=== PATIENT | male | born 1945 | race Caucasian/White ===

== ENCOUNTER 2017-01-28 13:18 | Inpatient (IN) ==
[2017-01-28] MEDS ORDERED: NS 1,000 ML IV SCH (15:30)
[2017-01-28] MEDS ORDERED: ZOFRAN IV PRN (15:30)
[2017-01-28] MEDS ORDERED: TYLENOL PO PRN (15:30)
[2017-01-28] MEDS ORDERED: NORCO-7.5 PO PRN (15:30)
--- NOTE | 2017-01-28 16:11 | EKG Report ---
Test Performed on : 01/28/2017 3:33:42 PM Test Reason : chest pain Blood Pressure : / mmHG Vent. Rate : 067 BPM Atrial Rate : 067 BPM P-R Int : 146 ms QRS Dur : 108 ms QT Int : 428 ms P-R-T Axes : -18 -01 173 degrees QTc Int : 452 ms Sinus rhythm. with premature atrial complexes. with aberrant conduction. T wave abnormality, consider lateral ischemia Abnormal ECG No previous ECGs available Confirmed by Temo Sousa MD ([id number]) on 02/01/2017 8:17:56 AM
[2017-01-28 16:48] LABS: INR 1.2; PROTIME 12.8 Seconds (9.2-11.7); PTT 28.4 Seconds (22.0-36.0)
[2017-01-28 16:49] LABS: EOS# 0.18 X1000 (0.0-0.7); EOS% 3.5 % (0.0-10.0); HEMATOCRIT 25.8 % (42.0-52.0); HEMOGLOBIN 7.1 g/dL (14.0-18.0); LYMPH# 1.19 X1000 (1.2-3.4); MANUAL DIFF NEEDED? YES; MCH 18.3 PG (27-31); MCHC 27.5 g/dL (33-37); MCV 66.7 FL (81-99); MONO# 0.35 X1000 (0.11-0.59); MONO% 6.8 % (1.7-9.3); MPV 10.5 FL (7.4-10.4); NEUT% 65.7 % (42.2-75.2); PLT 178 X1000 (130-400); RBC 3.87 XMIL (4.7-6.1)
[2017-01-28] MEDS ORDERED: SODIUM CHLORIDE 0.9% INJ SCH (17:00)
[2017-01-28 17:06] LABS: EOS 4 % (1-10); LYMPHS 17 % (21-51); MONO 5 % (1-9)
[2017-01-28 17:07] LABS: HYPOCHROM 2+
--- NOTE | 2017-01-28 17:13 | Diag Imaging Result Doc PS360 ---
CHEST-2 VIEWS - 01/28/2017 INDICATION: r/o pna TECHNIQUE: COMPARISON: 02/26/2015 FINDINGS: Stable CABG changes. Stable right-sided pacemaker. Stable cardiomegaly. There are increased markings in the bases, nonspecific. The appearance suggests mild pulmonary edema.. IMPRESSION: Possible mild interstitial pulmonary edema. Stable cardiomegaly. Electronically signed by Rio Mathew 01/28/2017 5:10 PM
--- NOTE | 2017-01-28 17:13 | HISTORY AND PHYSICAL ---
This is a 71-year-old who stated his doctor is Dr. Wilson. For 3 weeks now he has been having epigastric pain that comes on about 10-15 minutes after eating, really eating anything, even drinking water. It has become more intense and a little more common and so had an abdominal ultrasound done per Dr. Wilson made today. He has nonmobile gallstone, gallbladder wall thickening, pericholecystic fluid suspicious for acute cholecystitis, hepatosplenomegaly and so he was sent over here for admission. Will need a cholecystectomy to treat cholecystitis. PAST MEDICAL HISTORY: 1. Diabetes mellitus type 2. 2. Hypertension. 3. Hypercholesterolemia. 4. Coronary artery disease. He is status post 2 different bypasses by his report. He has had 7 bypasses and a couple stents placed. 5. Apparently congestive heart failure. He has been hospitalized I think twice for this. I am assuming this is systolic or ischemic cardiomyopathy. He appears well compensated now. 6. Peripheral vascular disease. He states that he has had 2 bypasses in his right leg and 4 stents in the left leg. I am not sure how accurate that. 7. He has had his appendix taken out. ALLERGIES: No known drug allergies other than cimetidine, codeine makes him nauseated. FAMILY HISTORY: Noncontributory. His daddy, giordano who grew up around [facility]. 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 SOCIAL HISTORY: Unremarkable. REVIEW OF SYSTEMS: In general no weight gain or loss. No fever, chills.HEENT: Unremarkable. Respiratory: No increased work of breathing or dyspnea. Cardiovascular: No chest pain or tachy palpitation. GI/: As noted above. Epigastric pain. Endocrinologic/Hematologic: No significant history. EXAM: Today temp 98.1 degrees, pulse 66, respirations 20, blood pressure 145/53.Pupils: Equal, round. CVP less than 6 cm. Lungs: Clear in all lung burgos. Cardiovascular: Regular rhythm and rate without murmur or S3. Abdomen: Soft, nontender, nondistended. Positive bowel sounds. No hepatosplenomegaly. He is tender to deep palpation in the epigastrium and over right under the right subcostal area consistent with a Pruitt's sign. Skin: Warm and dry. Weight 247 pounds, height 6 feet 3 inches. LAB: White count 5180, hematocrit 25, platelet count 178,000. Pro time 12.8, PTT 28. MEDICATIONS: At home aspirin 325 mg a day. He takes Coreg, takes Plavix, takes Nexium, Lasix and Pravachol. Do not have the doses yet. ASSESSMENT AND PLAN: 1. Acute cholecystitis. I will put him on some Zosyn 3.375 mg IV q.6 and we will give him some IV fluids. Note he is on Plavix so we will need to hold the Plavix. 2. History of coronary artery disease. Aware. No sign of active ischemia. We will check CPK and troponin. 3. History of what sounds like left ventricular systolic dysfunction or ischemic cardiomyopathy. He is well compensated at this time and I do not see any sign of active ischemia. We will of course check a chest x-ray and EKG. 4. Diabetes mellitus type 2. We will check pattern sugars and follow sugars closely as well as electrolytes and renal function. Consult Dr. Chema Purvis. We will put him on Protonix 40 mg IV q.12 hours. cc: Jacob Umanzor MD
[2017-01-28] MEDS ORDERED: KEFZOL 1 GM/D5W 1 GM/50 ML IVPB IV ONE (18:00)
[2017-01-28] MEDS: ZOSYN 3.375 GM/NS 3.375 GM/50 ML IVPB IV SCH (18:17)
[2017-01-28] MEDS: PROTONIX IV SCH (18:19)
[2017-01-28] MEDS: HUMULIN R SUBQ SCH ×2 (18:20→21:52)
--- NOTE | 2017-01-28 18:40 | CONSULTATION ---
DATE OF CONSULTATION: 01/28/2017 CHIEF COMPLAINT: Right upper quadrant pain and tenderness. HISTORY: This is a 71-year-old, obese gentleman who reports a 3-week history of right upper quadrant pain after eating. He had an ultrasound done today showing a stone stuck in the neck of his gallbladder and a dilated gallbladder with some thickening in the wall. PAST MEDICAL HISTORY: Pertinent for ischemic heart disease. Had coronary bypass in the past. He has been worked up by Dr. Villegas recently and found to have a satisfactory heart function. He has had peripheral vascular disease with some revascularization to both legs. He has had diabetes type 2, hypertension, hypercholesterolemia. He has had an appendectomy. FAMILY HISTORY: Noncontributory. 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 Denies alcohol abuse. MEDICATIONS: Listed. ALLERGIES: He has no known drug allergies except Tagamet. REVIEW OF SYSTEMS: Pertinent for the right upper quadrant pain and tenderness. He denies any bleeding. EXAM: He is afebrile. Heart rate 66, respiratory rate 20, blood pressure 145/53. No cervical adenopathy.Lungs: Bilateral breath sounds. Heart: Regular rhythm. Median sternotomy scar is noted. Abdomen: Rotund. He is tender in the right upper quadrant. Bowel sounds are present. He has trace peripheral edema. He is awake and alert. DIAGNOSTICS/LABS: White count 5200, hemoglobin 7.1, hematocrit 25.8, pro time is normal. ASSESSMENT: Acute calculous cholecystitis. I will plan a laparoscopic cholecystectomy. I have discussed it with him. We will plan to proceed in the morning. Anemia is of uncertain etiology. cc: Pete Purvis MD
[2017-01-29] MEDS: ZOSYN 3.375 GM/NS 3.375 GM/50 ML IVPB IV SCH ×4 (00:40→18:26)
[2017-01-29 00:48] LABS: URINE CULTURE NEEDED? NO; URINE MICRO REVIEW NEEDED? NO; URINE SOURCE CLEAN CATCH
[2017-01-29 01:09] LABS: BILIRUBIN URINE NEGATIVE (NEGATIVE); BLOOD URINE NEGATIVE (NEGATIVE); COLOR YELLOW; GLUCOSE URINE NEGATIVE (NEGATIVE); LEUKOCYTES URINE NEGATIVE (NEGATIVE); NITRITE URINE NEGATIVE (NEGATIVE); PH URINE 6.5; PROTEIN URINE TRACE mg/dL (NEGATIVE); SP GRAVITY URINE 1.013; TURBIDITY URINE CLEAR (CLEAR); UR EPITHELIAL CELLS <10 /HPF (<10); URINE BACTERIA NEGATIVE /HPF; URINE RBC <10 /HPF (<10); URINE WBC <10 /HPF (<10); UROBILINOGEN URINE 2 mg/dL (NORMAL)
[2017-01-29 05:21] LABS: HEMOGLOBIN A1C 6.9 % (4.8-6.0)
[2017-01-29 05:22] LABS: AGAP 10; ALBUMIN 3.5 g/dL (3.5-5.0); ALKALINE PHOSPHATASE 83 U/L (32-122); BUN 22 mg/dL (8-22); CALCIUM 8.1 mg/dL (8.8-10.2); CHLORIDE 103 mmol/L (98-107); COSMO 282; GOT 14 U/L (10-34); GPT 7 U/L (10-44); POTASSIUM 4.2 mmol/L (3.5-5.1); SODIUM 140 mmol/L (136-145); TCO2 27 mmol/L (25-35); TOTAL BILIRUBIN 1.02 mg/dL (0.20-1.00); TOTAL PROTEIN 6.4 g/dL (6.3-8.3)
[2017-01-29 05:25] LABS: EOS# 0.26 X1000 (0.0-0.7); HEMATOCRIT 24.7 % (42.0-52.0); HEMOGLOBIN 6.9 g/dL (14.0-18.0); LYMPH# 1.13 X1000 (1.2-3.4); LYMPH% 21.7 % (20.5-51.1); MANUAL DIFF NEEDED? YES; MCH 18.6 PG (27-31); MCHC 27.9 g/dL (33-37); MCV 66.6 FL (81-99); MONO# 0.41 X1000 (0.11-0.59); MONO% 7.9 % (1.7-9.3); MPV 10.4 FL (7.4-10.4); NEUT% 64.4 % (42.2-75.2); PLT 147 X1000 (130-400); RBC 3.71 XMIL (4.7-6.1)
[2017-01-29 05:36] LABS: FREE T4 0.84 ng/dL (0.93-1.70)
[2017-01-29] MEDS: PROTONIX IV SCH ×2 (06:01→18:25)
[2017-01-29 06:13] LABS: BANDS 2 % (0-1); EOS 6 % (1-10); LYMPHS 22 % (21-51); MONO 2 % (1-9); NRBC 1 % (0-0)
[2017-01-29 06:14] LABS: HYPOCHROM 2+
[2017-01-29] MEDS: HUMULIN R SUBQ SCH ×4 (06:19→20:06)
[2017-01-29] MEDS ORDERED: PRILOSEC PO SCH (07:00)
[2017-01-29] MEDS ORDERED: SODIUM CHLORIDE 0.9% ONE (07:19)
[2017-01-29] MEDS ORDERED: LR 1,000 ML ONE (07:19)
[2017-01-29] MEDS ORDERED: MARCAINE 0.25% PF/EPI 1:200,000 ONE (07:19)
[2017-01-29] MEDS ORDERED: KEFZOL 1 GM/D5W 1 GM/50 ML IVPB ONE (08:00)
[2017-01-29] MEDS ORDERED: NORCO-10 PO PRN (09:07)
--- NOTE | 2017-01-29 09:07 | Diag Imaging Result Doc PS360 ---
OPERATIVE CHOLANGIOGRAM - 01/29/2017 INDICATION: GALLBLADDER TECHNIQUE: The exam was performed of the patient's surgeon. Two images were submitted. COMPARISON: None FINDINGS: Contrast was infused into the cystic duct. The common bile duct appears normal. There is good passage of contrast into the duodenum. IMPRESSION: No evidence of complication. Electronically signed by Rio Mathew 01/29/2017 9:05 AM
[2017-01-29] MEDS ORDERED: LABETALOL ONE (09:41)
[2017-01-29] MEDS ORDERED: DIPRIVAN 1% ONE (09:43)
[2017-01-29] MEDS ORDERED: MORPHINE IV PRN (11:01)
--- NOTE | 2017-01-29 11:17 | OPERATIVE NOTE ---
PROCEDURE DATE: 01/29/2017 DATE OF PROCEDURE: 01/29/2017. PROCEDURE PERFORMED: Laparoscopic cholecystectomy with operative cholangiogram. SURGEON: Pete Purvis MD. PEARL GLUE DRIER: Radha Schmidt. PREOPERATIVE DIAGNOSIS: Acute calculous cholecystitis.; anemia. POSTOPERATIVE DIAGNOSIS: Acute calculous cholecystitis.; anemia. FINDINGS: The cholangiogram revealed a normal size common duct, free flow in the duodenum. No intraluminal filling defects were seen. DESCRIPTION OF PROCEDURE: Satisfactory general endotracheal anesthesia achieved, the abdomen was prepped and draped in a sterile fashion. We anesthetized the skin at the base of the umbilicus, made a vertical incision and dissected down the fascia. Scored the fascia, introduced 11 trocar into the abdominal cavity. We insufflated through this trocar. Under direct visualization is to 5 trocar in the midclavicular line, 5 trocar near the anterior axillary line, 11 mm trocar in the midepigastrium. We placed the patient in reverse Trendelenburg and turned him to the left. We identified the fundus of the gallbladder. We had to dissect the omental adhesions off the fundus and infundibulum of the gallbladder. We reflected the gallbladder cephalad and began dissection of the triangle of Calot. We identified the cystic duct, clipped in entrance of the gallbladder, incised the cystic duct and introduced a Dobson catheter. We shot the cholangiogram. The findings above were noted. We removed the cholangiogram catheter, clipped the cystic duct on the opposite side of cystic ductotomy x2 and transected. The cystic artery is identified, clipped proximally x2, distally x1, and divided. We then used the cautery spatula to dissect the gallbladder away from the liver. After complete separation of gallbladder from the liver, we changed videolaparoscope to the mid epigastric trocar, introduced a claw forceps through the umbilical trocar. We then delivered the gallbladder out of the abdominal cavity through the umbilical trocar site. We looked back. Hemostasis was satisfactory. We then desufflated the abdominal cavity and removed our trocars. We closed the fascia at the umbilicus with the 2-0 Polysorb [id number] stitch x3. We placed a 2-0 Polysorb fascial stitch in the epigastrium as well. We closed the skin at each incision with 4-0 Polysorb subcuticular stitches. Sterile OpSite's were applied. He tolerated it well. He was sent to the recovery room in satisfactory condition. cc: MD Gerry Ashton MD
[2017-01-29] MEDS ORDERED: LASIX IV ONE (11:49)
--- NOTE | 2017-01-29 16:40 | PROGRESS NOTE ---
DATE: 01/28/2017 SUBJECTIVE: The patient feels much better. He is status post laparoscopic cholecystectomy. OBJECTIVE: Vital signs: Remains afebrile, temperature 97.8 degrees, pulse 88, respirations 19, blood pressure 117/56. CVP less than 6 cm. Lungs: Clear in all lung burgos. Cardiovascular: Regular rhythm and rate without murmur or S3. Good urine output. LAB: White count 5200, hematocrit 24, platelet count 147,000. Sodium 140, potassium 4.2, chloride 103, bicarb 27, BUN 22, creatinine 1.1. Hemoglobin A1c was 6.9. Cholesterol profile noted. ASSESSMENT AND PLAN: Acute calculus cholecystitis. Laparoscopic cholecystectomy done. Looks like he is doing well. I think they will advance his diet. If does okay today then can go home in the morning. He is on Zosyn 3.375 mg IV q.6. I will continue for now. He is on clear liquid diet. He is getting hydrocodone for pain. cc: Jacob Umanzor MD
[2017-01-29] MEDS ORDERED: PERIDEX MT SCH (21:00)
[2017-01-30] MEDS: ZOSYN 3.375 GM/NS 3.375 GM/50 ML IVPB IV SCH ×2 (01:06→06:45)
[2017-01-30 04:05] VITALS: BP 126/65
[2017-01-30] MEDS: HUMULIN R SUBQ SCH (06:44)
[2017-01-30] MEDS: PROTONIX IV SCH (06:45)
[2017-02-01] MEDS ORDERED: ZOFRAN ONE (08:56)
[2017-02-01] MEDS ORDERED: NEOSTIGMINE ONE (08:56)
[2017-02-01] MEDS ORDERED: XYLOCAINE-MPF 2% ONE (08:57)
[2017-02-01] MEDS ORDERED: EPHEDRINE ONE (08:57)
[2017-02-01] MEDS ORDERED: ZEMURON ONE (08:57)
[2017-02-01] MEDS ORDERED: QUELICIN (DOSE) ONE (08:57)
[2017-02-01] MEDS ORDERED: ROBINUL ONE (08:57)
== END 2017-01-30 07:52 | disposition home or self-care (01) ==
LOC: SUATTDRO 13:18 → DIRADM 13:18 → 4N 15:04
PROVIDERS: ATTEND Emergency Medicine

== ENCOUNTER 2017-02-02 12:11 | Inpatient (IN) ==
[2017-02-02] MEDS ORDERED: LASIX IV ONE (13:24)
--- NOTE | 2017-02-02 14:28 | Diag Imaging Result Doc PS360 ---
EXAM: CHEST-PORTABLE HISTORY: chf TECHNIQUE: AP upright portable at 1350 COMMENT: There is cardiomegaly. There are sternotomy wires. There is a right pacemaker with leads in the right atrium and ventricle. Considering differences in inspiration there is been no significant change since 01/28/2017. IMPRESSION: Cardiomegaly. Stable chest. Electronically signed by Darwin Dang 02/02/2017 2:26 PM
[2017-02-02 14:29] LABS: BASO% 0.9 % (0.0-0.8); EOS# 0.49 X1000 (0.0-0.7); EOS% 8.4 % (0.0-10.0); HEMATOCRIT 27.6 % (42.0-52.0); HEMOGLOBIN 7.9 g/dL (14.0-18.0); LYMPH# 1.26 X1000 (1.2-3.4); LYMPH% 21.6 % (20.5-51.1); MANUAL DIFF NEEDED? YES; MCH 18.8 PG (27-31); MCHC 28.6 g/dL (33-37); MCV 65.7 FL (81-99); MONO# 0.37 X1000 (0.11-0.59); MONO% 6.4 % (1.7-9.3); MPV 10.4 FL (7.4-10.4); NEUT% 62.7 % (42.2-75.2); PLT 192 X1000 (130-400)
[2017-02-02 14:48] LABS: AGAP 11; ALBUMIN 3.5 g/dL (3.5-5.0); ALKALINE PHOSPHATASE 98 U/L (32-122); BUN 26 mg/dL (8-22); CALCIUM 8.5 mg/dL (8.8-10.2); CHLORIDE 98 mmol/L (98-107); COSMO 277; GOT 53 U/L (10-34); GPT 66 U/L (10-44); POTASSIUM 4.4 mmol/L (3.5-5.1); SODIUM 135 mmol/L (136-145); TCO2 26 mmol/L (25-35); TOTAL BILIRUBIN 1.18 mg/dL (0.20-1.00); TOTAL PROTEIN 6.4 g/dL (6.3-8.3)
--- NOTE | 2017-02-02 16:45 | CONSULTATION ---
DATE OF CONSULTATION: 02/02/2017 Mr. Pereira is a 71-year-old gentleman with known history of congestive heart failure, coronary artery disease, status post coronary artery bypass grafting, underwent gallbladder surgery last Tuesday. He comes with complaints of increasing shortness of breath with minimal exertion, increasing pedal edema. In addition, he also states that he had abdominal distention with oozing of serous fluid from his umbilical area where the incision was made. He has noticed some orthopnea as well. He denies chest pain suggestive of angina. There are no palpitations. There is no syncope. REVIEW OF SYSTEMS: A 14-point review of system was done. GI System: There is no history of nausea, vomiting, diarrhea. There is no history of hematemesis or melena. Central nervous system: No focal weakness to suggest a CVA or TIA. Systems: There is no dysuria or hematuria. Abdomen: GI as above. PAST MEDICAL HISTORY: 1. Coronary artery disease, status post coronary artery bypass grafting in July 2000, SVG to PDA, SVG to OM, Y graft to LAD and OM, previous LAI to LAD was intact. 2. Severe LV dysfunction. 3. Systolic heart failure. 4. AICD placement. 5. Anticoagulation therapy. 6. Atrial flutter fibrillation. 7. Hypertension. 8. History of diabetes. 9. Peripheral vascular disease, occluded bilateral SFA. 10. Chronic renal insufficiency. 11. Right femoral to popliteal bypass grafting with saphenous vein graft by Dr. Herrera 09/27/2013. 12. Recent gallbladder surgery. 13. 01/03/2017 Lexiscan, severe fixed defect. Last echocardiogram revealed ejection fraction of 25%. 14. Patient is intolerant to Entresto. HOME MEDICATIONS: Include Xarelto 20 mg a day. Aspirin 81 mg a day. Diovan 160. Cardizem CD 120. Isosorbide mononitrate 60. Pravastatin 40. Lasix 40 p.o. Coreg 6.25 b.i.d. Omeprazole 20. Lantus 36 units subcu once a day. Victoza 1.8 subcu daily. ProAir inhalers. Tramadol. ALLERGIES: He is allergic to Tagamet. SOCIAL HISTORY: He chews tobacco. Does not drink. There is no history of alcohol abuse. PHYSICAL EXAMINATION: Vital Signs: Blood pressure was 160/67. Cardiovascular System: Jugular venous pressure was elevated. First and second heart sounds were heard. There was systolic murmur. Respiratory System: Bibasilar inspiratory crepitations. Abdomen: Was obese, soft. Ascites noted. Recent scars of surgery noted. Bilateral pitting pedal edema. Central nervous system: Alert, oriented, was moving extremities. LABORATORY EXAMINATION: Revealed a sodium 135, potassium 4.4. BUN 26, creatinine 1.0. Bilirubin abnormal at 1.18. AST 53, ALT 66. Chest x-ray: Cardiomegaly, stable chest. ASSESSMENT AND PLAN: Mr. Romain Pereria is a 71-year-old gentleman with history of increasing shortness of breath, cardiomyopathy, had increasing pedal edema and abdominal distention. He also complains of having had oozing from the site of surgery, serosanguineous. He had gallbladder surgery on by Dr. Purvis. Also has past medical history of AICD placement, CABG and diabetes. RECOMMENDATIONS: 1. Given this we will treat him with IV Lasix intravenously given his probable ascites as well as increasing pedal edema and shortness of breath. 2. Continue with his current DONTA inhibitors. 3. He is anticoagulated with Xarelto for stroke prophylaxis. Would recommend continuing that. 4. For GERD he is on omeprazole. I have not made any changes. 5. Hypercholesterolemia. He is on pravastatin. I have not made any changes to his medication. 6. He is on Victoza insulin and Lantus. I have not made any changes. Thank you for the consult. We will follow hospital course. In addition, we will get an ultrasound of his abdomen to assess for ascites and have Dr. Purvis to see him as well. He has an appointment later this week to follow up postoperatively. cc: Good Villegas MD
[2017-02-02 17:28] LABS: IRON SATURATION 3 %; TIBC 378 ug/dL; TOTAL IRON 13 ug/dL (53-167); UNBOUND IRON 365 ug/dL (112-346)
--- NOTE | 2017-02-02 18:42 | PROVIDER DOCUMENTATION ---
This chart was entered by Марина Narvaez Scribe, acting as scribe for Pete Amor MD. HPI-Respiratory General - General Chief Complaint: Shortness of Breath Stated Complaint: FLUID BUILD UP Time Seen by Provider: 02/02/17 12:58 Source: patient Allergies/Adverse Reactions: Patient Allergies Allergy/AdvReac Type Severity Reaction Status Date / Time cimetidine [From Tagame] AdvReac HIVES Verified 02/02/17 17:28 cimetidine HCl * AdvReac HIVES Verified 02/02/17 17:28 [From Tagamet] Home Medications: Home Medication List Medication Instructions Recorded Confirmed Last Taken Type Albuterol Sulfate [Proair Hfa] 8.5 gm INH DIRECTED 02/02/17 02/02/17 Unknown History Diltiazem HCl [Cartia Xt] 120 mg PO DAILY 02/02/17 02/02/17 Unknown History Furosemide [Lasix] 60 mg PO DAILY 02/02/17 02/02/17 Unknown History Insulin Glargine,Hum.rec.anlog 100 unit ORDERED DIRECTED 02/02/17 Unknown History [Lantus] Pravastatin Sodium [Pravastatin 40 mg PO DAILY 02/02/17 02/02/17 Unknown History Sodium] Ranolazine [Ranexa] 1,000 mg PO DAILY 02/02/17 02/02/17 Unknown History Rivaroxaban [Xarelto] 20 mg PO DAILY 02/02/17 02/02/17 Unknown History Valsartan [Valsartan] 160 mg PO DAILY 02/02/17 02/02/17 Unknown History - History of Present Illness-Resp Nature of Presenting Problem: 71 Y/o M presents to ED with Shortness of Breath. Pt was sent her by Dr. Villegas due to fluid build up. C/o of difficulty of breathing qll day but worsens at night. Pt has a hx of heart failure. Quality of Pain: reports: tightness Severity in ED: reports: moderate, severe Onset/Duration: reports: 2 days ago Timing: reports: still present, getting worse Associated Symptoms: reports: shortness of breath. denies: cough, dizziness, fever/chills Recently seen or treated by another doctor?: Yes Review of Systems - Adult - REVIEW OF SYSTEMS - ADULT Constitutional: denies: chills, fever Eyes: reports: no symptoms reported Ears, Nose, Mouth & Throat: reports: no symptoms reported Cardiovascular: reports: PND. denies: chest pain Respiratory: reports: dyspnea on exertion, shortness of breath. denies: cough Gastrointestinal: denies: abdominal pain, diarrhea, nausea, vomiting Genitourinary: reports: no symptoms reported Musculoskeletal: reports: no symptoms reported Integumentary: reports: no symptoms reported Neurological: reports: no symptoms reported Psychiatric: reports: no symptoms reported Endocrine: reports: no symptoms reported Hematologic/Lymphatic: reports: no symptoms reported Allergic/Immunologic: reports: no symptoms reported All Other Systems: Reviewed and Negative Past History - Adult - PAST MEDICAL HISTORY-ADULT Review of Records: reports: Old Records Reviewed, Nursing Assessment Review, Medications Reviewed, Social history reviewed & non-contributory. Cardiovascular: reports: cardiac disease, CHF, HTN, hyperlipidemia Respiratory: reports: asthma Endocrine/Immune: reports: Diabetes - PRIOR SURGERIES/PROCEDURES Surgical/Procedure History: reports: CABG, cardiac stent - IMMUNIZATION STATUS Childhood Immunizations: See Nurse Assessment Flu Vaccine: See Nurse Assessment Physical Exam-General - CONSTITUTIONAL General Appearance: alert, no apparent distress - EYES Eyes: PERRL/EOMI, pink conjunctivae, anisocoria - HEAD, EARS, NOSE, MOUTH & THROAT HENMT: normocephalic/atraumatic, normal ENT inspection, TMs normal, pharynx normal. negative: moist mucous membranes (tongue poorly pa) - NECK Neck: full range of motion, supple, normal inspection, lymphadenopathy (mild distention) - RESPIRATORY Respiratory: lungs clear, normal breath sounds - CARDIOVASCULAR Cardiovascular: regular rate, rhythm, other (pascemaker noted on right side of chest) - GASTROINTESTINAL (ABDOMEN) Abdominal Exam: non tender, soft - MUSCULOSKELETAL Back Exam: normal inspection, no CVA tenderness, no vertebral tenderness Extremity: pedal edema (3+) - SKIN Integumentary: normal color, normal turgor, warm/dry - NEUROLOGIC Neurologic: grossly normal - PSYCHIATRIC Psych/Mental Status: normal mood/affect, normal thought content, normal thought process, oriented x 3 Progress - PLAN OF CARE/RESULTS Progress/Plan/Lab Results: Vital Signs - 8 hr 02/02/17 12:27 02/02/17 16:31 02/02/17 18:21 Temperature 98.5 F Pulse Rate 76 73 68 Respiratory Rate 18 17 15 Blood Pressure 160/67 172/88 168/79 O2 Sat by Pulse Oximetry 100 96 99 Laboratory Results - last 24 hr 02/02/17 02/02/17 02/02/17 14:05 14:05 14:05 WBC 5.82 RBC 4.20 L Hgb 7.9 L Hct 27.6 L MCV 65.7 L MCH 18.8 L MCHC 28.6 L RDW Std Deviation 19.9 H Plt Count 192 MPV 10.4 Immature Gran % (Auto) 0.0 Neut % (Auto) 62.7 Lymph % (Auto) 21.6 [place] % (Auto) 6.4 Eos % (Auto) 8.4 Baso % (Auto) 0.9 H Immature Gran # (Auto) 0.00 Neut # (Auto) 3.65 Lymph # (Auto) 1.26 [place] # (Auto) 0.37 Eos # (Auto) 0.49 Baso # (Auto) 0.05 Segmented Neutrophils Cancelled Band Neutrophils Cancelled Lymphocytes Cancelled Monocytes Cancelled Eosinophils Cancelled Basophils Cancelled Metamyelocytes Cancelled Myelocytes Cancelled Promyelocytes Cancelled Nucleated RBCs Cancelled Atypical Lymphocytes Cancelled Blast Cells Cancelled Hypochromia Cancelled Vacuolization Cancelled Toxic Granulation Cancelled Dohle Bodies Cancelled Large Platelets Cancelled Polychromasia Cancelled Poikilocytosis Cancelled Basophilic Stippling Cancelled Anisocytosis Cancelled Microcytosis Cancelled Macrocytosis Cancelled Spherocytes Cancelled Sickle Cells Cancelled Target Cells Cancelled Ovalocytes Cancelled Stomatocytes Cancelled [place] Bodies Cancelled [place] Cells Cancelled Unidentified Cells Cancelled Schistocytes Cancelled Sodium 135 L Potassium 4.4 Chloride 98 Carbon Dioxide 26 Anion Gap 11 BUN 26 H Creatinine 1.0 Estimated GFR/1.73 m2 > 60 BUN/Creatinine Ratio 26 Glucose 145 H Calculated Osmolality 277 Calcium 8.5 L Iron 13 L TIBC 378 % Saturation 3 Unsat Iron Binding 365 H Total Bilirubin 1.18 H AST 53 H ALT 66 H Alkaline Phosphatase 98 Total Protein 6.4 Albumin 3.5 Globulin 2.9 Albumin/Globulin Ratio 1.2 Orders Category Date Time Status CHEST-PORTABLE [RAD] Stat Exams 02/02/17 13:27 Completed CBC WITH ELECTRONIC DIFF [HEME] Stat Lab 02/02/17 14:05 Completed COMPREHENSIVE METABOLIC PANEL [CHEM] Stat Lab 02/02/17 14:05 Completed UIBC W TOTAL IRON [CHEM] Stat Lab 02/02/17 14:05 Completed Furosemide [Lasix] Med 02/02/17 13:24 Discontinued 60 mg IV NOW ONE Result Diagrams: 02/02/17 14:05 02/02/17 14:05 - CONSULTS/PCP/HOSPITALIST Notification #1 *Consult/PCP/Hospitalist*: Dr Caceres Time Discussed: 18:39 Consult Disposition: Will see in ED Departure - Departure Date of Disposition Decision: 02/02/17 Time of Disposition Decision: 18:40 DIAGNOSIS: CHF (congestive heart failure) Anemia, iron deficiency Qualifiers: Iron deficiency anemia type: unspecified iron deficiency Qualified Code(s): D50.9 - Iron deficiency anemia, unspecified Disposition: ADMITTED INPATIENT 09 Certified Medical Emergency: Emergent Condition: Fair Referrals and Follow-Ups: Gerry Wilson MD [Primary Care Provider] - - Critical Care Note This patient required my direct & personal management of CC.: Yes This chart was documented by the indicated scribe, (Марина Narvaez Scribe) and accurately reflects the services I performed and decisions made by me, Pete Amor MD, as attested by the provider's signature.
[2017-02-02] MEDS: HUMALOG SUBQ SCH (22:52)
[2017-02-03] MEDS: LASIX IV SCH ×3 (00:06→21:51)
[2017-02-03] MEDS ORDERED: VALIUM IV ONE (00:26)
--- NOTE | 2017-02-03 02:28 | HISTORY AND PHYSICAL ---
PRIMARY CARE PROVIDER: Dr. Gerry Wilson. PICKLING OPERATOR: Dr. Villegas. CHIEF COMPLAINT: Increasing shortness of breath and swelling. Sent here by Dr. Villegas for evaluation. HISTORY OF PRESENT ILLNESS: This is a 71-year-old male with a history of congestive heart failure. Last ejection fraction was noted to be around 24% in September of this year. He has other comorbidities, such as diabetes mellitus type 2 and hypertension, as well as coronary artery disease, status post 7 total bypasses within 2 different surgeries, cardiac stent placement. He is a known vasculopathic, with noted peripheral or vascular disease, and has had 2 bypasses, which I believe were a left femoral bypass, and then stenting in the right leg. As noted above, over the last year, the patient states that he has been having to sleep on 2 pillows. He has further complaints of dyspnea on exertion, orthopnea, and PND. He can ambulate for roughly 100 feet without having to take a rest break. He takes all of his medications appropriately, and this last Tuesday, I believe, he had a cholecystectomy. He was noted to have anasarca on examination, with a serous drainage from his umbilicus incision. A chest x-ray was obtained, which showed increased pulmonary vascular markings. The patient does have a pacemaker, which appears to be in a good position, as well as cardiomegaly. LABORATORY DATA: Was around the patient's baseline, but he was noted to have profound chronic anemia, which appears to be from iron deficiency. Also, the patient had elevated liver enzymes. AST 53, ALT 66, and a total bilirubin of 1.18, which can not be quantified at this time. The patient will be admitted to the medical floor for further evaluation and treatment. PAST MEDICAL HISTORY: 1. Congestive heart failure, with a ejection fraction of around 24%, tested in September 2016. 2. Hypertension. 3. Hyperlipidemia. 4. Coronary artery disease, status post 2 coronary artery bypass grafts. He had a total of 7 bypasses, with at least 2 cardiac stents placed. 5. Peripheral vascular disease. PREVIOUS SURGICAL HISTORY: 1. Appendectomy. 2. Right femoral bypass of the lower extremity. 3. Left stenting of the lower extremity. 4. Cholecystectomy. 5. Pacemaker implantation. Unsure if this is an AICD. ALLERGIES: The patient is allergic to some cimetidine, and codeine makes him nauseated. FAMILY HISTORY: Father had diabetes and coronary artery disease, ultimately passing away from a myocardial infarction at age 68. Brother had a myocardial infarction, also passing away at 68. SOCIAL HISTORY: I believe he grew up in the [place] area. 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 He uses smokeless tobacco in the form of dip. He also states that he smokes cigarillos, at least 2 in the morning, sometimes with an additional one during the day after dinner. He denies illicit drug use. States that he did have a history of alcohol use, but has not drank in several years. REVIEW OF SYSTEMS: A 14-point review of systems conducted with the patient. Pertinent positives listed above in the HPI. All other systems were reviewed and found to be negative. PHYSICAL EXAMINATION: VITAL SIGNS: Temperature 98.5 degrees, pulse 62, respirations 15, blood pressure 168/84, oxygen saturation 98% on 2 L nasal cannula. GENERAL: Very pleasant 71-year-old male, lying in the ER stretcher. He is alert, oriented to person, place, time, and situation. He is in no acute distress at this time. HEENT: Head is atraumatic, normocephalic. Pupils equal, round, reactive to light. Extraocular eye movements intact. Sclera is icteric, subconjunctivae is pale. Oral mucosa is moist. NECK: Supple. No JVD. Trachea is midline. CARDIAC: S1-S2 appreciated. Regular rhythm. No murmurs, gallops, or rubs. CHEST: Symmetrical rise and fall with respirations. Right-sided pacemaker noted. LUNGS: Diminished bilaterally. Noted increased tactile fremitus on examination. Otherwise, lungs were clear. No crepitations. No rhonchi. No rales. ABDOMEN: Protuberant, with nonpitting edema to the abdomen. Laparoscopic incisions noted from previous cholecystectomy. Tenderness noted to the surgical sites. Serous fluid drainage noted from the umbilicus incision. Negative fluid wave test. Bowel sounds present in all 4 quadrants. Normoactive. No pulsatile mass. No organomegaly could be palpated. EXTREMITIES: No clubbing or cyanosis. 2+ pitting edema, bilateral lower extremities, from mid jeff to ankle. 2+ pedal pulses bilaterally. GENITOURINARY: Patient voids. No bladder distention noted. Otherwise, deferred. NEUROLOGICAL: No motor focal deficits noted. Otherwise, nonfocal examination. The patient was alert and oriented x4. SKIN: Warm and intact, moist, as noted from laparoscopic sites in the abdomen. Mild erythema noted around the surgical sites. No signs or symptoms of infection. No warmth. No purulent drainage noted. He is mildly jaundiced as well, from the umbilicus up, and from the umbilicus down, he was pale. DIAGNOSTIC DATA: Chest x-ray shows cardiomegaly, mildly increased pulmonary vascular markings. LABORATORY DATA: WBC 5.82, hemoglobin 7.9, hematocrit 27.6, platelet count is 192,000. Sodium 135, potassium 4.4, chloride 98, carbon dioxide 26, BUN 26, creatinine 1, glucose 145. Total bilirubin is 1.18. AST is 53. ALT is 66. Iron is 13. TIBC is 378. ASSESSMENT AND PLAN: 1. Congestive heart failure, with exacerbation. Patient is noted to have a 24% ejection fraction. He takes 60 mg of Lasix at home daily. Will give 40 mg of Lasix b.i.d. while in the hospital. He received a 60 mg IV dose in the emergency room. Strict intake and output. Weights will be checked daily. Echocardiogram or a stress test will not be needed, as both have been done recently. 2. Iron deficiency anemia. We will give Venofer 200 mg daily x3 doses, and then the patient can be discharged on further supplementation. 3. Hypertension. Continue home medications, Diovan and Cardizem. 4. Hyperlipidemia. Continue pravastatin. 5. Chronic pacemaker noted. Continue Xarelto. Diabetes mellitus, that is insulin-dependent. Will start fingerstick blood sugars before meals and at bedtime, and treat with moderate sliding scale. We will place on a heart healthy diabetic diet. Further recommendations per Cardiology. Will consult Dr. Villegas. Will trend patient's clinical progress. Dictated by YOHAN Balderas for Ayo Osullivan MD cc: MD Gerry Van MD Harley C. Bailey, CRNP Lloyd James, MD
[2017-02-03] MEDS: HUMALOG SUBQ SCH ×4 (06:26→21:56)
[2017-02-03 06:38] LABS: EOS# 0.44 X1000 (0.0-0.7); EOS% 9.2 % (0.0-10.0); HEMATOCRIT 26.7 % (42.0-52.0); HEMOGLOBIN 7.4 g/dL (14.0-18.0); LYMPH# 1.01 X1000 (1.2-3.4); LYMPH% 21.2 % (20.5-51.1); MANUAL DIFF NEEDED? YES; MCH 18.1 PG (27-31); MCHC 27.7 g/dL (33-37); MCV 65.4 FL (81-99); MONO# 0.46 X1000 (0.11-0.59); MONO% 9.6 % (1.7-9.3); PLT 187 X1000 (130-400); RBC 4.08 XMIL (4.7-6.1)
[2017-02-03 06:52] LABS: AGAP 10; BUN 24 mg/dL (8-22); CALCIUM 8.3 mg/dL (8.8-10.2); CHLORIDE 102 mmol/L (98-107); COSMO 287; POTASSIUM 4.1 mmol/L (3.5-5.1); SODIUM 141 mmol/L (136-145); TCO2 29 mmol/L (25-35)
[2017-02-03 06:54] LABS: EOS 6 % (1-10); HYPOCHROM 1+; LYMPHS 24 % (21-51); MONO 4 % (1-9)
[2017-02-03] MEDS ORDERED: DIOVAN PO SCH (09:00)
[2017-02-03] MEDS ORDERED: VENOFER IV SCH (09:00)
[2017-02-03] MEDS ORDERED: CARDIZEM CD PO SCH (09:00)
[2017-02-03] MEDS: PRAVACHOL PO SCH (09:34)
[2017-02-03] MEDS: XARELTO PO SCH (09:34)
[2017-02-03] MEDS: RANEXA PO SCH (09:34)
[2017-02-03] MEDS: VALIUM PO PRN ×2 (09:56→21:51)
[2017-02-03] MEDS ORDERED: ZAROXOLYN PO ONE (11:49)
--- NOTE | 2017-02-03 12:14 | PROGRESS NOTE ---
DATE: 02/03/2017 SUBJECTIVE: The patient is feeling better. He complained of having cramp after he got his Lasix. Denies having any fever or chills. He did not have any nausea, vomiting or diarrhea. OBJECTIVE: Vital signs: Blood pressure 131/71, pulse of 66, respirations 21, temperature of 98.3 degrees, satting 97% on 2 L nasal cannula. General appearance: Thin, white male in no acute distress. HEENT: Anicteric sclerae. Clear conjunctivae. Neck: Supple. No JVD. No bruit. Cardiovascular: S1, S2. Normal rate and rhythm. No murmur, rubs or gallops. Pulmonary: Clear to auscultation bilaterally. GI: Soft, nontender, nondistended. Normoactive bowel sounds. Musculoskeletal: No clubbing, cyanosis, or edema. ASSESSMENT/PLAN: A 71-year-old admitted to the hospital for increasing shortness of breath: 1. Shortness of breath is probably secondary to associated congestive heart failure exacerbation. We will continue diuretics. Will change his Lasix to Bumex to see if this helps with his cramping. 2. History of atrial fibrillation. The patient is on Xarelto and diltiazem for rate control and anticoagulation. He is also on Coreg. 3. Iron deficiency anemia. We will continue iron supplement. 4. Hyperlipidemia and coronary artery disease. We will continue on Pravachol for now. 5. Chronic angina. Continue Ranexa. 6. Diabetes type 2. Continue sliding scale insulin. CODE STATUS: The patient is a full code.
[2017-02-03] MEDS: COREG PO SCH ×2 (12:20→21:51)
[2017-02-03] MEDS: LANOXIN PO SCH (12:21)
[2017-02-03] MEDS: ALDACTONE PO SCH (12:21)
[2017-02-03] MEDS: ENTRESTO 24 MG-26 MG TABLET PO SCH ×2 (14:44→21:51)
[2017-02-03] MEDS ORDERED: BUMEX IV SCH (21:00)
[2017-02-04] MEDS ORDERED: TYLENOL PO PRN (02:29)
[2017-02-04] MEDS: ZOFRAN IV PRN ×2 (05:14→13:28)
[2017-02-04] MEDS: HUMALOG SUBQ SCH ×4 (06:28→20:58)
[2017-02-04 07:31] LABS: BASO% 0.5 % (0.0-0.8); EOS# 0.44 X1000 (0.0-0.7); EOS% 4.7 % (0.0-10.0); HEMATOCRIT 30.9 % (42.0-52.0); IMM GRAN# 0.03 X1000 (0.0-0.04); IMM GRAN% 0.3 % (0.0-0.5); LYMPH# 0.89 X1000 (1.2-3.4); LYMPH% 9.4 % (20.5-51.1); MANUAL DIFF NEEDED? NO; MCH 18.8 PG (27-31); MCHC 29.1 g/dL (33-37); MCV 64.4 FL (81-99); MONO# 0.52 X1000 (0.11-0.59); MONO% 5.5 % (1.7-9.3); MPV 10.2 FL (7.4-10.4); NEUT% 79.6 % (42.2-75.2); PLT 216 X1000 (130-400)
[2017-02-04 07:46] LABS: ALBUMIN 3.9 g/dL (3.5-5.0); DIRECT BILIRUBIN 0.3 mg/dL (0.00-0.20); TOTAL BILIRUBIN 1.47 mg/dL (0.20-1.00); TOTAL PROTEIN 6.4 g/dL (6.3-8.3)
--- NOTE | 2017-02-04 07:57 | Diag Imaging Result Doc PS360 ---
EXAM: ABDOMEN FLAT/UPRIGHT HISTORY: Abdominal Pain TECHNIQUE: Three views flat and upright COMMENT: There is stool throughout the colon including the rectosigmoid where there is formed stool. There is atherosclerotic calcification in the distal aorta and iliac arteries. There may be vascular calcifications in the renal arteries particularly on the left. There are surgical clips in the right upper quadrant. There is no evidence organomegaly or mass. The small bowel and stomach are not distended. IMPRESSION: Constipation. Atherosclerosis. Electronically signed by Darwin Dang 02/04/2017 7:55 AM
[2017-02-04 08:00] LABS: POTASSIUM 4.4 mmol/L (3.5-5.1)
[2017-02-04] MEDS: ENTRESTO 24 MG-26 MG TABLET PO SCH ×2 (09:15→20:43)
[2017-02-04] MEDS: PRAVACHOL PO SCH (09:15)
[2017-02-04] MEDS: XARELTO PO SCH (09:15)
[2017-02-04] MEDS: LASIX IV SCH (09:16)
[2017-02-04] MEDS: ALDACTONE PO SCH (09:16)
[2017-02-04] MEDS: LANOXIN PO SCH (09:16)
[2017-02-04] MEDS: COREG PO SCH ×2 (09:16→20:42)
[2017-02-04] MEDS: RANEXA PO SCH (09:16)
[2017-02-04] MEDS: VALIUM PO PRN (09:21)
[2017-02-04] MEDS: COLACE PO SCH (10:25)
[2017-02-04] MEDS: NORCO-5 PO PRN ×2 (10:25→14:24)
[2017-02-04] MEDS: MIRALAX PO SCH (10:25)
--- NOTE | 2017-02-04 10:46 | PROGRESS NOTE ---
DATE: 02/04/2017 SUBJECTIVE: The patient is complaining of abdominal pain. He has described the pain as the same pain that he had when he had the gallbladder removed this past Tuesday. No bowel movement since admission, and no bowel movements at home. X-ray showed some evidence of constipation. The patient is still having pain. No fever. No chills. No nausea, vomiting, or diarrhea. OBJECTIVE: Vital signs: Blood pressure 127/48, pulse of 55, respirations 16, temperature of 97.3 degrees, satting 96% on 3 L. General Appearance: Well developed, well nourished, white male in moderate distress due to right upper quadrant pain. HEENT: Anicteric sclerae. Clear conjunctivae. Neck: Supple. No JVD. No bruit. Cardiovascular: S1, S2. Normal rate and rhythm. No murmur, rubs, or gallops. Pulmonary: Clear to auscultation bilaterally. GI: Tender to palpation on the right upper quadrant while the wounds are well healed. : Normal. Musculoskeletal: No clubbing, cyanosis, or edema. LABORATORY: White count 9.42, hemoglobin 9.0, hematocrit of 30.9 platelets of 216. Chemistry: Sodium 135, potassium 4.4, chloride 92, bicarbonate 34. BUN 21, creatinine 1.2, glucose of 147. Liver function tests within normal limits. ASSESSMENT AND PLAN: This is a 71-year-old admitted to the hospital for acute congestive heart failure exacerbation. 1. Congestive heart failure exacerbation, acute systolic. We will change his Lasix to Bumex today since he is still having cramps with Lasix and the Bumex does not give him cramps. Cardiology is following. The patient is doing well from the standpoint of orthopnea. 2. Right upper quadrant pain probably resolved after surgery. X-ray showed some constipation. We will give him Colace and MiraLAX if this does not resolve. Will get a scan with contrast and make sure there is no leakage. We changed his diet to clear liquid diet. 3. History of heart failure. As above, will continue Aldactone, Coreg and digoxin. 4. History of atrial fibrillation. We will continue digoxin, rate control with Coreg and Xarelto. 5. Code status. The patient is a full code. NOTE: Positive gram-negative burt culture from the wound. The wounds are healing. I am not going to plan to treat the patient.
[2017-02-04] MEDS: VENOFER IV SCH (10:52)
[2017-02-04] MEDS: BUMEX IV SCH (20:43)
[2017-02-05] MEDS: HUMALOG SUBQ SCH ×4 (06:06→21:44)
[2017-02-05 06:46] LABS: BASO% 0.3 % (0.0-0.8); EOS# 0.26 X1000 (0.0-0.7); EOS% 1.7 % (0.0-10.0); HEMATOCRIT 31.3 % (42.0-52.0); IMM GRAN# 0.05 X1000 (0.0-0.04); IMM GRAN% 0.3 % (0.0-0.5); LYMPH# 1.14 X1000 (1.2-3.4); LYMPH% 7.5 % (20.5-51.1); MANUAL DIFF NEEDED? YES; MCH 18.4 PG (27-31); MCHC 28.8 g/dL (33-37); MONO% 6.6 % (1.7-9.3); MPV 10.1 FL (7.4-10.4); NEUT% 83.6 % (42.2-75.2); PLT 214 X1000 (130-400); RBC 4.89 XMIL (4.7-6.1)
[2017-02-05 07:25] LABS: CALCIUM 8.8 mg/dL (8.8-10.2); POTASSIUM 4.2 mmol/L (3.5-5.1)
[2017-02-05 07:26] LABS: BANDS 8 % (0-1); LYMPHS 6 % (21-51); MONO 6 % (1-9)
[2017-02-05] MEDS: NORCO-5 PO PRN ×2 (07:27→12:02)
[2017-02-05] MEDS: ZOFRAN IV PRN (09:00)
[2017-02-05] MEDS: VENOFER IV SCH (09:00)
[2017-02-05] MEDS: ENTRESTO 24 MG-26 MG TABLET PO SCH ×2 (09:01→20:23)
[2017-02-05] MEDS: XARELTO PO SCH (09:01)
[2017-02-05] MEDS: COLACE PO SCH (09:01)
[2017-02-05] MEDS: PRAVACHOL PO SCH (09:01)
[2017-02-05] MEDS: COREG PO SCH ×2 (09:01→20:23)
[2017-02-05] MEDS: ALDACTONE PO SCH (09:01)
[2017-02-05] MEDS: RANEXA PO SCH (09:01)
[2017-02-05] MEDS: MIRALAX PO SCH (09:02)
[2017-02-05] MEDS: LANOXIN PO SCH (09:02)
[2017-02-05] MEDS: BUMEX IV SCH ×2 (09:02→20:23)
--- NOTE | 2017-02-05 11:21 | PROGRESS NOTE ---
DATE: 02/05/2017 SUBJECTIVE: The patient is feeling better. Abdominal pain has much improved. The patient had a bowel movement, making him feel a whole lot better. He did not have any fever or chills, did not have any nausea, vomiting, or diarrhea. OBJECTIVE: Vital signs: Blood pressure 134/49, pulse of 58, respirations 20, temperature 97.9, sats of 94% on room air. General appearance: A well-developed, well-nourished white male in no acute distress. HEENT: Anicteric. Clear conjunctivae. Neck: Supple, no JVD, no bruit. Cardiovascular: S1, S2, normal rate and rhythm. No murmur, rubs, or gallop. Pulmonary: Clear to auscultation bilaterally. GI: Just mild tenderness to deep palpation. The patient did have surgery a week ago. Lower extremities: No clubbing, cyanosis, or edema. LABORATORY: White count 15.26, hemoglobin 9.0, hematocrit 31.3, platelets 214. Chemistry: Sodium 132, potassium 4.2, chloride 88, bicarbonate 32, BUN 25, creatinine 1.2, glucose 159. ASSESSMENT AND PLAN: This is a 27-year-old admitted to the hospital for acute congestive heart failure exacerbation. 1. Acute systolic congestive heart failure exacerbation. Will continue Bumex twice a day. Will keep the patient on digoxin for his congestive heart failure 2. Iron deficiency noted. 3. Hyponatremia is also noted. We will watch the patient carefully. He is also on Aldactone, which can also decrease his sodium and he is also on Entresto per Cardiology for his heart failure. If his sodium continues to drop, will stop Aldactone. 4. Hyperlipidemia. Continue Pravachol. 5. Stable angina. Will continue Ranexa. 6. History of atrial fibrillation. Continue Xarelto and discharge on this--will correct for rate control. 7. Abdominal pain. The patient had a bowel movement, much improved. Will advance his diet today. This patient is a full code, as well.
[2017-02-05] MEDS ORDERED: SAMSCA PO ONE (13:09)
--- NOTE | 2017-02-05 13:26 | PROGRESS NOTE ---
DATE: 02/05/2017 SUBJECTIVE: Mr. Pereira reports he feels better. PHYSICAL EXAMINATION: Vital Signs: He is afebrile. Heart rate is in the 50s. His systolic blood pressures have been anywhere from the 110s to 130s predominantly. His I's and O's over the course of the hospitalization have been negative 7.5 L. General: No acute distress. Cardiovascular: He is in a regular rate and rhythm. He has no obvious murmurs. No S3. He has trace lower extremity edema. Chest: Sounds clear bilaterally. No increased work of breathing. Abdomen: Soft, nontender. PERTINENT DATA: White count is 15.2, hematocrit is 31, platelet count 214,000. His sodium is 132, potassium 4.2, BUN 25, and creatinine is 1.2. ASSESSMENT: 1. Systolic heart failure. 2. Atrial fibrillation. PLAN: We will continue him on his current medications and current level of diuresis. I will give him 1 dose of Samsca 15 mg today, considering his hyponatremia. We will check a proBNP in the morning. Potentially, he is near time for discharge, considering his symptom improvement and profound level of diuresis. cc: Jim Murphy MD
--- NOTE | 2017-02-05 18:24 | Diag Imaging Result Doc PS360 ---
EXAM: ABDOMEN/PELVIS W/CONTRAST INDICATION: abdominal pain COMPARISON: None. FINDINGS: There has been a recent cholecystectomy. There are expected mild postsurgical changes in the gallbladder fossa. There is no evidence of bile leak. There is no evidence of biliary dilatation. There is mild renal cortical scarring at the upper pole of the right kidney. There is trace nonspecific fluid layering in the pelvis. There is no evidence of bowel obstruction. There is no free abdominal gas. There are a few colonic diverticula but there is no evidence of diverticulitis. There is extensive aortoiliac atherosclerotic calcification. There is no evidence of aneurysm. The remainder of the solid viscera of the abdomen and pelvis and the remainder of the GI tract are essentially unremarkable. There are degenerative changes throughout the spine. The bony structures are grossly intact. IMPRESSION: 1.Nonspecific trace free fluid layering in the pelvis. 2.Mild postsurgical changes related to a recent cholecystectomy. 3.Other incidental/nonacute findings detailed above. Electronically signed by Juaquin Melendez 02/05/2017 6:22 PM
[2017-02-05] MEDS ORDERED: TUMS PO ONE (22:54)
[2017-02-06] MEDS: NORCO-5 PO PRN ×4 (01:10→15:24)
[2017-02-06] MEDS: ZOFRAN IV PRN ×2 (01:14→18:18)
[2017-02-06] MEDS: HUMALOG SUBQ SCH ×4 (06:35→20:46)
[2017-02-06 06:56] LABS: BASO% 0.2 % (0.0-0.8); EOS% 0.7 % (0.0-10.0); HEMOGLOBIN 9.3 g/dL (14.0-18.0); IMM GRAN# 0.04 X1000 (0.0-0.04); IMM GRAN% 0.3 % (0.0-0.5); LYMPH# 0.82 X1000 (1.2-3.4); LYMPH% 5.9 % (20.5-51.1); MANUAL DIFF NEEDED? YES; MCH 18.7 PG (27-31); MCHC 29.1 g/dL (33-37); MCV 64.3 FL (81-99); MONO# 0.93 X1000 (0.11-0.59); MONO% 6.7 % (1.7-9.3); MPV 10.8 FL (7.4-10.4); NEUT% 86.2 % (42.2-75.2); PLT 242 X1000 (130-400); RBC 4.98 XMIL (4.7-6.1)
[2017-02-06 07:18] LABS: CALCIUM 8.8 mg/dL (8.8-10.2); POTASSIUM 4.2 mmol/L (3.5-5.1)
[2017-02-06 07:33] LABS: BANDS 14 % (0-1); LYMPHS 4 % (21-51); MONO 2 % (1-9); NRBC 1 % (0-0)
[2017-02-06 07:34] LABS: HYPOCHROM 1+
[2017-02-06] MEDS: VENOFER IV SCH (09:25)
[2017-02-06] MEDS: BUMEX IV SCH (09:26)
[2017-02-06] MEDS: RANEXA PO SCH (09:26)
[2017-02-06] MEDS: COREG PO SCH ×2 (09:26→20:44)
[2017-02-06] MEDS: ALDACTONE PO SCH (09:26)
[2017-02-06] MEDS: PRAVACHOL PO SCH (09:26)
[2017-02-06] MEDS: ENTRESTO 24 MG-26 MG TABLET PO SCH ×2 (09:26→20:44)
[2017-02-06] MEDS: XARELTO PO SCH (09:26)
[2017-02-06] MEDS: COLACE PO SCH (09:27)
[2017-02-06] MEDS: MIRALAX PO SCH (09:27)
[2017-02-06] MEDS: LANOXIN PO SCH (09:28)
[2017-02-06] MEDS ORDERED: ALDACTONE PO SCH (11:13)
--- NOTE | 2017-02-06 14:17 | PROGRESS NOTE ---
DATE: 02/06/2017 SUBJECTIVE: Mr. Pereira reports he is feeling better today. He has some mild abdominal discomfort located around the uppermost laparoscopic incision related to his cholecystectomy previously. There is no drainage from the wound. He is tolerating oral intake. PHYSICAL EXAMINATION: Vital signs: Afebrile. Heart rates in the 70s. Blood pressure 122/51. His I's and O's continue to be negative. He is -7.4 L for the total of the hospitalization. Generally: No acute distress. Cardiovascular: He is in a regular rate and rhythm. He has no murmurs, no S3. He has no lower extremity edema. Chest: Exam is clear bilaterally. He has no increased work of breathing. Abdomen: Soft, nontender. He has no rebound, no guarding. No real tenderness around the area of his soreness. PERTINENT DATA: Sodium 131, potassium 4.2, BUN 31, creatinine 1.5. His proBNP is 562. His white count is 13.9, his hematocrit is 32. ASSESSMENT: 1. Systolic heart failure. 2. Abdominal discomfort. PLAN: We will continue to watch the abdominal discomfort for now. He does not seem to have any rebound or guarding. His white count is improving and he has no fever. His sodium is still low but his BUN and creatinine are elevated. I believe he is likely much closer to a euvolemic state. I have stopped his IV diuretics and placed him back on his oral diuretics. He has had an escalation in his medications, including change from valsartan to Entresto. I would continue him on these medications. In addition, carvedilol was added to his regimen. We will continue on this. Possibility for discharge in the morning. cc: Jim Murphy MD
--- NOTE | 2017-02-06 15:37 | PROGRESS NOTE ---
DATE: 02/06/2017 SUBJECTIVE: The patient is complaining of abdominal pain still. No fever, no chills. No nausea, vomiting, or diarrhea. When I saw him, he was sound asleep, but when I woke him up, he complained of having pain. OBJECTIVE: Vital signs: Blood pressure 122/51, pulse of 71, respirations 20, temperature 97.9 degrees, saturation of 96% on 2 L nasal cannula. General appearance: Well-developed, well- nourished, white male, in no acute distress. Lying down flat without any shortness of breath. HEENT: Anicteric sclerae. Clear conjunctivae. Neck: Supple. No JVD. No bruit. Cardiovascular: S1, S2, normal rate and rhythm. No murmur, rubs or gallops. Pulmonary: Clear to auscultation bilaterally. GI: Soft, nontender, nondistended. Normoactive bowel sounds. Musculoskeletal: No clubbing, cyanosis, or edema. LABORATORY: White count 13.93, hemoglobin 9.3, hematocrit 32, platelets of 242,000. Chemistry: Sodium 131, potassium 4.2, chloride 89, bicarb 30, BUN 31, creatinine 1.5, glucose of 185. ASSESSMENT AND PLAN: This is a 71-year-old white male admitted to the hospital for systolic heart failure. 1. Acute systolic heart failure. His creatinine function started climbing up. Decreased Bumex from twice a day to once a day and will decrease his spironolactone from 25 to 12.5 daily. Keep him on Coreg. The patient is on a Entresto. 2. History of atrial fibrillation. We will continue Coreg and Xarelto. 3. Abdominal pain. He had a gallbladder removed laparoscopically a week from yesterday. We will repeat a CAT scan because of abdominal pain. There is no leakage. There is no acute process. He has had bowel movement. We will continue pain control. Encourage ambulation. If his kidney function is stable tomorrow, the patient should be able to go home then. 4. Diabetes. We will continue sliding scale. 5. Code Status: The patient is a full code.
[2017-02-07 08:06] LABS: BASO% 0.1 % (0.0-0.8); EOS# 0.03 X1000 (0.0-0.7); EOS% 0.2 % (0.0-10.0); HEMATOCRIT 32.7 % (42.0-52.0); HEMOGLOBIN 9.6 g/dL (14.0-18.0); IMM GRAN# 0.03 X1000 (0.0-0.04); IMM GRAN% 0.2 % (0.0-0.5); LYMPH# 0.87 X1000 (1.2-3.4); LYMPH% 6.3 % (20.5-51.1); MANUAL DIFF NEEDED? YES; MCH 18.9 PG (27-31); MCHC 29.4 g/dL (33-37); MCV 64.2 FL (81-99); MONO# 0.92 X1000 (0.11-0.59); MONO% 6.7 % (1.7-9.3); NEUT% 86.5 % (42.2-75.2); PLT 221 X1000 (130-400); RBC 5.09 XMIL (4.7-6.1)
[2017-02-07] MEDS: XARELTO PO SCH (08:35)
[2017-02-07] MEDS: COREG PO SCH ×2 (08:35→21:05)
[2017-02-07] MEDS: PRAVACHOL PO SCH (08:35)
[2017-02-07] MEDS: ENTRESTO 24 MG-26 MG TABLET PO SCH ×2 (08:35→21:05)
[2017-02-07] MEDS: RANEXA PO SCH (08:36)
[2017-02-07] MEDS: LANOXIN PO SCH (08:36)
[2017-02-07] MEDS: VENOFER IV SCH (08:37)
[2017-02-07] MEDS: MIRALAX PO SCH (08:38)
[2017-02-07] MEDS: COLACE PO SCH ×2 (08:38→08:48)
[2017-02-07] MEDS: HUMALOG SUBQ SCH ×4 (08:39→21:05)
[2017-02-07 08:41] LABS: BANDS 16 % (0-1); LYMPHS 14 % (21-51); MONO 4 % (1-9)
[2017-02-07 08:42] LABS: HYPOCHROM 2+
[2017-02-07] MEDS ORDERED: ALDACTONE PO SCH (09:00)
[2017-02-07] MEDS ORDERED: BUMEX IV SCH ×2 (09:00)
[2017-02-07] MEDS ORDERED: LASIX PO SCH (09:00)
[2017-02-07 09:04] LABS: CALCIUM 8.5 mg/dL (8.8-10.2); POTASSIUM 4.1 mmol/L (3.5-5.1)
[2017-02-07] MEDS: ZOFRAN IV PRN (11:44)
--- NOTE | 2017-02-07 14:30 | PROGRESS NOTE ---
DATE: 02/07/2017 SUBJECTIVE: Today Mr. Hoyos refers to be feeling extremely weak, abdominal pain. Has had multiple, multiple episodes of bowel movement which is a pure diarrhea very offensive smell. OBJECTIVE: Vital signs: Blood pressure is 133/101 and pulse of 78, respirations 22, temperature is 97.7 degrees. General: Mr. Pereira 71-year-old male. He was in bed. Did not seem to be in a remarkable distress. HEENT: Mucosa slightly dry. Anicteric. Acyanotic. Neck: Supple. Chest: Good air entry bilateral. No crepitations. No rhonchi. Cardiovascular: Regular rate and rhythm. Abdomen: Soft, mildly tender all over. Extremities: No pedal edema. SLAB INSTALLER: Patient is awake, alert and oriented. LABORATORY DATA: WBC 13.81, hemoglobin is 9.6, platelet count of 221,000. Sodium is 133, potassium is 4.1, chloride is 87, bicarb is 30, BUN is 43, creatinine is 1.7. ASSESSMENT: 1. Systolic congestive heart failure exacerbation on presentation, this is stable. Patient is currently euvolemic and asymptomatic. 2. Abdominal discomfort. 3. Diarrhea. Patient had a gallbladder surgery. Unsure if the pathophysiology is due to bile salts or there is a underlying Clostridium difficile that we need to treat. I will therefore go ahead and send the stool for C. difficile and also culture and WBC. 4. Slight dehydration. The patient has sodium is slightly low with chloride and bicarb is relatively high, BUN is also high, creatinine is high all evidence that he is getting intravascularly depleted due to diuretic use. I have therefore gone ahead and withheld the diuretic therapy for today both the Lasix and the spironolactone. We will use the other medications for his heart. Encouraged the patient to drink a little bit more today. Will review the patient later on when we have more results and give further recommendations. cc: Keshawn Caceres MD [facility]
[2017-02-07] MEDS ORDERED: CALMOSEPTINE OINTMENT TOP PRN (19:22)
[2017-02-07] MEDS ORDERED: QUESTRAN PO SCH (21:30)
[2017-02-08] MEDS: HUMALOG SUBQ SCH ×4 (06:39→21:51)
[2017-02-08 06:45] LABS: BASO% 0.2 % (0.0-0.8); HEMATOCRIT 32.6 % (42.0-52.0); HEMOGLOBIN 9.8 g/dL (14.0-18.0); IMM GRAN# 0.14 X1000 (0.0-0.04); IMM GRAN% 1.1 % (0.0-0.5); LYMPH# 0.81 X1000 (1.2-3.4); LYMPH% 6.4 % (20.5-51.1); MANUAL DIFF NEEDED? YES; MCH 19.2 PG (27-31); MCHC 30.1 g/dL (33-37); MCV 63.9 FL (81-99); MONO# 1.26 X1000 (0.11-0.59); MONO% 9.9 % (1.7-9.3); NEUT% 82.4 % (42.2-75.2); PLT 223 X1000 (130-400)
[2017-02-08 07:17] LABS: BANDS 16 % (0-1); HYPOCHROM 2+; LYMPHS 10 % (21-51); MONO 8 % (1-9)
[2017-02-08 07:18] LABS: LARGE PLATELETS 1+
[2017-02-08 07:21] LABS: CALCIUM 8.5 mg/dL (8.8-10.2)
[2017-02-08] MEDS: NS 1,000 ML IV SCH (09:49)
[2017-02-08] MEDS: COREG PO SCH ×2 (09:49→21:50)
[2017-02-08] MEDS: ENTRESTO 24 MG-26 MG TABLET PO SCH (09:50)
[2017-02-08] MEDS: LANOXIN PO SCH (09:50)
[2017-02-08] MEDS: FLAGYL PO SCH ×3 (09:50→21:51)
[2017-02-08] MEDS: PRAVACHOL PO SCH (09:51)
[2017-02-08] MEDS: RANEXA PO SCH (09:51)
[2017-02-08] MEDS: LEVAQUIN PO SCH (09:51)
[2017-02-08] MEDS: XARELTO PO SCH (09:51)
[2017-02-08] MEDS: ZOFRAN IV PRN ×2 (09:52→14:56)
[2017-02-08] MEDS: NORCO-5 PO PRN ×2 (11:09→15:56)
--- NOTE | 2017-02-08 13:22 | Diag Imaging Result Doc PS360 ---
EXAM: US RENAL 2 (RETROPER) COMPLETE - 02/08/2017 HISTORY: mony/arf TECHNIQUE: Bilateral renal ultrasound COMPARISON: 01/28/2017 ultrasound abdomen FINDINGS: The right kidney measures 11.7 x 5.9 x 5.9 cm in size. The left kidney measures 12.6 x 6 x 5.9 cm in size. There is no renal mass or hydronephrosis identified. There is no renal stone identified. Images of the urinary bladder demonstrate no lesion. IMPRESSION: No visible renal abnormality. No hydronephrosis. Electronically signed by Judd Castellon 02/08/2017 1:19 PM
--- NOTE | 2017-02-08 13:28 | PROGRESS NOTE ---
DATE: 02/08/2017 SUBJECTIVE: Today Mr. Pereira referred to be doing relatively okay. He continues to have a significant amount of loose bowel movements. OBJECTIVE: Vital signs: Blood pressure is 122/87, pulse of 72, respiration is 19, temperature 97.5 degrees. General: Mr. Pereira is a 71-year-old male. He was in bed. He did not seem to be in any remarkable distress. HEENT: Mucosa is pink and dry. Anicteric. Acyanotic. Neck: Supple. Chest: Good air entry bilaterally. No crepitations. No rhonchi. Cardiovascular: Regular rate and rhythm. Abdomen: Soft, distended, mildly tender in the epigastrium and the periumbilical region. Extremities: No pedal edema. HUMAN SERVICE COORDINATOR: Patient is awake and alert. Follows commands. LABORATORY DATA: WBC is 12.69, hemoglobin 9.8, platelet count of 223,000. There are 16% of bands on peripheral smear. Chemistry is reviewed. Sodium is 129, potassium is 4.0, chloride is 85, bicarb is 25, creatinine is 3.5, and BUN is 73, glucose is 204, ferritin is 533. ASSESSMENT: 1. Systolic heart failure, in exacerbation at presentation. Now patient is looking a whole lot volume deplete. Will therefore discontinue the Lasix and the spironolactone. 2. Acute kidney injury. This is multifactorial. I think most of it is being driven by prerenal azotemia from over diureses (dehydration) and also from the diarrhea. Of note, patient also had an IV contrast study on 02/05/2017 which was abdomen and pelvis CT scan with contrast. This could also potentially be affecting the kidney function at this time. For now we will avoid any nephrotoxins. Will discontinue the diuretics. I will also withhold Entresto for now since the creatinine has continued to get worse after this was initiated. Will give the patient gentle IV fluids, continue with strict I's and O's, renal ultrasound, and urine studies. 3. Diarrhea with C. difficile negative. A CT scan of the abdomen and pelvis which was done on 02/05 showed trace of free fluid in the pelvis. Not sure if this is some form of ischemic enteritis. We started the patient on levofloxacin and metronidazole. This seems to be improving so will continue with that. The patient has also been started on Questran because of her his recent gallbladder surgery. 4. Abdominal discomfort secondary to underlying diarrhea. PLAN: So in general I think Mr. Pereira is relatively stable. CHF is now compensated. Patient is now volume depleted, having worsening of his kidney functions. We are going to avoid any nephrotoxins. Will have discontinued the diuretics. We are going to hydrate the patient a little bit today. He has been in a negative balance of [id number] and as I said, also had contrast so will follow very closely. cc: Keshawn Caceres MD
[2017-02-08] MEDS: QUESTRAN PO SCH (18:15)
[2017-02-09] MEDS: NS 1,000 ML IV SCH ×4 (01:25→17:29)
[2017-02-09] MEDS ORDERED: NARCAN IV ONE (05:42)
[2017-02-09] MEDS ORDERED: NARCAN ONE (05:46)
[2017-02-09] MEDS ORDERED: NS 500 ML IV ONE (05:48)
[2017-02-09 05:58] LABS: ALLEN TEST YES; BE -5.1 mmoll (-3.0-3.0); BLOOD TYPE ARTERIAL; DRAW SITE R RADIAL; METHB 0.8 % (0.0-1.5); O2(CT) 12.6 mL/dL (15.0-23.0); PCO2(98.6) 40 mmHg (35-45); PO2(98.6) 78 mmHg (60-100); SAMPLE BLOOD; SAO2 95.5 % (95.0-100.0); THB 9.5 g/dL (11.5-17.4); pH(98.6) 7.32 (7.35-7.45)
[2017-02-09 06:00] LABS: MODALITY CANNULA
[2017-02-09 06:36] LABS: URINE CULTURE NEEDED? NO; URINE SOURCE CATH
[2017-02-09 06:41] LABS: INR 2.09
[2017-02-09] MEDS: LEVOPHED 8 MG in D5 1/2 NS 250 ML IV SCH ×3 (06:41→20:21)
[2017-02-09 06:42] LABS: BILIRUBIN URINE NEGATIVE (NEGATIVE); BLOOD URINE NEGATIVE (NEGATIVE); COLOR ORANGE; GLUCOSE URINE TRACE mg/dL (NEGATIVE); LEUKOCYTES URINE NEGATIVE (NEGATIVE); NITRITE URINE NEGATIVE (NEGATIVE); PROTEIN URINE TRACE mg/dL (NEGATIVE); TURBIDITY URINE HAZY (CLEAR); UROBILINOGEN URINE NORMAL (NORMAL)
[2017-02-09 06:42] LABS: ALBUMIN 2.6 g/dL (3.5-5.0); CALCIUM 7.9 mg/dL (8.8-10.2); POTASSIUM 4.8 mmol/L (3.5-5.1); TOTAL BILIRUBIN 1.48 mg/dL (0.20-1.00); TOTAL PROTEIN 5.7 g/dL (6.3-8.3)
[2017-02-09 06:45] LABS: BASO% 0.3 % (0.0-0.8); EOS# 0.01 X1000 (0.0-0.7); EOS% 0.1 % (0.0-10.0); HEMATOCRIT 31.3 % (42.0-52.0); HEMOGLOBIN 9.7 g/dL (14.0-18.0); IMM GRAN# 0.06 X1000 (0.0-0.04); IMM GRAN% 0.4 % (0.0-0.5); LYMPH# 0.76 X1000 (1.2-3.4); LYMPH% 4.9 % (20.5-51.1); MANUAL DIFF NEEDED? YES; MCH 19.6 PG (27-31); MCV 63.2 FL (81-99); MONO# 1.94 X1000 (0.11-0.59); MONO% 12.4 % (1.7-9.3); NEUT% 81.9 % (42.2-75.2); PLT 248 X1000 (130-400); RBC 4.95 XMIL (4.7-6.1)
[2017-02-09 06:45] LABS: PTT 53.4 Seconds (22.0-36.0)
[2017-02-09 06:46] LABS: UR EPITHELIAL CELLS <10 /HPF (<10); URINE BACTERIA NEGATIVE /HPF; URINE MICRO REVIEW NEEDED? YES; URINE RBC <10 /HPF (<10); URINE WBC <10 /HPF (<10)
[2017-02-09] MEDS: QUESTRAN PO SCH ×2 (06:46→18:05)
[2017-02-09 06:53] LABS: UR CREAT RANDOM 122.2 mg/dL (14-26)
--- NOTE | 2017-02-09 07:03 | EKG Report ---
Test Performed on : 02/09/2017 06:18:55 AM Test Reason : AMS Blood Pressure : / mmHG Vent. Rate : 076 BPM Atrial Rate : 076 BPM P-R Int : 134 ms QRS Dur : 148 ms QT Int : 466 ms P-R-T Axes : -23 -46 090 degrees QTc Int : 524 ms Normal sinus rhythm. Left axis deviation Left bundle branch block Abnormal ECG When compared with ECG of 28-JAN-2017 15:33, aberrant conduction. is no longer present Left bundle branch block is now present Confirmed by Lang ARAUJO, Chuck Josue ([id number]) on 02/13/2017 12:36:43 PM
[2017-02-09] MEDS: HUMALOG SUBQ SCH ×4 (07:05→21:57)
[2017-02-09 07:08] LABS: URINE CASTS GRANULAR PRESENT
--- NOTE | 2017-02-09 07:25 | Diag Imaging Result Doc PS360 ---
CHEST-PORTABLE - 02/09/2017 INDICATION: Tachypnea, AMS TECHNIQUE: COMPARISON: 02/02/2017 FINDINGS: Stable right-sided pacemaker. There is stable significant cardiomegaly. Lung volumes are much lower. There is central vascular crowding. No focal infiltrates. IMPRESSION: Much lower lung volumes. Otherwise no change from prior. Electronically signed by Rio Mathew 02/09/2017 7:22 AM
[2017-02-09 07:35] LABS: BANDS 19 % (0-1); LYMPHS 4 % (21-51); MONO 9 % (1-9)
--- NOTE | 2017-02-09 07:59 | Diag Imaging Result Doc PS360 ---
EXAM: HEAD W/O CONTRAST HISTORY: unresponsive TECHNIQUE: CT of the head without contrast with dose reduction (clarity.) COMMENT: There is minimal patchy ill-defined white matter lucency particularly in the periventricular white matter around the atria of the lateral ventricles. There are some calcification in the vertebral and internal carotid arteries. There is no evidence of bleed or mass effect. No abnormal extra-axial fluid collections are present and there is no evidence of hydrocephalus. There is congenital incomplete fusion of the posterior arch of C1. The visualized paranasal sinuses are clear. IMPRESSION: No acute intracranial disease. Chronic microvascular changes. Electronically signed by Darwin Dang 02/09/2017 7:57 AM
[2017-02-09] MEDS: COREG PO SCH ×2 (09:07→21:56)
[2017-02-09] MEDS: RANEXA PO SCH (09:08)
[2017-02-09] MEDS: FLAGYL PO SCH (09:08)
[2017-02-09] MEDS: PRAVACHOL PO SCH (09:08)
[2017-02-09] MEDS: LANOXIN PO SCH (09:08)
[2017-02-09] MEDS: LEVAQUIN PO SCH (09:08)
[2017-02-09] MEDS: XARELTO PO SCH (09:09)
[2017-02-09 10:29] LABS: HEMATOCRIT 31.1 % (42.0-52.0); HEMOGLOBIN 9.6 g/dL (14.0-18.0)
[2017-02-09] MEDS: PROTONIX IV SCH ×2 (10:41→23:30)
[2017-02-09] MEDS: LEVAQUIN 250 MG/D5W 250 MG/50 ML IVPB IV SCH (10:41)
[2017-02-09] MEDS: SODIUM CHLORIDE 0.9% INJ SCH (10:41)
--- NOTE | 2017-02-09 11:07 | PROGRESS NOTE ---
DATE: 02/09/2017 SUBJECTIVE: Today Mr. Romain Pereira is here in the ICU. He was relatively fine when I saw him yesterday, however overnight or early this morning I was told that he was found unresponsive with normal vitals and breathing okay, but would not respond even to very, very painful stimulation. The patient was sent for CT scan of the brain which was unremarkable. OBJECTIVE: Vital Signs: Now blood pressure is 102/50, pulse of 74, respirations 21 and temperature is 97.4 degrees. General: Mr. Pereira is a 71-year-old male. He is in bed, does not seem to be in any remarkable distress. HEENT: Mucosa is pink and moist. Anicteric. Acyanotic. Neck: Supple. Chest: Good air entry bilateral. A few bibasilar crackles. Cardiovascular: Regular rate and rhythm. There is a generator pocket on the right anterior chest wall. Abdomen: Soft. According to him, it is slightly tender. 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 He is arousable with painful stimulation, but he easily goes back to sleep. IMAGING: A chest x-ray, which was done this morning, shows much lower lung volumes, otherwise no change. LAB WORK: 1. WBC is 15.65, hemoglobin is 9.7, platelet count 248. There are 19% bands on the peripheral smear. 2. Chemistry: Sodium is 129, potassium is 4.8, chloride is 84, bicarbonate is 21, creatinine is 5.3, and BUN is 104. Creatinine kinase is 53. 3. Troponin is slightly elevated, which I think is due to poor renal perfusion. 4. Intake/output: The patient had a total of 468 urine output yesterday. Today , she has had only 480 charted. ASSESSMENT: 1. Altered mental status. Etiology is apparently unclear. A CT scan is unremarkable. I think this is likely due to metabolic encephalopathy from uremic etiology. We will consult nephrology to evaluate the patient for possible renal replacement. Will also do UDS 2. Acute kidney injury. The ultrasound of the kidneys was unremarkable. So far , urine studies have shown that the fraction excretion of sodium is 0.6 and the fraction excretion of nitrogen is 24. Both of them are consistent with prerenal disease. However, the urinalysis also shows a granular cast which will make him it acute tubular necrosis, so this is prerenal acute kidney failure that has been complicated with acute tubular necrosis. With elevated BUN and altered mental status. I think patient will need renal replacement. We will consult nephrology to give us some recommendations. Of note, patient has had multiple doses in the past of Lasix, metolazone, bumetanide, Aldactone, and I think these have all contributed to the acute kidney injury. The patient also had a CT scan of the abdomen with contrast on 02/05/2017. So, she could as well be going through number contrast-induced nephropathy. The patient was having a lot of diarrhea, so I think it is multiple etiologies that have all come together to create this acute kidney injury, which is worsening and needs to be addressed. 3. Gastrointestinal bleed. I think this probably is also contributing to the high level of BUN. We will put the patient on twice daily proton pump inhibitor and keep him on nothing by mouth. Repeat the hemoglobin and hematocrit, do a serial hemoglobin and hematocrit. So far, the hemoglobin has not dropped significantly, so we will do a serial hemoglobin/ hematocrit. If there is a significant drop, we will consult gastroenterology for endoscopies. 4. Congestive heart failure in exacerbation on presentation, resolved. 5. Abdominal discomfort with some tenderness. I think this is due to the underlying diarrhea. However with the elevated white count and the bands on the peripheral smear suspicious if there is anything there, so go ahead and repeat a CT scan of the abdomen without contrast. 6. Hypotensive likely septic. source either lungs or abdomen. Will order CT scan chest,abd/pelvic. Add Zyvox to cover MRSA. Change Levo to IV. Critical time spent 45 minutes cc: MD JIM Hernandez
[2017-02-09 11:35] LABS: UR AMPHETAMINES QUAL NONE DETECTED (NONE DETECT); UR BARBITUATES QUAL NONE DETECTED (NONE DETECT); UR BENZODIAZEPIN QUAL NONE DETECTED (NONE DETECT); UR CANNABINOIDS QUAL NONE DETECTED (NONE DETECT); UR COCAINE QUAL NONE DETECTED (NONE DETECT); UR METHADONE QUAL NONE DETECTED (NONE DETECT); UR OPIATES QUAL PRESUMPTIVE POSITIVE (NONE DETECT); UR OXYCODONE QUAL NONE DETECTED (NONE DETECT); UR PCP QUAL NONE DETECTED (NONE DETECT)
[2017-02-09 12:33] LABS: UR SODIUM < 10 mmoll
[2017-02-09 12:37] LABS: UR PROT RANDOM 241.1 mg/dL
--- NOTE | 2017-02-09 12:37 | Diag Imaging Result Doc PS360 ---
EXAM: THORAX/ABDOMEN/PELVIS W/O CONT HISTORY: hypotension/ septic TECHNIQUE: CT of the chest without contrast; CT urogram without contrast. COMMENT: The esophagus is stent distended with fluid. There is volume loss and some opacification with air bronchograms in the left lower lobe posteriorly. There is also some apparent atelectasis in the inferior lingula. Minimal subsegmental atelectasis is present in the right lower lobe. There is been previous sternotomy. There is a pacemaker on the right. CT urogram without contrast there is fluid throughout the stomach. There is fluid in multiple small bowel loops which are slightly distended proximally. There is a gradual tapering into the ileum. There is edema in the mesenteric fat particularly in the mid and left abdomen. There is extensive atherosclerotic calcification in the abdominal aorta, celiac and particularly in the proximal superior mesenteric arteries. The Superior mesenteric artery was apparently occluded at the time of previous contrast study of 02/05/2017. There is slight dilatation of the infrarenal abdominal aorta to a maximum dimension of 2.9 cm. There is a Rodriguez catheter in the bladder. There is free fluid in the pelvis. The regional skeleton is stable in appearance. There is some patchy hyperdensity in the renal parenchyma. This may be related to nephrocalcinosis. There are extensive renal arterial calcifications. IMPRESSION: 1. Gastroesophageal reflux. 2. Left lower lobe pneumonia/atelectasis. 3. Ileus and mesenteric edema. Minimal ascites. 4. 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 In retrospect, this was apparently occluded on 02/05/2017, although the duration of the occlusion is not clear as there are no previous studies to that. Nevertheless, the likelihood of mesenteric ischemia should be considered. The findings were discussed with Keshawn Caceres MD at 02/09/2017 12:30 PM. Electronically signed by Darwin Dang 02/09/2017 12:35 PM
[2017-02-09] MEDS: ZYVOX 600 MG/D5W 600 MG/300 ML IVPB IV SCH (13:46)
[2017-02-09 16:31] LABS: HEMATOCRIT 30.4 % (42.0-52.0); HEMOGLOBIN 9.3 g/dL (14.0-18.0)
--- NOTE | 2017-02-09 17:32 | CONSULTATION ---
DATE OF CONSULTATION: 02/09/2017 REASON FOR ADMISSION: Increased work of breathing with swelling associated with congestive heart failure. REASON FOR CONSULTATION: Acute kidney injury on chronic kidney disease stage 2 with known baseline creatinine of 1 prior to his initial hospitalization. CONSULTING PHYSICIAN: Keshawn Caceres MD. HISTORY OF PRESENT ILLNESS: Mr. Pereira is a 71-year-old white male who has a known history of congestive heart failure and is followed by Cardiology. It is noted in the chart that his last ejection fraction prior to his hospitalization was known at 24% in September 2016. Patient has a pacemaker implant which is possibly an AICD. He has a history also of diabetes mellitus type 2, hypertension and coronary artery disease status post 7 total bypasses under 2 different surgeries with cardiac stent placements on the . The patient was seen by Dr. Villegas earlier on the day of his admission and was sent to [facility] for diuretic therapy and evaluation. Patient was started on diuretic therapy for his hypertension and swelling until yesterday at which time his Lasix, metolazone and bumetanide along with Aldactone have been contributing to elevation of his acute kidney injury. His creatinine now is elevated at 5.3 up from 3.5 yesterday. His BUN is 104 up from 73. His diuretics are currently on hold. He is receiving IV fluid of normal saline at 100 mL an hour and is also receiving Levophed for blood pressure support. Patient had been doing well on the floor. Unfortunately during the night on a.m. check he was found unresponsive. He was taken down for a CT of the brain without contrast. It was found to be unremarkable. Due to his altered mental status he was brought to ICU and is currently on pressor support. It is felt that his congestive heart failure has resolved. It has been documented that he has developed sepsis with the source of either his lungs or his abdomen and is now on Levophed, and antibiotics of Levaquin on Zyvox both renally dosed. Patient opens his eyes to verbal stimuli. He is unable tell you if he is having any pain though it is noted he is sensitive upon examination to his mid abdominal area. During this period of time patient has developed chronic diarrhea and is noted to have GI bleed with low hemoglobin. GI has been consulted for this. PAST MEDICAL HISTORY: Notable for diabetes mellitus type 2, hypertension, congestive heart failure with ejection fraction now noted at 24% from September 2016, hyperlipidemia, history of coronary artery disease. He is status post 2 coronary artery bypass grafts with stents, and peripheral vascular disease. PAST SURGICAL HISTORY: Appendectomy, right femoral bypass of the lower extremity, left stenting of the lower extremities, cholecystectomy, pacemaker implant, along with CABG x2 and stents x2. FAMILY HISTORY: Father had diabetes and coronary artery disease. He from an MA at the age of 68. Brother has myocardial infarction, also at 68. SOCIAL HISTORY: His daughter states that he lives in [place]. He lives alone. 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 He moves about at his leisure. She states that he has become tired easily and has increased work of breathing upon exertion. He uses smokeless tobacco in the form of dip and continues to smoke [id number]. mostly 2 in the morning and 1 after dinner. His daughter states that there is no illicit drug use in the past. He has a history of alcohol use but she states that he does not have any currently. RECENT LIST OF ALLERGIES: Cimetidine, codeine which nauseates the patient. CURRENT HOME MEDICATIONS: Pravastatin, valsartan, Lantus insulin, ProAir inhaler, Ranexa, Lasix, Xarelto, Cartia XT. Patient currently has been on Pravachol, Ranexa, Xarelto, Ventolin inhaler, Valium, Coreg, Entresto, Lanoxin, [place], Aldactone, Lasix, Questran. He is currently on Levophed and a normal saline drip along with Protonix, Levaquin and Zyvox IV renally dosed. REVIEW OF SYSTEMS: Unable to obtain per patient. These have been obtained from the chart and from his daughter at the bedside. VITAL SIGNS: His most recent vital signs are temperature 97.2 degrees, blood pressure is 93/51, heart rate 65, respirations 22, 4 L nasal cannula with last recorded saturation 97%. He has had 1380 in. He has had 450 out. He is 1.5 L positive in the last 72 hours. LABS: This a.m. sodium 129, potassium 4.8, chloride 84, CO2 21, BUN 104, creatinine 5.3, glucose 148, calcium 7.9, albumin 2.6. His ammonia level is noted at 66. Troponin is elevated at 0.098. White count 15.63, hemoglobin 9.7, hematocrit 31.3 with a platelet count of 248, 000. Ferritin is 533. Iron is noted at 13. Percent saturation is 3%. Initial hemoglobin of 7.4 and 7.9. There is no indication that he has received any blood during this period of time. Coagulation shows a PT of 23 with an INR of 2.09, a PTT of 53.4. Urinalysis shows urine completed this a.m. with trace proteinuria, hazy, orange in appearance, granular casts. Patient has a fractionated urea score of 24.48 indicating prerenal. Urine eosinophils are negative. Patient had a negative urine drug screen except positive opiates. He had chest x-ray imaging this morning indicating lower lung volumes decreased. It is indicated that he also had a CT with contrast on 02/05/2017 prior to his hospitalization. He had a CT of the thorax, abdomen and pelvis without contrast indicating left lower lobe pneumonia with an ileus with mesenteric ascites. Renal ultrasound completed yesterday shows right kidney measuring 11.7, left measuring 12.6. CT of the head shows no acute disease completed this a.m. PHYSICAL EXAMINATION: General: This is a 71-year-old white male. He is currently resting in bed. Head of the bed is elevated. He is in no acute distress. He appears chronically ill. Skin: Warm and dry. HEENT: Normocephalic, atraumatic. Conjunctivae is pink. Mucous membranes are moist. Neck: Supple. Trachea midline. No JVD. Cardiovascular: He has regular rate and rhythm. He has a pacemaker pocket to the right anterior chest wall. No murmur or gallop appreciated. Lungs: Diminished inspiratory effort. Clear to auscultation anterior. Faint expiratory wheeze. Remains on O2 with equal excursion. Abdomen: Soft, slight tenderness in mid abdominal quadrant right above the pelvic area. Genitourinary: Rodriguez catheter remains in place. Adequate urine out is noted. Integumentary: There are no rashes or lesions evident. Neurological: Patient opens his eyes to verbal. Otherwise he does not make any noise except to moan upon abdominal palpation. ASSESSMENT AND PLAN: 1. Acute kidney injury. This appears to be multifactorial. The patient is volume depleted with hypotension. This is secondary to diuretic therapy, and possible GI bleed. He remains hypotensive. He has Levophed on for support along with normal saline at 100 mL an hour. His renal ultrasound is essentially negative. He continues with diarrhea stools. He has a low fractionated urea score with negative urine eosinophils but he does have positive granular casts. It may be a combination of prerenal with intrarenal. We agree with holding his diuretics. He is not on his Entresto. This has been stopped. He remains on his Ranexa. There is no indication for intervention at this time. We will continue to monitor with his I's and O's, monitor his labs and hold his nephrotoxic medications. 2. Electrolytes. This remains stable with mild hyponatremia. Again his Aldactone has been held with hopes that we will see slight improvement with his normal saline and Aldactone stopped by the a.m. labs. 3. Acidosis. Metabolic acidosis is noted. We will order a lactate. Again this may all be contributing to his diuretic therapy and his dehydration with possible indications of sepsis. No indications for intervention at this time. We will monitor. 4. Anemia. This does remain stable over the last 3 days. He continues with iron deficiency. It may be indicated that we need to start him on replacement therapy for possible iron infusion. GI has been consulted. We will defer to the GI team. 5. Altered mental status. Patient has had an elevated BUN and creatinine as of yesterday. He received [place] during the night. We will hold his sedatives at this time. This may be related to also BUN and creatinine elevation with encephalopathy. 6. Admission for congestive heart failure. It appears that this is resolved. All of his diuretics are on hold along with his DONTA and ARB combination with continuing to be followed by Cardiology. I would like to thank you for allowing us to follow with this patient. Dictated by YOHAN Lawrence for Alan Lopez MD cc: YOHAN Lawrence MD [facility]
[2017-02-09 22:03] LABS: HEMATOCRIT 30.1 % (42.0-52.0); HEMOGLOBIN 9.4 g/dL (14.0-18.0)
[2017-02-09] MEDS ORDERED: VASELINE TOP PRN (23:23)
[2017-02-10] MEDS: ZYVOX 600 MG/D5W 600 MG/300 ML IVPB IV SCH ×2 (01:17→13:11)
[2017-02-10] MEDS: LEVOPHED 8 MG in D5 1/2 NS 250 ML IV SCH ×3 (03:49→20:19)
[2017-02-10] MEDS: NS 1,000 ML IV SCH ×3 (03:49→22:06)
[2017-02-10 04:32] LABS: ALLEN TEST YES; BE -8.4 mmoll (-3.0-3.0); BLOOD TYPE ARTERIAL; DRAW SITE R RADIAL; PCO2(98.6) 39 mmHg (35-45); PO2(98.6) 91 mmHg (60-100); SAMPLE BLOOD; pH(98.6) 7.27 (7.35-7.45)
[2017-02-10 04:34] LABS: MODALITY CANNULA
[2017-02-10 05:15] LABS: INR 1.67; PROTIME 18.1 Seconds (9.2-11.7)
[2017-02-10 05:39] LABS: BASO% 0.2 % (0.0-0.8); EOS# 0.01 X1000 (0.0-0.7); EOS% 0.1 % (0.0-10.0); HEMATOCRIT 29.7 % (42.0-52.0); HEMOGLOBIN 9.2 g/dL (14.0-18.0); IMM GRAN# 0.08 X1000 (0.0-0.04); IMM GRAN% 0.4 % (0.0-0.5); LYMPH# 0.57 X1000 (1.2-3.4); LYMPH% 3.1 % (20.5-51.1); MANUAL DIFF NEEDED? YES; MCH 19.3 PG (27-31); MCV 62.4 FL (81-99); MONO# 1.35 X1000 (0.11-0.59); MONO% 7.4 % (1.7-9.3); NEUT% 88.8 % (42.2-75.2); PLT 256 X1000 (130-400); RBC 4.76 XMIL (4.7-6.1)
[2017-02-10 05:57] LABS: ALBUMIN 2.1 g/dL (3.5-5.0); CALCIUM 6.9 mg/dL (8.8-10.2); POTASSIUM 4.3 mmol/L (3.5-5.1)
[2017-02-10] MEDS: QUESTRAN PO SCH ×2 (06:26→18:54)
[2017-02-10] MEDS: HUMALOG SUBQ SCH ×4 (06:26→20:17)
[2017-02-10 07:30] LABS: BANDS 10 % (0-1); LYMPHS 2 % (21-51); MONO 6 % (1-9); POLYCHROM 1+
[2017-02-10] MEDS: COREG PO SCH ×2 (08:08→20:17)
[2017-02-10] MEDS: PRAVACHOL PO SCH (08:08)
[2017-02-10] MEDS: RANEXA PO SCH (08:08)
[2017-02-10] MEDS: LANOXIN PO SCH (08:08)
[2017-02-10] MEDS: VENTOLIN HFA INH PRN (08:46)
[2017-02-10] MEDS ORDERED: TIGHT: 0.2 ML/HR MISC PRN (08:47)
[2017-02-10] MEDS ORDERED: HEPARIN IV PRN (08:47)
[2017-02-10] MEDS ORDERED: NS 2,000 ML MISC PRN (08:47)
--- NOTE | 2017-02-10 09:09 | PROGRESS NOTE ---
DATE: 02/10/2017 SUBJECTIVE: Patient is definitely more awake, alert in comparing with yesterday as per nursing staff. No fever noted. Complaining of mild shortness of breath, a little bit worse in comparing with yesterday. OBJECTIVE: Vital Signs: Temperature 97.3 degrees, heart rate 66, respiratory rate 17, blood pressure 99/51, O2 saturation 97% on 4 L nasal cannula. General: This is a chronically ill- looking, 71-year-old male, lying in bed, in no acute distress. HEENT: Head is normocephalic, atraumatic. Anicteric sclerae and pale conjunctivae. Mucous membranes dry. Pupils equal, round, reactive to light and accommodation. Neck: Supple. No JVD noted. No carotid bruits. No lymphadenopathy. No thyromegaly. Cardiovascular: A few bibasilar crackles and patient is not using any accessory muscles or having work of breathing. Abdomen: Soft, a little bit distended and general tenderness to palpation. Bowel sounds present. No organomegaly. Extremities: No clubbing, cyanosis, or edema. Peripheral pulses present in both legs. Neurological: Patient alert and oriented x3. Moves 4 extremities. Cranial nerves 2-12 grossly normal. LABORATORY DATA: White cell count 18.33, hemoglobin 9.2, hematocrit 39.7, platelets 256,000. ABG shows pH 7.27, pCO2 39, PO2 91, sodium 131, potassium 4.3, chloride 99, bicarbonate 18, BUN 137, creatinine 6.0, calcium 6.9. ASSESSMENT AND PLAN: 1. Altered mental status. That condition is resolved. We have checked a CT of the head yesterday for this episode but it was negative. At this time, the patient's mental status is back to normal. 2. Acute kidney injury. The patient had acute tubular necrosis that is multifactorial, so Nephrology has been consulted and because there is worsening elevation of BUN and patient has become oliguric, Nephrology is planning to start dialysis. They are going to talk with the family. 3. Gastrointestinal bleeding. Because we suspected gastrointestinal bleeding, we have started monitoring hemoglobin and hematocrit today, the hemoglobin is stable so far. We will keep an eye on this patient. 4. Congestive heart failure exacerbation, resolved. 5. Abdominal discomfort. Yesterday, CT of the chest, abdomen and pelvis did not show any gross abnormality. Today, the abdomen is paper machine tender. At this point, we are going to keep an eye on him. 6. Septic shock. Because of the lower lobe pneumonia, we are going to continue with levofloxacin and Zyvox. cc: Manny Sanchez MD
[2017-02-10] MEDS: PROTONIX IV SCH ×2 (10:27→22:06)
[2017-02-10] MEDS: LEVAQUIN 250 MG/D5W 250 MG/50 ML IVPB IV SCH (10:27)
[2017-02-10] MEDS: SODIUM CHLORIDE 0.9% INJ SCH ×2 (10:27→22:06)
--- NOTE | 2017-02-10 10:27 | CONSULTATION ---
DATE OF CONSULTATION: 02/10/2017 REFERRING PHYSICIAN: Dr. Alan Lopez. PANEL INSTALLER: Dr. Villegas. PRIMARY CARE PROVIDER: Dr. Gerry Wilson. HISTORY OF PRESENT ILLNESS: This is a 71-year-old with history of congestive heart failure. Ejection fraction around 24%. He has other comorbidities: Diabetes mellitus type 2, hypertension, coronary artery disease status post 7 total bypasses with 2 different surgeries, cardiac stent placement. He is known to have peripheral vascular disease and has had 2 peripheral bypasses which I believe left femoral bypass and stenting of the right leg. He presented with increasing shortness of breath. PAST MEDICAL HISTORY: To review past medical history again: 1. Congestive heart failure. Ejection fracture around 24%. This was last tested in 2017. 2. Hypertension. 3. Hyperlipidemia. 4. Coronary artery disease, status post 2 coronary artery bypass grafts or 2 different surgeries, a total of 7 grafts with 2 cardiac stents placed. 5. Peripheral vascular disease. SURGICAL HISTORY: 1. Status post appendectomy. 2. Right femoral bypass, left lower extremity. 3. Left stenting of lower extremity. 4. Cholecystectomy. 5. Pacemaker implantation. PHYSICAL EXAMINATION: Vital Signs: On exam today: Temp 97.3 degrees, pulse 66, respirations 16, blood pressure 99/50. Lungs: Clear in all lung burgos. Cardiovascular exam: Regular rhythm and rate without murmur or S3. Abdomen: Soft. Skin: Warm and dry. Genitourinary: Urine output was over 5 L, almost 6 L. LABS: White count is bumped up 18,230, hematocrit 29, platelet count 256,000. Electrolytes: Sodium 131, potassium 4.3, chloride 89, bicarbonate 18, BUN 137, creatinine 6.0, blood sugar 220, 212, 218. X-RAYS: He had a CT of chest, abdomen and pelvis yesterday. He had he had some gastroesophageal reflux. Left lower lobe pneumonia with atelectasis, ileus and mesenteric edema. Severe atherosclerotic changes, particularly in the superior mesenteric artery. In retrospect this was apparently occluded on 02/05/2017, although duration of occlusion was not clear. Nevertheless, likely the mesenteric ischemia should be considered. ASSESSMENT AND PLAN: Acute kidney injury. Appears to be multifactorial. Patient is volume depleted with hypotension. He was getting diuretic therapy, and the possibility of gastrointestinal bleeding remains borderline hypotensive or hypotensive with Levophed for support. He is getting normal saline at 100 mL an hour. Ultrasound was essentially unremarkable. He continues to have loose stools. His fractionated urea score was negative with negative urine eosinophils, but does have positive granular cast. Suspect this may be a combination of prerenal and infrarenal and acute tubular necrosis. He is not on his Entresto and he remains on Ranexa. Will continue to watch his intake/output, but I suspect he will need some dialysis to help. Electrolytes: Stable mild hyponatremia. Metabolic acidosis which is mild and anemia stable. His mental status apparently has improved, so we will pursue Vas-Cath and see if we can help his renal function. cc: Jacob Umanzor MD
[2017-02-10] MEDS ORDERED: HEPARIN ONE (11:44)
[2017-02-10] MEDS ORDERED: NS 2,000 ML ONE (11:44)
[2017-02-10 14:00] LABS: ALBUMIN 1.9 g/dL (3.5-5.0); DIRECT BILIRUBIN 0.9 mg/dL (0.00-0.20); TOTAL BILIRUBIN 1.47 mg/dL (0.20-1.00); TOTAL PROTEIN 5.3 g/dL (6.3-8.3)
--- NOTE | 2017-02-10 15:50 | PROGRESS NOTE ---
DATE: 02/10/2017 TIME SEEN: 0805. SUBJECTIVE: Mr. Pereira is awake. He is talking to his family. States that he is becoming some increased work of breathing and this is more than likely associated with his congestive heart failure. Patient's labs have indicated that he is worsening on his acute kidney injury. OBJECTIVE: Vital Signs: Temperature 97.3 degrees, blood pressure 99/51, heart rate 66, respirations 17. He is on 4 L nasal cannula. Last recorded saturation 97%. He has had 3890 in. 235 out per Rodriguez catheter. General: This is a 71-year-old white male. He is currently resting in bed. He is semi-prone. He remains on oxygen. He is in no acute distress though he appears chronically ill. HEENT: Normocephalic, atraumatic. Conjunctivae pale. He has EPHRAIM. Mucous membranes are moist. Neck: Supple. Trachea midline. He has positive JVD. Cardiovascular: He is regular rate and rhythm. He has a pacemaker pocket to the right anterior chest wall. He has no murmur or gallop appreciable today. Lungs: He has inspiratory and expiratory wheezes. No crackles or rhonchi noted. He continues on O2 equal excursion. Abdomen: Continues with slight mild mid abdominal tenderness secondary to chronic diarrhea. Hypo bowel sounds are present. Genitourinary: Rodriguez catheter remains in place with diminished urine out compared to yesterday and the day before. Integumentary: No rashes or lesions evident. Neurological: Patient is awake and he is alert. He is cooperative. He is able to assist with exam. LABORATORY: Sodium 131, potassium 4.3, chloride is 89, CO2 18, BUN 137, creatinine 6, glucose 212. Anion gap 24. Calcium 6.9, phosphorus 7.6, albumin 2.1. White count 18.23, hemoglobin 9.2, hematocrit 29.7, with a platelet count of 256,000. His ProTime is 18.1, his INR is 1.67. ABGs this a.m., pH 7.27, CO2 39, PO2 91, bicarb 18.3. Patient has a lactate of 1.7 which is improved from 3 yesterday. He remains on 4 L nasal cannula. ASSESSMENT AND PLAN: 1. Acute kidney injury. The patient's BUN and creatinine have continued to climb over the last 24-48 hours. His BUN is now 137 with a creatinine of 6. His urine output has dropped off to only 235 mL. He now has complaints of increased work of breathing with a history of congestive heart failure. He is now on 4 L nasal cannula, up from 2 L yesterday. Secondary to all of these findings, I have discussed with Dr. Lopez in regards with placement of Vas- Cath and starting dialysis today. We will proceed with placement on a 2 K bath. He is to dialyze for 2.5 hours. We will attempt to 2 3 L of ultrafiltration as tolerated. Plan for dialysis over the next 3 days to assist with his fluid volume and acute kidney injury. 2. Sepsis. Patient continues with elevated WBCs of 18. He continues on a Levophed drip. He is on renal-dosed antibiotics. 3. Electrolytes. These are stable with a mild hyponatremia. We will plan for correction on dialysis. 4. Acidosis with an expanding anion gap acidosis. Again, hopefully with correction on dialysis at that time. 5. Anemia. This does remain stable. 6. Altered mental status. This has improved from yesterday even though his BUN and creatinine continue to elevate, though he has not been given any sedatives in the last 24 hours. 7. Congestive heart failure. Patient now has increased work of breathing. He continues to be followed by Cardiology. We will plan to assist with dialysis and fluid volume removal on dialysis when started. PLAN: We will request Surgery, and I believe that Dr. Shepherd is on-call for placement of Vas-Cath and we will plan to start dialysis today as mentioned above with dialysis the next three days to assist with patient's renal and pulmonary status. I would like to thank you for allowing us to follow with this patient. Dictated by YOHAN Lawrence for Alan Lopez MD cc: YOHAN Lawrence MD [facility]
--- NOTE | 2017-02-10 21:38 | OPERATIVE NOTE ---
PROCEDURE DATE: 02/10/2017 PREOPERATIVE DIAGNOSES: 1. End-stage renal disease with acute kidney injury. 2. Sepsis. POSTOPERATIVE DIAGNOSIS: 1. End-stage renal disease with acute kidney injury. 2. Sepsis. PROCEDURES PERFORMED: Right femoral vein ultrasound-guided Vas-Cath placement. ANESTHESIA: Local. ESTIMATED BLOOD LOSS: 10 mL. COMPLICATIONS: None. INDICATIONS: A 71-year-old male who recently had a laparoscopic cholecystectomy. There was some question of chronic mesenteric ischemia with SMA occlusion, but the celiac and ERIC are open. Dr. Purvis is following him. He had worsening of his renal function with volume overload and metabolic acidosis. Dr. Lopez has been following and plans to start dialysis and needs access. OPERATIVE FINDING: Ultrasound exam of the right groin shows some postsurgical changes here related to previous vascular surgery, but otherwise normal vascular anatomy with a compressible femoral vein. No evidence of intraluminal thrombus. OPERATIVE NOTE: Risks, benefits, alternatives discussed with the patient and his sister. The patient gives consent to procedure. Right groin was prepped with chlorhexidine solution and draped in usual fashion. Focused ultrasound performed with above findings. After this, we infiltrated local anesthetic. Using a seeker needle, we were able to access the femoral vein on the first pass. Dark nonpulsatile venous blood was noted and a wire threaded easily into the femoral vein without resistance. We confirmed that this coursed directly into the vein with ultrasound. We made a skin mary jane and attempted to dilate the tract. It would dilate easily until about 3 cm; however, we met some resistance. Despite the wire moving freely, it required substantial resistance to pass the dilator which would not go. As such, we removed the wire, held pressure, re-ultrasounded the groin and attempted a different angle. Again, accessed the vein on first pass. Dark, nonpulsatile venous blood was noted. The wire again threaded easily and confirmed that it coursed directly into the vein. This it was able to dilate with moderate resistance related to scar tissue as once it passed through this it was easy. We held pressure and attempted to thread a pre-flushed dialysis catheter; however, this would not tract along the wire. We held pressure and changed this for a smaller caliber double- lumen Vas-Cath and were able to pass this without resistant into the vein. Both ports withdrew venous blood and flushed without difficulty. We secured the line with a nylon suture and applied a sterile dressing. He tolerated this well. There were no identified complications. Dr. Lopez plans to start dialysis either this evening or in the morning. cc: González Shepherd MD [facility]
[2017-02-10 22:42] LABS: HEMATOCRIT 27.2 % (42.0-52.0); HEMOGLOBIN 8.5 g/dL (14.0-18.0)
[2017-02-11] MEDS: ZYVOX 600 MG/D5W 600 MG/300 ML IVPB IV SCH ×2 (00:48→13:22)
[2017-02-11] MEDS ORDERED: DILAUDID IV ONE (02:20)
[2017-02-11] MEDS: LEVOPHED 8 MG in D5 1/2 NS 250 ML IV SCH ×3 (04:03→20:47)
[2017-02-11 05:43] LABS: BASO% 0.3 % (0.0-0.8); EOS# 0.07 X1000 (0.0-0.7); EOS% 0.3 % (0.0-10.0); HEMATOCRIT 27.8 % (42.0-52.0); HEMOGLOBIN 8.7 g/dL (14.0-18.0); IMM GRAN# 0.18 X1000 (0.0-0.04); IMM GRAN% 0.7 % (0.0-0.5); LYMPH# 0.65 X1000 (1.2-3.4); LYMPH% 2.6 % (20.5-51.1); MANUAL DIFF NEEDED? YES; MCH 19.3 PG (27-31); MCHC 31.3 g/dL (33-37); MCV 61.8 FL (81-99); MONO% 6.3 % (1.7-9.3); NEUT% 89.8 % (42.2-75.2); PLT 222 X1000 (130-400)
[2017-02-11 05:48] LABS: INR 1.37; PROTIME 14.7 Seconds (9.2-11.7)
[2017-02-11 05:49] LABS: ALBUMIN 2.1 g/dL (3.5-5.0); CALCIUM 7.1 mg/dL (8.8-10.2); POTASSIUM 4.3 mmol/L (3.5-5.1)
[2017-02-11] MEDS: HUMALOG SUBQ SCH ×4 (06:09→20:06)
[2017-02-11] MEDS: QUESTRAN PO SCH ×2 (06:10→18:40)
[2017-02-11 07:01] LABS: BANDS 8 % (0-1); HYPOCHROM 2+; LYMPHS 2 % (21-51); MONO 2 % (1-9)
[2017-02-11] MEDS ORDERED: TIGHT: 0.2 ML/HR MISC PRN (07:32)
[2017-02-11] MEDS ORDERED: HEPARIN IV PRN (07:32)
[2017-02-11] MEDS ORDERED: NS 2,000 ML MISC PRN (07:32)
[2017-02-11 08:45] LABS: BLOOD TYPE VENOUS
[2017-02-11] MEDS: COREG PO SCH ×2 (09:02→20:02)
[2017-02-11] MEDS: RANEXA PO SCH (09:19)
[2017-02-11] MEDS: LEVAQUIN 250 MG/D5W 250 MG/50 ML IVPB IV SCH (09:20)
[2017-02-11] MEDS: PRAVACHOL PO SCH (09:20)
[2017-02-11] MEDS ORDERED: HEPARIN ONE ×2 (09:56→10:09)
[2017-02-11] MEDS ORDERED: NS 2,000 ML ONE ×2 (09:56→10:09)
[2017-02-11] MEDS: SODIUM CHLORIDE 0.9% INJ SCH ×2 (10:08→23:14)
[2017-02-11] MEDS: PROTONIX IV SCH ×2 (10:08→23:14)
--- NOTE | 2017-02-11 10:17 | PROGRESS NOTE ---
DATE: 02/11/2017 SUBJECTIVE: Patient currently resting in bed. He is awake. He is attempting to converse. OBJECTIVE: Vital Signs: Temperature 97 degrees, pulse 61, respiratory rate 15 , blood pressure 91/44. Intake 4.4 L, output 3.6 L 800 of this was urine output. PHYSICAL EXAMINATION: General: This is an elderly gentleman resting in bed. He is awake. No acute distress. HEENT: Normocephalic, atraumatic. Oral mucosa dry. Conjunctivae pale. EPHRAIM. Neck: Supple. Trachea midline. Positive JVD. Cardiovascular: Regular rate and rhythm. He is mildly hypotensive and requiring pressor support. Pulmonary: Equal excursion. He is clear bilaterally today. Decreased breath sounds noted to the posterior bases. Abdomen: Soft, with positive bowel sounds. : Not inspected. Rodriguez catheter: He has dark yellow urine noted. There is a Vas-Cath noted to the right femoral area. Extremities: Trace pretibial edema. No clubbing or cyanosis. He is moving his extremities. Integumentary: Skin is warm and dry. LAB DATA: WBC of 25.4, hemoglobin 8.7. Sodium 131, potassium 4.3, CO2 18, BUN 156, creatinine 5.6. ASSESSMENT AND PLAN: 1. Acute kidney injury. His BUN is 156, creatinine 5.6 today. He had a Vas- Cath placed last night. We will plan to dialyze him this morning on a 2 K bath with ultrafiltration removal of 2 L, although I do not believe we will achieve that ultrafiltration goal as his blood pressure has been tenuous requiring pressor support/2.5 hour treatment. I have discussed with the dialysis nurse and the primary that we may not be able to pull fluid from him today because of his blood pressure but we do need to dialyze. Plan to dialyze him again tomorrow and then re-evaluate on Tuesday. 2. Sepsis, on appropriately dosed antibiotics. Continues to require pressor support. 3. Electrolytes, acid-base balance. We will correct with dialysis today. 4. Anemia. Hemoglobin is fairly stable. We will make no changes today. 5. Altered mental status, improving. 6. Congestive heart failure. See #1 for plan. Dictated by YOHAN Sorto for Alan Lopez MD cc: Alan Lopez MD [facility]
--- NOTE | 2017-02-11 10:18 | PROGRESS NOTE ---
DATE: 02/11/2017 SUBJECTIVE: The patient is a little bit more sleepy today. Complaining of abdominal pain. Not able to tell me when this pain started. According to the nursing staff, this started the last afternoon. No fever or chills reported. OBJECTIVE: Vital Signs: Temperature 97.0 degrees, heart rate 61, respiratory rate 15, blood pressure 91/44, O2 saturation 96% on 3 L nasal cannula. General Examination: This is a chronically ill-looking, not frail, 71-year-old male, lying in bed in no acute distress. HEENT: Head is normocephalic, atraumatic. Anicteric sclerae and pale conjunctivae. Mucous membranes dry. Pupils equal, round, reactive to light and accommodation. Neck: Supple. No JVD noted. No carotid bruits. No lymphadenopathy. No thyromegaly. Cardiovascular exam: A few bibasilar crackles still present. S1, S2 heard. No murmurs, gallops, or rubs. Regular rate and rhythm. Respiratory exam: There are still a few bibasilar crackles noted. Patient is not using any accessory muscles or having work of breathing. Abdomen: Soft, a little bit distended in comparing with yesterday. General tenderness to palpation. Bowel sounds present. No organomegaly. Extremities: No clubbing, cyanosis, or edema. Peripheral pulses present in both legs. Neurological: Patient is sleepy, but responds to verbal stimuli. Moves 4 extremities. LABORATORY DATA: White cell count 25.46, hemoglobin 8.7, hematocrit 27.8, platelets 222. BMP shows sodium 131, potassium 4.3, chloride 93, bicarbonate 18, BUN 156 and creatinine 5.6. ASSESSMENT AND PLAN: 1. Altered mental status. This condition is going on and off. By now, he is a little bit more sleepy. CT of the head done yesterday did not show any bleeding or any overt gross abnormality. 2. Abdominal discomfort. A CT of the chest, abdomen and pelvis did not show any gross abnormality, but suggests the possibility of mesenteric ischemia. Lactate from yesterday and today is normal, but because this patient persists with abdominal pain, a consultation was placed on last Tuesday by Dr. Purvis, vascular surgeon, to see there is anything else that we can do for this patient here. We will follow the recommendations. 3. Acute kidney injury that is multifactorial. Nephrology has been consulted and they have ordered to place a Vas-Cath yesterday. They are planning to start dialysis today. We will follow their recommendations. 4. Gastrointestinal bleeding suspected. There was a report that this patient was having coffee- ground vomiting once, but hemoglobin so far has been stable. We will continue checking complete blood count daily. 5. Septic shock secondary to left lower lobe pneumonia. Patient is on Zyvox, levofloxacin, and because the white cell count is getting worse will add cefepime to his current treatment. Overall this patient is not doing good, complaining of more abdominal pain. Dr. Purvis from vascular surgery has been consulted for possible mesenteric ischemia. In the meantime, we will continue with the same treatment. cc: Manny Sanchez MD
[2017-02-11] MEDS: MAXIPIME 1 GM/NS 1 GM/50 ML IVPB IV SCH (16:26)
[2017-02-11] MEDS: DILAUDID IV PRN (18:41)
[2017-02-12] MEDS: ZYVOX 600 MG/D5W 600 MG/300 ML IVPB IV SCH ×2 (00:47→18:02)
[2017-02-12] MEDS: LEVOPHED 8 MG in D5 1/2 NS 250 ML IV SCH ×3 (05:18→18:01)
[2017-02-12] MEDS: DILAUDID IV PRN (05:19)
[2017-02-12 05:57] LABS: BASO% 0.2 % (0.0-0.8); EOS# 0.02 X1000 (0.0-0.7); EOS% 0.1 % (0.0-10.0); HEMATOCRIT 27.2 % (42.0-52.0); HEMOGLOBIN 8.5 g/dL (14.0-18.0); IMM GRAN# 0.37 X1000 (0.0-0.04); IMM GRAN% 1.2 % (0.0-0.5); LYMPH# 0.63 X1000 (1.2-3.4); MANUAL DIFF NEEDED? YES; MCH 19.1 PG (27-31); MCHC 31.3 g/dL (33-37); MONO% 5.4 % (1.7-9.3); NEUT% 91.1 % (42.2-75.2); PLT 220 X1000 (130-400); RBC 4.46 XMIL (4.7-6.1)
[2017-02-12] MEDS: QUESTRAN PO SCH ×2 (06:04→18:21)
[2017-02-12] MEDS: HUMALOG SUBQ SCH ×4 (06:04→21:39)
[2017-02-12 06:08] LABS: INR 1.32; PROTIME 14.1 Seconds (9.2-11.7)
[2017-02-12 06:16] LABS: ALBUMIN 2.1 g/dL (3.5-5.0); POTASSIUM 4.1 mmol/L (3.5-5.1)
[2017-02-12 06:56] LABS: BANDS 8 % (0-1); LYMPHS 2 % (21-51); MONO 4 % (1-9)
[2017-02-12 06:57] LABS: HYPOCHROM 2+
[2017-02-12 06:58] LABS: TARGET CELLS OCCASIONAL
[2017-02-12 06:59] LABS: LARGE PLATELETS OCCASIONAL
--- NOTE | 2017-02-12 08:10 | PROGRESS NOTE ---
DATE: 02/12/2017 SUBJECTIVE: Patient still reports pain. Nursing staff reported black tarry stool through the night. He is still on Levophed. OBJECTIVE: Vital Signs: Patient is currently afebrile. Heart rate in the 70s. Blood pressure in the low 100s while on Levophed. Patient's saturations in the mid 90s. Respiratory rate is nonlabored. General: No acute distress. Cardiovascular: Regular rate and rhythm. Lungs: Grossly clear. Abdomen: Soft, tender to palpation in the bilateral lower quadrants. Some guarding noted. LABORATORY: White blood cell count 31, platelet count 222,000, hematocrit 27.2, INR 1.32. ASSESSMENT AND PLAN: A 71-year-old male with possible mesenteric ischemia. At this time, his white blood cell count is still trending up. I am concerned that given his elevated white blood cell count of 25 despite being on antibiotics may be secondary to an intra-abdominal process that we have not fully evaluated. He has still been on Levophed which may contribute to continued bowel ischemia. I will plan for an exploratory laparotomy to evaluate and rule out any intra-abdominal process. We will try to obtain consent from the daughter. He is high risk for surgery and will likely remain intubated postoperatively. cc: Zion Saucedo MD
[2017-02-12] MEDS ORDERED: CALCIUM GLUCONATE 3 GM in NS 100 ML IV ONE (08:53)
[2017-02-12] MEDS: LEVAQUIN 250 MG/D5W 250 MG/50 ML IVPB IV SCH (09:28)
[2017-02-12] MEDS ORDERED: HEPARIN ONE (09:38)
[2017-02-12] MEDS ORDERED: NS 2,000 ML ONE (09:38)
[2017-02-12] MEDS: PRAVACHOL PO SCH (10:18)
[2017-02-12] MEDS: RANEXA PO SCH (10:18)
[2017-02-12] MEDS: COREG PO SCH ×2 (10:18→23:35)
--- NOTE | 2017-02-12 10:47 | PROGRESS NOTE ---
DATE: 02/12/2017 SUBJECTIVE: Patient is sitting up in the bed. He is awake and alert. He does have some confusion, but he is pleasant and interacting appropriately. OBJECTIVE: Vital Signs: Temperature 97.2 degrees, pulse 70, respiratory rate 14 , blood pressure 123/62. Intake 980 mL. Output 950 mL plus UF removal noted on dialysis records. PHYSICAL EXAMINATION: General: This is an elderly gentleman sitting up in bed. He is awake and alert. He is preparing to go to surgery this morning. HEENT: Normocephalic, atraumatic. His oral mucosa is dry. Conjunctivae pale. EPHRAIM. Neck is supple. Trachea midline. He has some trace JVD. Cardiovascular: Regular rate and rhythm. He continues to be mildly hypotensive requiring pressor support. Pulmonary: He has equal excursion. He is clear bilaterally with no increased work of breathing. He remains on O2 supplementation via nasal cannula. Abdomen soft with positive bowel sounds. : Not inspected. He has a Rodriguez catheter. There is a moderate amount of dark urine noted. Extremities: Trace pretibial edema. No clubbing, cyanosis. He is moving extremities. Integumentary: Skin is warm and dry without rash or lesion. LABORATORY DATA: WBC of 31.4, hemoglobin 8.5, hematocrit 27.2, and platelet count of 220,000. WBC of 31.4, hemoglobin 8.5, hematocrit 27.2, and platelet count of 220,000. Sodium 135, potassium 4.1, CO2 of 20. BUN 130, creatinine 3.8. Calcium 7.0, phosphorus 5.5. Albumin 2.1. ASSESSMENT AND PLAN: 1. Acute kidney injury. The patient underwent his initial dialysis yesterday. He had an episode of heart rhythm change as well as altered mental status. We reduced his flow rate on the machine down to around 200, and he was able to tolerate that. We were able to remove some fluid yesterday, however, today's blood pressure has been lower. We will plan today to run him on sustained low-efficiency dialysis for dialysis secondary to the concern for disequilibrium syndrome secondary to his extremely elevated BUN. We understand the patient is to go to surgery this morning for exploratory lap; therefore, we will place him on sustained low-efficiency dialysis after surgery and run him for the remainder of the day. We will make decisions in the morning regarding treatment plan for dialysis. Anticipate we will run him on sustained low-efficiency dialysis again on Tuesday depending on his status. 2. Sepsis, ischemic bowel. On appropriately dosed antibiotics. Again, we understand he is to go to surgery today. 3. Electrolytes, acid-base balance, anemia. These have been stable. Again, we will dialyze this afternoon and correct labs. 4. Congestive heart failure. We would like to get some fluid off of this gentleman; however, his blood pressure will probably not allow that. It is also noted that his urine output has picked up overnight. Again, we will make decisions in the morning regarding treatment plan. Dictated by YOHAN Sorto for Alan Lopez MD cc: Alan Lopez MD [facility]
[2017-02-12] MEDS ORDERED: DIPRIVAN 1% 1,000 MG/100 ML BOTTLE IV SCH ×2 (13:00→13:03)
[2017-02-12] MEDS ORDERED: NIMBEX 80 MG in NS 160 ML IV SCH (13:15)
--- NOTE | 2017-02-12 13:22 | OPERATIVE NOTE ---
PROCEDURE DATE: 02/12/2017 PREOPERATIVE DIAGNOSES: 1. Abdominal pain. 2. Worsening leukocytosis. 3. Hypotension. 4. Possible mesenteric ischemia. POSTOPERATIVE DIAGNOSIS: Ischemic, gangrenous small bowel. PROCEDURES PERFORMED: 1. Exploratory laparotomy. 2. Small bowel resection. 3. Placement of a temporary negative pressure wound dressing for abdominal closure. SURGEON: Zion Saucedo MD CLIENT COORDINATOR: González Shepherd MD, who assisted with retraction and dissection. I asked Dr. Shepherd to come to the procedure to have a 2nd opinion on futility of overall procedure. ANESTHESIA: General endotracheal. COMPLICATIONS: None at the time of dictation. ESTIMATED BLOOD LOSS: 20 mL. SPECIMENS REMOVED: Small bowel. DRAINS: The patient had a temporary wound VAC closure placed. HISTORY: The patient is a 71-year-old male who had been admitted previously. He had a significant development of leukocytosis. He had been seen by my partners over the weekend. His white blood cell count jumped to 31,000. He had known SMA occlusion. Given his significant leukocytosis and developing abdominal pain and his requirement of pressors to keep his blood pressure up, it was felt the patient would benefit from exploratory laparotomy to find the etiology. This was discussed with his granddaughter, who is the power of dough mixer operator. INTRAOPERATIVE FINDINGS: All but approximately 60 cm of small bowel, which did include the ileocecal valve, was ischemic. We resected the small bowel. He was left in discontinuity with approximately 20 cm from the ligament of Treitz and 40 cm to the ileocecal bowel and still in vivo. I did not put him back together given the fact that his bowel still looked questionable and he was still on pressors. DESCRIPTION OF PROCEDURE: After informed consent was obtained, the patient was brought to the operative theatre, transferred to the operating table, and placed in supine position. General orotracheal anesthesia was then performed without complication. A formal time-out was then performed, confirming patient, date, and procedure. All were in agreement. At that time, attention was given to the abdomen. A standard midline standard midline incision was made to enter into the abdomen. Upon entering into the abdomen, we encountered ischemic bowel. We did encounter approximately a liter of serosanguineous fluid which we suctioned. We evaluated the small bowel in its entirety from the ligament of Treitz to the ileocecal bowel. We also examined the colon. The colon appeared to be normal but, as stated above, the small bowel was significantly ischemic. We noticed approximately 20 cm proximally from the ligament of Treitz and 40 cm distally at the ileocecal valve was viable. I called Dr. Shepherd to assist with the procedure to get a 2nd opinion on the viability of the bowel. He concurred. We elected to remove this part of the small bowel, leave him in discontinuity, and perform a 2nd look operation. We placed staplers at either end of the ischemic areas and brought a stapler across. We used the LigaSure to remove the mesentery. We passed the specimen off. It should be noted that we did place a Doppler on it and did not hear significant flow noted in the ischemic area that was resected. Again, given the patient being on pressors and overall appearance of his bowel, we elected to not perform an anastomosis and perform a 2nd look operation. We irrigated out the abdomen copiously and place a temporary wound dressing, which included a fully perforated 10-10 drape, blue towel, 2 flat SHERI drains, and iodoform to form a negative pressure wound dressing. This had a good seal. The patient tolerated the procedure well. He remained in the operating room for Anesthesia to place a central line. He will be transferred to the ICU, still in critical condition on the ventilator. We will plan for a 2nd look operation in the morning. cc: Zion Saucdeo MD
--- NOTE | 2017-02-12 13:29 | Diag Imaging Result Doc PS360 ---
EXAM: CHEST/ABD TUBE PLACEMENT HISTORY: CVL placement and NGT placement TECHNIQUE: Portable supine, single view COMPARISON: 02/09/2017 FINDINGS: A nasogastric tube overlies the esophagus and stomach. Endotracheal tube is in good position. There are sternal wires and a right-sided pacemaker. The lower lungs are clear. The heart remains prominent. There is a left jugular line tip overlying the upper superior vena cava. No pneumothorax identified. IMPRESSION: Left jugular line and nasogastric tube in good position. Electronically signed by Corby Phillips 02/12/2017 1:26 PM
[2017-02-12 13:49] LABS: ALLEN TEST YES; BE -7.3 mmoll (-3.0-3.0); BLOOD TYPE ARTERIAL; DRAW SITE L RADIAL; METHB 0.7 % (0.0-1.5); O2(CT) 11.7 mL/dL (15.0-23.0); PO2(98.6) 76 mmHg (60-100); SAMPLE BLOOD; SAO2 93.2 % (95.0-100.0); SRATE 12 BPM; THB 9.1 g/dL (11.5-17.4); TVOL 550 mL; pH(98.6) 7.17 (7.35-7.45)
[2017-02-12 13:55] LABS: MODALITY VENTILATOR; PCO2(98.6) 58 mmHg (35-45)
--- NOTE | 2017-02-12 14:04 | CONSULTATION ---
DATE OF CONSULTATION: 02/12/2017 REFERRING PHYSICIAN: Dr. Zion Saucedo. CHIEF COMPLAINT: Evaluation for vent management in a patient with shock, sepsis postoperative for bowel. HISTORY OF PRESENTING ILLNESS: This is a 71-year-old man with past history of congestive heart failure and cardiomyopathy, coronary artery disease, hypertension, diabetes, bypass surgery in the past and 2 different surgeries and cardiac stent surgery in the past. Presented to the hospital for some sepsis and I believe as per discussion with Dr. Saucedo on review of records we have now he has ischemic bowel the was removed and they left the wound open and dressed for reexploration tomorrow and he is requiring paralysis. PAST MEDICAL HISTORY: Peripheral vascular disease, diabetes, coronary artery disease, bypass surgery x2 stents placement, hyperlipidemia, hypertension, congestive heart failure, ejection fraction in the 20s. PAST SURGICAL HISTORY: Pacemaker implantation, cholecystectomy, stenting of lower extremities, right femoral bypass of lower extremity, appendectomy and CABG and now ischemic bowel removal resection. REVIEW OF SYSTEMS: As detailed in history of presenting illness, otherwise noncontributory. FAMILY HISTORY: Coronary disease, diabetes, hypertension. SOCIAL HISTORY: Ex-smoker. ALLERGIES: Include cimetidine. MEDICATIONS IN THE HOSPITAL: Were reviewed and they include Levophed, Pavel-Synephrine, cefepime, Linezolid, Nimbex, Solu-Cortef, Levaquin, Versed, trying to give him advantage his blood pressure we discontinue the Diprivan. PHYSICAL EXAMINATION: General Examination: He is in bed intubated, many staff members from OR and ICU were settling him down paralyzed. Vital Signs: Noted. Initially his blood pressure was stable then blood pressure dropped with mean of 65 and we initiated Pavel-Synephrine, discontinued Diprivan and so that is vital signs. Head and Neck: Examined. Trachea midline. ET tube in place. Cardiac Exam: Exam S1-S2. There is an old mediastinal scar. Chest Exam: Good entry at the bases. Slight reduced entry at the bases. Abdomen: Postoperative. His surgical wound is open but not sutured but dressed over. Extremities: There is +1 pedal edema. Neurologic: Sedated, paralyzed. LABORATORY AND INVESTIGATIONS: ABG, CBC, CMP, all the above have been reviewed and I ordered stat chest x-ray and stat ABG. ASSESSMENT AND PLAN: This is a 71-year-old man with extensive past medical history as above and now has a sepsis shock, renal failure, respiratory failure, postoperative ischemic bowel resection requiring paralysis for an open wound that requires reexploration tomorrow for assurance of making sure there is no further ischemic bowels inside. Continue with antibiotics, assist- control ventilation, sedation, paralysis, pressors, stress dose steroids and antibiotics. Discussed with Dr. Saucedo, nursing staff, respiratory staff and OR staff. cc: Holger Addison MD
[2017-02-12 14:17] LABS: BASO% 0.3 % (0.0-0.8); EOS# 0.01 X1000 (0.0-0.7); HEMATOCRIT 29.2 % (42.0-52.0); HEMOGLOBIN 9.3 g/dL (14.0-18.0); IMM GRAN# 0.66 X1000 (0.0-0.04); IMM GRAN% 1.7 % (0.0-0.5); LYMPH# 0.92 X1000 (1.2-3.4); LYMPH% 2.4 % (20.5-51.1); MANUAL DIFF NEEDED? YES; MCH 19.7 PG (27-31); MCHC 31.8 g/dL (33-37); MCV 61.7 FL (81-99); MONO# 1.85 X1000 (0.11-0.59); MONO% 4.9 % (1.7-9.3); NEUT% 90.7 % (42.2-75.2); PLT 237 X1000 (130-400); RBC 4.73 XMIL (4.7-6.1)
[2017-02-12] MEDS: PROTONIX IV SCH ×2 (14:26→23:52)
[2017-02-12] MEDS: SOLU-CORTEF IV SCH ×2 (14:26→19:30)
[2017-02-12] MEDS: SODIUM CHLORIDE 0.9% INJ SCH (14:26)
[2017-02-12 14:34] LABS: LYMPHS 2 % (21-51); MONO 7 % (1-9)
[2017-02-12 14:55] LABS: CALCIUM 7.5 mg/dL (8.8-10.2); POTASSIUM 4.6 mmol/L (3.5-5.1); TOTAL BILIRUBIN 1.74 mg/dL (0.20-1.00); TOTAL PROTEIN 4.1 g/dL (6.3-8.3)
[2017-02-12] MEDS: VERSED 100 MG in NS 80 ML IV SCH ×2 (15:22→15:32)
[2017-02-12] MEDS: NEO-SYNEPHRINE 50 MG in NS 250 ML IV SCH (15:41)
[2017-02-12] MEDS: NIMBEX 80 MG in NS 160 ML IV SCH (15:43)
[2017-02-12] MEDS ORDERED: VERSED ONE (15:57)
[2017-02-12] MEDS: MAXIPIME 1 GM/NS 1 GM/50 ML IVPB IV SCH (18:01)
--- NOTE | 2017-02-12 18:25 | PROGRESS NOTE ---
DATE: 02/12/2017 SUBJECTIVE: Patient reports feeling more abdominal pain today. Apparently, the patient had black tarry stools last night. No fever or chills reported. OBJECTIVE: Vital Signs: Temperature 97.2 degrees, heart rate 70, respiratory rate 14, blood pressure 123/64. O2 saturation 96% on 3 L nasal cannula. General: This is a chronically ill- looking and frail 71-year-old male, lying in bed, in no acute distress. HEENT: Head is normocephalic and atraumatic. Anicteric sclerae and pale conjunctivae. Mucous membranes dry. Pupils equal, round, reactive to light and accommodation. Neck supple. No JVD. No carotid bruits. No lymphadenopathy. No thyromegaly. Cardiovascular: S1, S2 heard. No murmurs, gallops, or rubs. Regular rate and rhythm. Respiratory: A few bibasilar crackles are still noted. Patient is not using any accessory muscles or having work of breathing. Abdomen is soft, more distended in comparing with yesterday with a few hyperdynamic bowel sounds. The patient is not using any accessory muscles or having work of breathing. No organomegaly. Extremities: No clubbing, cyanosis, or edema. Peripheral pulses present in both legs. Neurological: Patient is alert and awake. Moves 4 extremities. LABORATORY DATA: White cell count 31.47, hemoglobin 8.5, hematocrit 27.2, platelets 220,000. BMP remarkable for creatinine 3.8 and BUN 130. Calcium 7.0. ASSESSMENT AND PLAN: 1. Abdominal discomfort. CT of the chest, abdomen, and pelvis shows no gross abnormality but suggest the possibility of mesenteric ischemia. White cell count keeps going up despite adding one new antibiotic to the current treatment. The patient on physical examination disclosed more abdominal pain with more distention, so Dr. Saucedo from General Surgery has decided to take this patient to the Operating Room to do an exploratory laparotomy. We will see what they have to say. 2. Acute kidney injury, multifactorial. The plan for nephrology was to start dialysis but, unfortunately, because this patient is on vasopressors, the patient was not able to tolerate dialysis, so they are planning sustained low-efficiency dialysis the day after surgery. 3. Septic shock secondary to left lung pneumonia. Patient on Zyvox, levofloxacin and cefepime. Patient is still requiring vasopressors. We will continue checking this patient here in the Intensive Care Unit. 4. Gastrointestinal bleeding suspected because of the finding of black stools. We will see if there is any sign of gastrointestinal bleeding. 5. Altered mental status. The condition has resolved. 6. Left lung pneumonia. Patient on antibiotics as above. cc: Manny Sanchez MD
[2017-02-12 19:46] LABS: CALCIUM 7.4 mg/dL (8.8-10.2); MAGNESIUM 2.3 mg/dL (1.5-2.7); POTASSIUM 4.8 mmol/L (3.5-5.1); PREALBUMIN 4.4 mg/dL (20-40)
[2017-02-12 20:14] LABS: INR 1.32; PROTIME 14.1 Seconds (9.2-11.7)
[2017-02-12 20:20] LABS: PTT HEPARIN PROTOCOL 44.3 Seconds
[2017-02-12] MEDS: FENTANYL 1,000 MICROGM in NS 80 ML IV SCH (20:30)
[2017-02-12] MEDS: MAGNESIUM SULFATE IV SCH ×6 (20:45)
[2017-02-12] MEDS: TPN ELECTROLYTES IV SCH ×6 (20:45)
[2017-02-12] MEDS: M V I IV SCH ×6 (20:45)
[2017-02-12] MEDS: LIPOSYN 20% 250 ML IV SCH (20:45)
[2017-02-12] MEDS: [UNRECOGNIZED DRUG - OTHER] IV SCH ×6 (20:45)
[2017-02-13] MEDS: HUMALOG SUBQ SCH ×7 (01:00→23:37)
[2017-02-13] MEDS: ZYVOX 600 MG/D5W 600 MG/300 ML IVPB IV SCH ×2 (01:00→13:26)
[2017-02-13] MEDS: SOLU-CORTEF IV SCH ×4 (02:30→20:30)
[2017-02-13 04:31] LABS: ALLEN TEST YES; BE -2.7 mmoll (-3.0-3.0); BLOOD TYPE ARTERIAL; DRAW SITE R RADIAL; METHB 0.7 % (0.0-1.5); O2(CT) 11.8 mL/dL (15.0-23.0); PO2(98.6) 127 mmHg (60-100); SAMPLE BLOOD; SAO2 98.5 % (95.0-100.0); SRATE 12 BPM; THB 8.5 g/dL (11.5-17.4); TVOL 550 mL; pH(98.6) 7.23 (7.35-7.45)
[2017-02-13 04:32] LABS: MODALITY VENTILATOR; PCO2(98.6) 60 mmHg (35-45)
[2017-02-13 06:36] LABS: MAGNESIUM 2.4 mg/dL (1.5-2.7)
[2017-02-13] MEDS: QUESTRAN PO SCH ×2 (06:39→18:31)
[2017-02-13 06:43] LABS: BASO% 0.1 % (0.0-0.8); EOS# 0.01 X1000 (0.0-0.7); HEMATOCRIT 26.8 % (42.0-52.0); IMM GRAN# 0.36 X1000 (0.0-0.04); IMM GRAN% 1.3 % (0.0-0.5); LYMPH# 0.73 X1000 (1.2-3.4); LYMPH% 2.7 % (20.5-51.1); MANUAL DIFF NEEDED? YES; MCHC 29.9 g/dL (33-37); MCV 63.5 FL (81-99); MONO# 0.87 X1000 (0.11-0.59); MONO% 3.2 % (1.7-9.3); NEUT% 92.7 % (42.2-75.2); PLT 236 X1000 (130-400); RBC 4.22 XMIL (4.7-6.1)
[2017-02-13] MEDS: NIMBEX 80 MG in NS 160 ML IV SCH (06:43)
[2017-02-13 06:44] LABS: ALBUMIN 1.7 g/dL (3.5-5.0); CALCIUM 7.3 mg/dL (8.8-10.2)
--- NOTE | 2017-02-13 06:57 | Diag Imaging Result Doc PS360 ---
EXAM: CHEST-1 VIEW HISTORY: SOB TECHNIQUE: Portable AP COMPARISON: 02/12/2017 FINDINGS: Endotracheal tube remains in good position. Nasogastric tube overlies the esophagus and stomach. Patient has a right-sided pacemaker. The heart remains enlarged. Sternal wires and surgical clips are present. No infiltrates. IMPRESSION: Stable chest. Electronically signed by Corby Phillips 02/13/2017 6:54 AM
--- NOTE | 2017-02-13 07:23 | PROGRESS NOTE ---
DATE: 02/13/2017 SUBJECTIVE: Discussed patient's care with the nurse. Overnight he has remained on the ventilator and sedated. There was a period of time where he had to be on both Pavel-Synephrine and Levophed but they have subsequently stopped the Pavel-Synephrine. OBJECTIVE: Vital Signs: Patient's current temperature is 97.2 degrees, pulse 67, respiratory rate on the ventilator 14, blood pressure 125/49 on Levophed. General: Sedated and paralyzed, on the ventilator. Cardiovascular: Regular rate and rhythm. Lungs: Referred airway noises. Abdomen: Wound VAC in place with serosanguineous output. LABORATORY: White blood cell count is 26.8, hematocrit 26.8, platelet count 236,000. ABG showed a pH 7.23, pCO2 of 60, PO2 of 127, base deficit of 2.7 which has improved. Remainder of labs reviewed. ASSESSMENT AND PLAN: This is a 71-year-old male status post extensive small bowel resection for ischemic bowel. 1. Status post small bowel resection. At this time, we plan to take to the operating room for a 2nd look operation today. Discussed this with the family. We will evaluate if there is any further ischemic bowel. 2. Severe protein malnutrition. At this point, the patient has been started on TPN. 3. Leukocytosis, likely related to ischemic bowel. It seems to be mildly improving. 4. Acute renal failure. At this time, he tolerated dialysis. Will follow up with their recommendations. We will continue to follow with you. cc: Zion Saucedo MD
[2017-02-13] MEDS: LEVOPHED 8 MG in D5 1/2 NS 250 ML IV SCH ×3 (07:49→23:56)
[2017-02-13 07:54] LABS: BANDS 4 % (0-1); LYMPHS 6 % (21-51); MONO 2 % (1-9)
[2017-02-13 08:00] LABS: HYPOCHROM 3+; TARGET CELLS OCCASIONAL
[2017-02-13 08:17] LABS: HEPATITIS PROFILE ACUTE SEE COMMENTS
[2017-02-13] MEDS ORDERED: NS 500 ML ONE (08:39)
[2017-02-13] MEDS: LEVAQUIN 250 MG/D5W 250 MG/50 ML IVPB IV SCH (09:16)
[2017-02-13] MEDS: PRAVACHOL PO SCH (09:17)
[2017-02-13] MEDS: COREG PO SCH ×2 (09:17→20:53)
[2017-02-13] MEDS: RANEXA PO SCH (09:18)
[2017-02-13] MEDS ORDERED: CALCIUM GLUCONATE 2 GM in NS 100 ML IV ONE (11:00)
[2017-02-13] MEDS: SODIUM CHLORIDE 0.9% INJ SCH (13:16)
[2017-02-13] MEDS: PROTONIX IV SCH ×2 (13:16→23:34)
--- NOTE | 2017-02-13 14:17 | PROGRESS NOTE ---
DATE: 02/13/2017 SUBJECTIVE: Patient is sedated, paralyzed, and intubated. OBJECTIVE: Vital Signs: Temperature 97.9 degrees, heart rate 64, respiratory rate 18, blood pressure 143/59, O2 saturation 100% on mechanical ventilator. General Examination: Patient is sedated, paralyzed, and intubated. HEENT: Head is normocephalic, atraumatic. Anicteric sclerae. Pale conjunctivae. Mucous membranes dry. Pupils equal, round, reactive to light and accommodation. Neck: Supple. No JVD. No carotid bruits. No lymphadenopathy. No thyromegaly. Cardiovascular: S1, S2 heard. No murmurs, gallops, or rubs. Regular rate and rhythm. Respiratory: Coarse breath sounds in both bases. Patient is not using any accessory muscles or having work of breathing. Abdomen: Soft. Wound VAC in place with serosanguineous output. Extremities: No clubbing, cyanosis, or edema. Peripheral pulses present in both legs. Neurologic: Patient is intubated and paralyzed. LABORATORY DATA: White cell count 26.88, hemoglobin 8.0, hematocrit 26.8, platelets 236,000. ABG shows pH 7.23, pCO2 60, PO2 127. Sodium 132, potassium 4.0, chloride 96, bicarbonate 24, BUN , creatinine 2.9. ASSESSMENT AND PLAN: 1. Septic shock. This is secondary to pneumonia and, of course, ischemic bowel disease. Yesterday the patient was on 2 vasopressors but finally we were able to stop 1 of them and currently this patient is on Levophed. That may have contributed to ischemic bowel disease. Dr. Saucedo is following this patient. 2. Ischemic bowel disease. The patient has been taken to the OR because the white cell count is getting higher and there they removed approximately 60 cm of the small bowel. Patient is going to be taken to the OR today to make sure there is no necrotic tissue remaining in the abdomen. We will continue with the same management. 3. Acute kidney injury, requiring hemodialysis. Because of the blood pressure they were able to perform just SLED, not pulling out too much fluids. 4. Suspecting gastrointestinal bleeding. Most probably secondary to this ischemic bowel disease. 5. Altered mental status. The patient is sedated and paralyzed. 6. Left lower lobe pneumonia. Patient is on antibiotics as above. Currently this patient is on Zyvox and cefepime. Patient has been started on parenteral nutrition, on TPN. cc: Manny Sanchez MD [facility]oret[facility]
[2017-02-13] MEDS: FENTANYL 1,000 MICROGM in NS 80 ML IV SCH (14:56)
[2017-02-13] MEDS: MAXIPIME 1 GM/NS 1 GM/50 ML IVPB IV SCH (17:00)
--- NOTE | 2017-02-13 17:32 | OPERATIVE NOTE ---
PROCEDURE DATE: 02/13/2017 PREOP DIAGNOSES: 1. Ischemic bowel. 2. Open abdomen. POSTOPERATIVE DIAGNOSES: 1. Ischemic bowel. 2. Open abdomen. PROCEDURE: 1. Reexploration of recent laparotomy. 2. Small-bowel resection x2. 3. Small bowel anastomosis (stapled anastomosis). 4. Delayed abdominal closure. SURGEON: Zion Saucedo MD. UX DESIGN LEAD: None. ANESTHESIA: General endotracheal. INTRAOPERATIVE FINDINGS: The anastomosis ends appeared to be necrotic. We resected it back, placed a Doppler on the area but had noticed good blood flow. We elected at this time to do anastomosis. BRIEF HISTORY: The patient is a 71-year-old male who took to the operating room yesterday for ischemic bowel. Had removed significant portion of his small intestine, left him in discontinuity and left him with open abdomen, felt like he would benefit from a 2nd look operation. The risks, benefits, alternatives were discussed with the family. All questions answered. DESCRIPTION OF PROCEDURE: After informed consent was obtained, the patient brought operative theatre, transferred operating table, placed supine position. The patient remained intubated the whole time. Previous negative pressure wound dressing was removed. Abdomen prepped and draped sterile fashion. After the time-out we explored the abdomen. The ends of the small bowel were necrotic. We elected to remove these, used the stapler which we divided back to good tissue, removed approximately 2 cm on each side. We placed a Doppler on the antimesenteric side and heard flow. Remainder the bowel appeared viable. We therefore elected to do a stapled anastomosis. We did this with stapler. We actually were able to examine the mucosa, appeared to be viable. We over sewed the staple line the best we could and placed a stitch in the crotch. We closed the mesenteric defect. Again there were 2 ends of the small bowel that we resected. We irrigated the abdomen copiously. We elected to close the abdomen in delayed fashion since we left it open. We closed the peritoneum with 0 running chromic, closed the fascia with interrupted #1 Vicryl and skin with noe. The patient tolerated procedure well. Still in critical condition. We transferred to the ICU in stable condition. I did discuss with the family in the postop holding area the risks of the anastomosis breaking down given his current clinical status. cc: Zion Saucedo MD
--- NOTE | 2017-02-13 17:41 | PROGRESS NOTE ---
DATE: 02/13/2017 TIME SEEN: 1345. SUBJECTIVE: Mr. Pereira is resting quietly in bed. He has just returned from surgery in the last couple hours. He remains sedated and ventilator dependent. OBJECTIVE: Vital signs: His most recent vital signs, temperature 97.9 degrees, blood pressure 143/59, heart rate 64, respirations 18. He is currently on 60% FiO2. His last recorded saturation is 100%. He has had in, 1885 out. Labs: Sodium 133, potassium 5, chloride 96, CO2 24, BUN 103, creatinine 2.9, glucose 306, anion gap 13, calcium 7.3, phosphorus 6.1, albumin 1.7. His white count 26.88, hemoglobin 8, hematocrit 26.8, platelet count 236,000. His last magnesium was 2.4. His last ABG, pH 7.23, CO2 60, PO2 127, bicarb 22.8 on 60%. He has a lactate of 1.9. His PTT is 41.3. PHYSICAL EXAMINATION: General: This is a 71-year-old, elderly white male. He remains ventilator dependent and sedated. He has had surgery this a.m. He remains on pressor support. HEENT: Normocephalic, atraumatic. Mucous membranes are dry. Neck: Supple. Trachea midline. He has trace JVD. Cardiovascular: He is regular rate and rhythm. He is mildly tachycardic. He has pressor support for mild hypotension. Pulmonary: He has ventilator dependent. Equal excursion. No increased work of breathing. No rales or rhonchi noted. Slight expiratory wheezes upon exploration. Otherwise equal excursion. Abdomen: Soft. Positive bowel sounds. Nontender. Genitourinary: Rodriguez catheter is in place. Not inspected. He has a moderate amount of dark urine to the urometer. Extremities: Has trace pretibial edema. Appears to have some venous stasis. No clubbing or cyanosis. Neurological: Again, he is sedated, ventilator dependence. Integumentary: No rashes or lesions noted. ASSESSMENT AND PLAN: 1. Acute kidney injury. Patient has again undergone surgery this a.m. We will plan for dialysis in the a.m. He continues 8 L positive at this time. He remains on Levophed, Pavel-Synephrine backup. He currently has TPN and lipids infusing. He remains on Solu-Cortef support. 2. Electrolytes and acid-base balance. Mild hyponatremia. Mild hyperkalemia. Again with correction on dialysis in the a.m. 3. Fluid volume overload. Patient is receiving TPN and lipids at this time. He is 8 L positive. We will plan for dialysis in the a.m. to assist. 4. Sepsis with ischemic bowel. Again he had surgery this a.m. for completion. This is followed by the surgery team. 5. Anemia. This remains low but stable. I would like to thank you for allowing us to follow with this patient. Dictated by YOHAN Lawrence for Alan Lopez MD cc: YOHAN Lawrence MD
[2017-02-13] MEDS: LIPOSYN 20% 250 ML IV SCH (20:48)
[2017-02-13] MEDS: VERSED 100 MG in NS 80 ML IV SCH (20:49)
[2017-02-13] MEDS: [UNRECOGNIZED DRUG - OTHER] IV SCH ×6 (20:49)
[2017-02-13] MEDS: TPN ELECTROLYTES IV SCH ×6 (20:49)
[2017-02-13] MEDS: MAGNESIUM SULFATE IV SCH ×6 (20:49)
[2017-02-13] MEDS: M V I IV SCH ×6 (20:49)
[2017-02-14] MEDS: HUMALOG SUBQ SCH ×7 (01:52→21:05)
[2017-02-14] MEDS: ZYVOX 600 MG/D5W 600 MG/300 ML IVPB IV SCH ×2 (01:52→12:49)
[2017-02-14] MEDS: SOLU-CORTEF IV SCH ×4 (01:53→18:29)
[2017-02-14 04:40] LABS: ALLEN TEST YES; BE 2.6 mmoll (-3.0-3.0); BLOOD TYPE ARTERIAL; DRAW SITE R RADIAL; METHB 0.7 % (0.0-1.5); O2(CT) 5.3 mL/dL (15.0-23.0); PO2(98.6) 82 mmHg (60-100); SAMPLE BLOOD; SRATE 12 BPM; THB 3.8 g/dL (11.5-17.4); TVOL 550 mL; pH(98.6) 7.33 (7.35-7.45)
[2017-02-14 04:42] LABS: MODALITY VENTILATOR; PCO2(98.6) 54 mmHg (35-45)
[2017-02-14] MEDS: QUESTRAN PO SCH ×2 (06:33→18:28)
--- NOTE | 2017-02-14 06:54 | PROGRESS NOTE ---
DATE: 02/14/2017 SUBJECTIVE: Discussed the patient's course with the nurse overnight. He is on pressors, although they are decreasing the pressors at this point. Otherwise, no acute changes. OBJECTIVE: Vital Signs: Patient is currently afebrile. His most recent temperature was 97.4 degrees, most recent pulse 67, most recent respiratory rate 16. He is on the ventilator. Most recent blood pressure was 116/46. He is currently on Levophed and it is decreasing. General Examination: Sedated on the ventilator. Cardiovascular: Regular rate and rhythm. Lungs: Referred airway noises. Abdomen: Soft, nontender, nondistended. Laboratory: Most of his a.m. labs are still pending. Reviewed his ABG. ASSESSMENT AND PLAN: A 71-year-old, male status post exploratory laparotomy and small- bowel resection. 1. Exploratory laparotomy. At this time, patient had the majority of the small bowel removed. He, at best, has 60 cm remaining in his intestinal tract. I am concerned that he will likely develop short gut. He is on total parenteral nutrition. I did reconnect him, placed an anastomosis, and had a lengthy discussion with the family yesterday about the potential of this anastomosis breaking down. We will need to monitor him closely. At this point, continue total parenteral nutrition and monitor him closely. 2. Severe protein malnutrition. At this point, continue total parenteral nutrition. 3. Leukocytosis, likely related to ischemic bowel. 4. Acute renal failure. We will follow up with the recommendations from Nephrology. cc: Zion Saucedo MD
--- NOTE | 2017-02-14 07:00 | Diag Imaging Result Doc PS360 ---
EXAM: CHEST-1 VIEW HISTORY: SOB TECHNIQUE: Erect AP portable at 0510 COMMENT: There is an endotracheal tube with its tip at thoracic inlet. There is an NG tube which passes below the diaphragm. There is cardiomegaly. There is atelectasis versus pneumonia in the left lower lobe. There may also be a left pleural effusion. Compared to 02/13/2017 there has been no appreciable change. IMPRESSION: Stable. Electronically signed by Darwin Dang 02/14/2017 6:58 AM
[2017-02-14] MEDS ORDERED: HEPARIN IV PRN (07:08)
[2017-02-14] MEDS ORDERED: NS 2,000 ML MISC PRN (07:08)
[2017-02-14] MEDS ORDERED: TIGHT: 0.2 ML/HR MISC PRN (07:08)
[2017-02-14 07:13] LABS: BASO% 0.1 % (0.0-0.8); HEMATOCRIT 26.9 % (42.0-52.0); HEMOGLOBIN 8.1 g/dL (14.0-18.0); IMM GRAN# 0.15 X1000 (0.0-0.04); IMM GRAN% 0.7 % (0.0-0.5); LYMPH# 0.39 X1000 (1.2-3.4); LYMPH% 1.8 % (20.5-51.1); MANUAL DIFF NEEDED? YES; MCH 19.1 PG (27-31); MCHC 30.1 g/dL (33-37); MCV 63.3 FL (81-99); MONO# 0.49 X1000 (0.11-0.59); MONO% 2.3 % (1.7-9.3); NEUT% 95.1 % (42.2-75.2); PLT 218 X1000 (130-400); RBC 4.25 XMIL (4.7-6.1)
[2017-02-14 07:41] LABS: MAGNESIUM 2.4 mg/dL (1.5-2.7)
[2017-02-14] MEDS: COREG PO SCH ×2 (08:08→20:59)
[2017-02-14] MEDS: PRAVACHOL PO SCH (08:08)
[2017-02-14] MEDS: RANEXA PO SCH (08:09)
[2017-02-14] MEDS ORDERED: ALBUMIN 25% IV PRN (08:22)
[2017-02-14 08:32] LABS: ALBUMIN 1.5 g/dL (3.5-5.0); POTASSIUM 4.4 mmol/L (3.5-5.1); TOTAL BILIRUBIN 1.22 mg/dL (0.20-1.00); TOTAL PROTEIN 3.5 g/dL (6.3-8.3)
[2017-02-14 08:39] LABS: BANDS 2 % (0-1); LYMPHS 2 % (21-51); MONO 4 % (1-9)
[2017-02-14 08:40] LABS: HYPOCHROM 2+; LARGE PLATELETS OCCASIONAL; TARGET CELLS OCCASIONAL
[2017-02-14 09:00] LABS: CALCIUM 6.9 mg/dL (8.8-10.2)
[2017-02-14] MEDS ORDERED: SODIUM CHLORIDE 0.9% 20 ML ONE (09:38)
[2017-02-14] MEDS ORDERED: STERILE WATER INJ. ONE ×2 (09:38→18:25)
[2017-02-14] MEDS ORDERED: AMIDATE ONE (09:39)
[2017-02-14] MEDS ORDERED: EPHEDRINE ONE (09:39)
[2017-02-14] MEDS ORDERED: XYLOCAINE-MPF 2% ONE (09:39)
[2017-02-14] MEDS ORDERED: QUELICIN (DOSE) ONE (09:40)
[2017-02-14] MEDS ORDERED: 1/2 NS 500 ML ONE (09:40)
[2017-02-14] MEDS ORDERED: LR 1,000 ML ONE (10:14)
[2017-02-14] MEDS ORDERED: CALCIUM CHLORIDE SYRINGE ONE (10:14)
[2017-02-14] MEDS: PROTONIX IV SCH ×2 (10:23→23:00)
[2017-02-14] MEDS: LEVAQUIN 250 MG/D5W 250 MG/50 ML IVPB IV SCH (10:23)
[2017-02-14] MEDS: SODIUM CHLORIDE 0.9% INJ SCH (10:23)
--- NOTE | 2017-02-14 11:01 | PROGRESS NOTE ---
DATE: 02/14/2017 TIME SEEN: 0705. SUBJECTIVE: Mr. Pereira is resting quietly in bed. He remains ventilator dependent with sedation. OBJECTIVE: Vital signs: His most recent vital signs, temperature 97.8 degrees , blood pressure 117/46, heart rate 67, respirations are 16. He is on 50% FiO2. Last recorded saturation 99%. He has had 2,989 in. He has had 3085 out. He is basically euvolemic in the last 24 hours. He has started making urine. It has picked up to over 3 L. Labs: A.m. labs, sodium 138, potassium 4.4, chloride is 103, CO2 23, BUN 86, creatinine 1.4, glucose 322. His anion gap is 12. His calcium is 6.9. His albumin is 1.5, phosphorus 2.9, magnesium 2.4. His corrected calcium is 8.9. His white count 21.65, hemoglobin 8.1, hematocrit is 26.9, platelet count is 218 ,000. Patient has had a chest x-ray this a.m. showing stable chest. PHYSICAL EXAMINATION: General: This is a 71-year-old white male. He is currently resting in bed. He is ventilator dependent. He is in no acute distress. Skin: Warm and dry. HEENT: Normocephalic, atraumatic. Conjunctivae pale. He has EPHRAIM, though sluggish. Neck: Supple. Trachea midline. Unable to determine JVD secondary to patient positioning with tubing straps. Cardiovascular: He has an irregular rate and rhythm. He has a positive S4. Lungs: Clear to auscultation anterior with ventilation per vent with assist. Equal excursion. Abdomen: Midline abdominal incision is covered with dressing. This is dry and intact without any drainage. Genitourinary: Rodriguez catheter is in place. Large amount out. Clear yellow urine. Extremities: Have trace edema. No clubbing or cyanosis. Neurological: As above. ASSESSMENT AND PLAN: 1. Acute kidney injury. Patient has undergone 2 dialysis treatments. He is status post abdominal surgery for ischemic bowel. Urine output has improved. His creatinine and BUN has improved without dialysis in the last 24 hours. We will hold dialysis today. We will continue to monitor daily labs. He is not in any fluid overload at this time. Remains on Solu-Cortef support. No indications for intervention today. 2. Electrolytes and acid-base balance. Patient has mild hypokalemia but he also has hypoalbuminemia with a correction calcium level in the 8's. Patient has been given calcium gluconate by primary care team. 3. Acid-base balance. This is stable. 4. Fluid volume overload. Patient's BUN has picked up. He remains on TPN with lipids. 5. Sepsis with ischemic bowel. This is followed by Dr. Saucedo. 6. Anemia. This is stable. I would like to thank you for allowing us to follow with this patient. Seen, data reviewed, discussed with Lance Lund on 02/14/17. I agree with the above assessment and plan of care. rg Dictated by YOHAN Lawrence for Alan Lopez MD cc: YOHAN Lawrence MD [facility]
--- NOTE | 2017-02-14 11:31 | PROGRESS NOTE ---
DATE: 02/14/2017 SUBJECTIVE: Patient is sedated and intubated. OBJECTIVE: Vital Signs: Temperature 97.8 degrees, heart rate 67, respiratory rate 16, blood pressure 117/46 and O2 saturation 99% on mechanical ventilator. General Examination: This patient needs to be intubated. HEENT: Head is normocephalic, atraumatic. Anicteric sclerae and pale conjunctivae. Mucous membranes dry. Patient intubated. Pupils equal, round, reactive to light and accommodation. Neck: Supple. No JVD noted. No carotid bruits. No lymphadenopathy. No thyromegaly. Cardiovascular: S1, S2 heard. No murmurs, gallops, or rubs. Regular rate and rhythm. Respiratory: Coarse breath sounds in both bases. Patient is not using any accessory muscles or work of breathing. Abdomen: Soft, there is a midline surgical wound covered by dressing. Dry and clean. Extremities: No clubbing, cyanosis, or edema. Peripheral pulses present in both legs. Neurological: Patient is sedated and intubated. LABORATORY DATA: White cell count 21.65, hemoglobin 8.1, hematocrit 26.9, platelets 218,000. ABG shows pH 7.33, pCO2 54, PO2 82. Creatinine 1.4. ASSESSMENT AND PLAN: 1. Septic shock secondary to ischemic bowel disease and also pneumonia. Patient currently is on 1 dose of pressors PE. We are trying to wean off this medication because it is not going to help with ischemic bowel disease. Because Dr. Sacuedo from General Surgery is following this patient. 2. Ischemic bowel disease. So far, after 2 times this patient went to the OR, according to Dr. Saucedo, 60 cm of small bowel intestine is left so he is a high risk to have rupture of the anastomoses and also risks of short-gut syndrome. We will follow recommendations from general surgery. 3. Acute kidney injury. Receiving hemodialysis. 4. Suspected gastrointestinal bleeding. Hemoglobin is stable so far. 5. The left lower lobe pneumonia. Patient is on antibiotics as above. In this case, is cefepime and Zyvox. Also, we will continue with parenteral nutrition as well. cc: Manny Sanchez MD
[2017-02-14] MEDS: FENTANYL 1,000 MICROGM in NS 80 ML IV SCH (12:48)
[2017-02-14] MEDS: MAXIPIME 1 GM/NS 1 GM/50 ML IVPB IV SCH (16:23)
[2017-02-14] MEDS: LEVOPHED 8 MG in D5 1/2 NS 250 ML IV SCH (18:32)
[2017-02-14] MEDS ORDERED: M V I IV SCH ×13 (20:00→21:00)
[2017-02-14] MEDS ORDERED: [UNRECOGNIZED DRUG - OTHER] IV SCH ×6 (20:00)
[2017-02-14] MEDS ORDERED: MAGNESIUM SULFATE IV SCH ×13 (20:00→21:00)
[2017-02-14] MEDS ORDERED: TPN ELECTROLYTES IV SCH ×13 (20:00→21:00)
[2017-02-14] MEDS: DILAUDID IV PRN (20:20)
[2017-02-14] MEDS: LIPOSYN 20% 250 ML IV SCH (20:59)
[2017-02-14] MEDS ORDERED: [UNRECOGNIZED DRUG - OTHER] IV SCH ×7 (21:00)
[2017-02-14] MEDS ORDERED: NS 500 ML ONE (21:30)
[2017-02-15] MEDS: ZYVOX 600 MG/D5W 600 MG/300 ML IVPB IV SCH ×2 (01:01→16:08)
[2017-02-15] MEDS: SOLU-CORTEF IV SCH ×4 (01:58→20:42)
[2017-02-15] MEDS: HUMALOG SUBQ SCH ×6 (01:59→20:36)
[2017-02-15] MEDS: LEVOPHED 8 MG in D5 1/2 NS 250 ML IV SCH (02:02)
[2017-02-15] MEDS ORDERED: HUMALOG SUBQ ONE ×2 (02:15→07:04)
[2017-02-15 04:29] LABS: ALLEN TEST YES; BE 0.7 mmoll (-3.0-3.0); BLOOD TYPE ARTERIAL; DRAW SITE R RADIAL; METHB 0.5 % (0.0-1.5); O2(CT) 11.1 mL/dL (15.0-23.0); PO2(98.6) 80 mmHg (60-100); SAMPLE BLOOD; SRATE 12 BPM; THB 8.3 g/dL (11.5-17.4); TVOL 550 mL
[2017-02-15 04:30] LABS: MODALITY VENTILATOR
[2017-02-15 04:31] LABS: PCO2(98.6) 56 mmHg (35-45)
[2017-02-15 05:40] LABS: BASO% 0.1 % (0.0-0.8); EOS# 0.01 X1000 (0.0-0.7); EOS% 0.1 % (0.0-10.0); HEMATOCRIT 21.6 % (42.0-52.0); HEMOGLOBIN 6.2 g/dL (14.0-18.0); IMM GRAN# 0.15 X1000 (0.0-0.04); IMM GRAN% 0.8 % (0.0-0.5); LYMPH# 0.47 X1000 (1.2-3.4); LYMPH% 2.4 % (20.5-51.1); MANUAL DIFF NEEDED? YES; MCH 18.8 PG (27-31); MCHC 28.7 g/dL (33-37); MCV 65.7 FL (81-99); MONO# 0.46 X1000 (0.11-0.59); MONO% 2.3 % (1.7-9.3); NEUT% 94.3 % (42.2-75.2); PLT 200 X1000 (130-400); RBC 3.29 XMIL (4.7-6.1)
[2017-02-15 05:50] LABS: MAGNESIUM 2.9 mg/dL (1.5-2.7); PREALBUMIN 12.8 mg/dL (20-40)
[2017-02-15 05:53] LABS: ALBUMIN 1.5 g/dL (3.5-5.0); CALCIUM 7.5 mg/dL (8.8-10.2); POTASSIUM 4.7 mmol/L (3.5-5.1)
[2017-02-15] MEDS: VERSED 100 MG in NS 80 ML IV SCH (06:29)
[2017-02-15] MEDS: FENTANYL 1,000 MICROGM in NS 80 ML IV SCH (06:29)
[2017-02-15] MEDS: QUESTRAN PO SCH ×2 (06:30→18:05)
[2017-02-15 06:55] LABS: MONO 1 % (1-9)
[2017-02-15 06:56] LABS: HYPOCHROM 2+
[2017-02-15] MEDS ORDERED: HUMALOG SUBQ SCH ×2 (07:01→11:10)
--- NOTE | 2017-02-15 07:01 | PROGRESS NOTE ---
DATE: 02/15/2017 SUBJECTIVE: Discussed patient's course with the nurse overnight. He is still on pressors, although they are still decreasing the pressors at this time. Otherwise, no major changes reported by the nursing staff. OBJECTIVE: Vital Signs: Patient is currently afebrile. Most recent heart rate in the 50s, respiratory rates per the ventilator, blood pressure in the low 100s systolic, still on Levophed. General Examination: Sedated, on the ventilator. Cardiovascular: Regular rate and rhythm. Lungs: Referred airway noises. Abdomen: Soft, nontender, nondistended. Incision is healing well. Laboratory: His white blood cell count is 19, hematocrit is 21.6. ABG reviewed. Lactate is 1.7. Patient's base deficit has been resolved. Labs reviewed. Of note, his glucose is 407. ASSESSMENT/PLAN: A 71-year-old, male status post exploratory laparotomy and small-bowel resection. 1. Exploratory laparotomy. At this time, there is still a high concern of issues with his anastomosis and having short syndrome. He is on total parenteral nutrition. We will have to monitor him closely. 2. Severe protein malnutrition. At this time, he is on total parenteral nutrition. Would recommend continuing that. 3. Leukocytosis, seems to be slightly improving. 4. Acute renal failure. At this time, we will follow up with the recommendations by nephrology. 5. At this time, his hematocrit has gone down to 21.6, his platelet count is 20,000. I do suspect that he needs some degree of deep venous thrombosis prophylaxis. We will make sure the patient is on sequential compression device hose. I suspect he is probably not a candidate for anticoagulation at this time with heparin given his hematocrit. cc: Zion Saucedo MD
--- NOTE | 2017-02-15 07:33 | Diag Imaging Result Doc PS360 ---
EXAM: CHEST-1 VIEW INDICATION: SOB TECHNIQUE: One view COMPARISON: 02/14/2017 FINDINGS: ET tube and left central line are in stable position. There is a stable NG tube. Mild left lower lobe opacity suggesting atelectasis versus infiltrate is unchanged. There is suggestion of the left pleural effusion that is unchanged. There are no new consolidations. Cardiac silhouette is stable. IMPRESSION: Grossly stable chest. Electronically signed by Juaquin Melendez 02/15/2017 7:30 AM
[2017-02-15] MEDS ORDERED: STERILE WATER INJ. ONE (08:18)
[2017-02-15] MEDS: RANEXA PO SCH (08:23)
[2017-02-15] MEDS: PRAVACHOL PO SCH (08:23)
[2017-02-15] MEDS: COREG PO SCH ×2 (08:23→20:42)
--- NOTE | 2017-02-15 09:56 | PROGRESS NOTE ---
DATE: 02/15/2017 SUBJECTIVE: This patient is still on mechanical ventilation, sedated and intubated. No acute events overnight. OBJECTIVE: Vital Signs: Temperature 96.8 degrees, pulse 55, respiratory rate 14, blood pressure 114/42, oxygen saturation 98 on mechanical ventilation, 40% oxygen flow. HEENT: Head normocephalic. No trauma. PERRLA. Neck: Supple. No JVD. No masses. Central trachea. Cardiovascular: RRR. No murmurs. Chest: Decreased breath sounds at the bases. Patient is not using any accessory muscles. He is on mechanical ventilation. Abdomen: Soft. There is a midline surgical wound that looks clean, dry, and intact. Extremities: No edema. No clubbing. No cyanosis. Neurological Examination: The patient is a sedated and intubated. Laboratory: WBC 19.7, hemoglobin 6.2, hematocrit 21.6, platelets 200,000. Sodium 133, potassium 4.7, chloride 99, bicarbonate 25, BUN 99, creatinine 1.4, glucose 407, calcium 7.5, magnesium 2.8, albumin 1.5. ASSESSMENT AND PLAN: 1. 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 Patient currently is on pressors. We are going to continue trying to wean off this patient off pressors. Surgery department is following this patient. 2. Ischemic bowel disease. Surgery department is following this patient. As per surgery, 60 cm remaining in his intestinal tract of small bowel. This is concerning because this patient can have issues with his anastomosis and also having short bowel syndrome. 3. Acute kidney injury. This patient received hemodialysis already. He is making urine. The BUN and creatinine have been stable for the past couple days. I do not think he is going to be dialyzed but nephrology department is following this patient. His urine output is 1.3 L. 4. Anemia, likely related with acute blood loss. His hemoglobin today is 6.2. I will transfuse this patient with 1 unit of packed RBCs. 5. Suspected gastrointestinal bleed. Like I mentioned before, his hemoglobin is 6.2. He will be transfused. He has a positive result that showed positive blood in the stool but this could be also related to previous surgery. I will continue with proton pump inhibitors, and monitoring the hemoglobin and hematocrit on this patient. 6. Left lower lobe pneumonia. Continue with antibiotics. He is on mechanical ventilation. 7. Severe protein malnutrition. He is on total parenteral nutrition. I will continue with the same management. 8. Leukocytosis, likely secondary to septic shock. It has been slowly improving. 9. Gastrointestinal prophylaxis. This patient is on Protonix. CRITICAL CARE TIME: 45 minutes. cc: Ashish Driver MD
--- NOTE | 2017-02-15 09:57 | PROGRESS NOTE ---
DATE: 02/15/2017 SUBJECTIVE: He remains on the ventilator and sedated. OBJECTIVE: Vital Signs: Blood pressure 114/42, heart rate 55, respirations 14, afebrile. Intake 2.5 L. Output 1.7 L. PHYSICAL EXAMINATION: No acute distress. Skin is warm and dry. Conjunctivae are pink. Neck veins are not appreciated. Trachea is midline. Heart is regular without gallops. Lungs have equal breath sounds. No crackles or wheezes. Abdomen soft, quiet. Modestly tender. Extremities have 1+ edema. No clubbing or cyanosis. LABORATORY DATA: Sodium 133, potassium 4.7, chloride 99, bicarbonate 25. BUN 99, creatinine 1.4. Hemoglobin 6.2. IMPRESSION: Acute kidney injury, resolved. Baseline creatinine is 1, and his current creatinine 1.4. His BUN has risen in the last 24 hours. He is receiving TPN. He has also had a fall in his hemoglobin which might raise concern for gastrointestinal bleeding. He has not passed any blood per rectum however. His fluid balance has been modestly positive and he has had good urine output. Electrolytes and acid-base are in target. I will sign off, but if the situation warrants, we will be glad to see him again at any time. cc: Alan Lopez MD
[2017-02-15] MEDS ORDERED: NS 500 ML ONE (10:00)
[2017-02-15] MEDS: SODIUM CHLORIDE 0.9% INJ SCH (10:02)
[2017-02-15] MEDS: PROTONIX IV SCH ×2 (10:02→21:00)
[2017-02-15] MEDS: LEVAQUIN 250 MG/D5W 250 MG/50 ML IVPB IV SCH (10:02)
[2017-02-15] MEDS ORDERED: LANTUS SUBQ ONE (11:03)
[2017-02-15] MEDS: MAXIPIME 1 GM/NS 1 GM/50 ML IVPB IV SCH (16:05)
[2017-02-15] MEDS: DILAUDID IV PRN ×2 (16:05→20:37)
[2017-02-15] MEDS: LIPOSYN 20% 250 ML IV SCH (20:42)
[2017-02-15] MEDS ORDERED: MAGNESIUM SULFATE IV SCH ×6 (21:00)
[2017-02-15] MEDS ORDERED: [UNRECOGNIZED DRUG - OTHER] IV SCH ×6 (21:00)
[2017-02-15] MEDS ORDERED: M V I IV SCH ×6 (21:00)
[2017-02-15] MEDS ORDERED: TPN ELECTROLYTES IV SCH ×6 (21:00)
[2017-02-16] MEDS: ZYVOX 600 MG/D5W 600 MG/300 ML IVPB IV SCH ×2 (01:53→14:15)
[2017-02-16] MEDS: HUMALOG SUBQ SCH ×6 (01:53→20:49)
[2017-02-16] MEDS: SOLU-CORTEF IV SCH ×4 (02:00→20:49)
[2017-02-16 04:12] LABS: ALLEN TEST YES; BE 3.5 mmoll (-3.0-3.0); BLOOD TYPE ARTERIAL; DRAW SITE R RADIAL; METHB 0.2 % (0.0-1.5); O2(CT) 11.1 mL/dL (15.0-23.0); PO2(98.6) 80 mmHg (60-100); SAMPLE BLOOD; SAO2 97.8 % (95.0-100.0); SRATE 12 BPM; THB 8.2 g/dL (11.5-17.4); TVOL 550 mL; pH(98.6) 7.33 (7.35-7.45)
[2017-02-16 04:15] LABS: MODALITY VENTILATOR
[2017-02-16 04:16] LABS: PCO2(98.6) 57 mmHg (35-45)
[2017-02-16 06:00] LABS: BASO% 0.1 % (0.0-0.8); EOS# 0.01 X1000 (0.0-0.7); HEMATOCRIT 27.1 % (42.0-52.0); IMM GRAN# 0.14 X1000 (0.0-0.04); IMM GRAN% 0.7 % (0.0-0.5); LYMPH# 0.39 X1000 (1.2-3.4); LYMPH% 1.9 % (20.5-51.1); MANUAL DIFF NEEDED? YES; MCH 20.3 PG (27-31); MCHC 29.5 g/dL (33-37); MCV 68.6 FL (81-99); MONO# 0.27 X1000 (0.11-0.59); MONO% 1.3 % (1.7-9.3); PLT 202 X1000 (130-400); RBC 3.95 XMIL (4.7-6.1)
[2017-02-16 06:10] LABS: CALCIUM 7.9 mg/dL (8.8-10.2); POTASSIUM 5.2 mmol/L (3.5-5.1)
--- NOTE | 2017-02-16 06:45 | PROGRESS NOTE ---
DATE: 02/16/2017 SUBJECTIVE: Discussed patient's course overnight with the nurse. He has been on pressors for most of the night but they have stopped it transiently to see how well he would do. Overall, his dependency on pressors has decreased. He was transfused a unit yesterday. Otherwise, no major changes reported by the nursing staff. There is a note that he might have a weaning trial today. OBJECTIVE: Vital Signs: Patient is currently afebrile. Most recent pulse 55, respiratory rate 12, blood pressure 109/49. General Examination: Sedated on the ventilator. Cardiovascular: Regular rate and rhythm. Lungs: Referred airway noises. Abdomen: Soft, nondistended. Incision is healing well. Laboratory: White blood cell count is 20.1, hematocrit 27.1, platelet count 202 ,000. Remainder of labs reviewed. Of note, his prealbumin yesterday was 12.8 but his albumin was 1.5. ASSESSMENT AND PLAN: A 71-year-old, male status post exploratory laparotomy with small bowel resection. 1. Exploratory laparotomy. At this time, there is still a high chance of the anastomosis having a leak given the pressors and having short-gut syndrome. He is on total parenteral nutrition. We will have to monitor him closely. Once he is potentially off of pressors, could start trickling tube feeds. If he is going to be extubated, we would want to hold off and make sure that he is tolerating extubation before attempting enteral nutrition. 2. Severe protein malnutrition. At this time, patient is on total parenteral nutrition. We will continue that for now. 3. Leukocytosis. There has been a slight increase but otherwise essentially stable. He is on antibiotics. 4. Acute renal failure. We will follow up with the recommendation from nephrology. It sounds like it has improved overall and may not need additional therapy. 5. Anemia. His hematocrit had gone down to 21. His platelet count is still 200 ,000. He was transfused and he responded with the blood transfusion very well. We will need to continue to monitor his hematocrit closely. cc: MD JIM De La Cruz
[2017-02-16 07:18] LABS: LYMPHS 4 % (21-51); MONO 1 % (1-9)
[2017-02-16 07:19] LABS: HYPOCHROM OCCASIONAL
--- NOTE | 2017-02-16 07:20 | Diag Imaging Result Doc PS360 ---
EXAM: CHEST-1 VIEW INDICATION: SOB TECHNIQUE: One view COMPARISON: 02/15/2017 FINDINGS: The left central line and ET tube are in stable position. An NG tube is stable. Vague opacity at the left lung bases is essentially unchanged. There are no new consolidations. There is stable cardiomegaly. IMPRESSION: Stable chest. Electronically signed by Juaquin Melendez 02/16/2017 7:18 AM
[2017-02-16] MEDS: FENTANYL 1,000 MICROGM in NS 80 ML IV SCH (08:41)
[2017-02-16] MEDS: QUESTRAN PO SCH ×2 (08:41→18:09)
[2017-02-16] MEDS: COREG PO SCH ×2 (08:41→20:49)
[2017-02-16] MEDS ORDERED: LANTUS SUBQ SCH (09:00)
[2017-02-16] MEDS: RANEXA PO SCH (09:10)
[2017-02-16] MEDS: PRAVACHOL PO SCH (09:11)
[2017-02-16] MEDS ORDERED: INSULIN PEN NEEDLES ONE (09:24)
[2017-02-16] MEDS: LEVAQUIN 250 MG/D5W 250 MG/50 ML IVPB IV SCH (09:30)
[2017-02-16] MEDS: SODIUM CHLORIDE 0.9% INJ SCH (09:31)
[2017-02-16] MEDS: PROTONIX IV SCH ×2 (09:31→21:34)
--- NOTE | 2017-02-16 10:26 | PROGRESS NOTE ---
DATE: 02/16/2017 SUBJECTIVE: This patient is still on mechanical ventilation, sedated and intubated. No acute events overnight. He has been off pressors since 6 a.m. We will continue with the same management for now. OBJECTIVE: Vital Signs: Temperature 96.6 degrees, pulse 56, respiratory rate 14, blood pressure 112/46. Oxygen saturation 98 on mechanical ventilation, 40% FiO2. HEENT: Head normocephalic. No trauma. PERRLA. Neck: Supple. No JVD. No masses. Central trachea. Cardiovascular: RRR. No murmurs. Chest: Decreased breath sounds at the bases. Patient is on mechanical ventilation. Abdomen: Soft. There is a midline surgical wound that looks clean, dry, and intact. Extremities: No edema. No clubbing. No cyanosis. Neurological Examination: The patient is sedated and intubated. Laboratory: WBC 20.1, hemoglobin 8, hematocrit 27.1, platelets 202,000. Sodium 135, potassium 5.2, chloride 101, bicarbonate 25, BUN 109, creatinine 1.2, glucose 344, phosphorus 3.5, magnesium 3. ASSESSMENT AND PLAN: 1. 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 This patient has been on pressors but it has been stopped since 6 a.m. and the blood pressure has been in the 110s. Surgery department is following this patient. We will continue following their recommendations. 2. Ischemic bowel disease. Surgery department removed part of his bowel. Apparently 60 cm remaining in his intestinal tract of bowel. This is concerning because this patient can have issues with this anastomosis and also have short bowel syndrome. 3. Acute kidney injury. This is getting much better. The urine output is improving. We will continue to monitor. Nephrology department is following this patient. 4. Anemia, likely related with acute blood loss. This patient was transfused yesterday. Today, the hemoglobin is better. 5. Suspected gastrointestinal bleed. Like I mentioned before, this patient was transfused yesterday. We have a positive Hemoccult but that blood in the stool also can be related with previous surgery. I will continue for now with proton pump inhibitors and monitoring the hemoglobin and hematocrit on this patient. 6. Left lower lobe pneumonia. Continue with antibiotics. He is on mechanical ventilation. 7. Severe protein malnutrition. He is on total parenteral nutrition. I will continue with the same management for now. 8. Leukocytosis, likely secondary to septic shock. This patient also has been on Solu-Cortef. 9. Type 2 diabetes. I increased the dose of Lantus to 60. We will monitor his blood sugar during the day. I will readjust the insulin as needed. 10. Gastrointestinal prophylaxis. This patient is on Protonix. CRITICAL CARE TIME: 40 minutes. cc: Ashish Driver MD
[2017-02-16] MEDS ORDERED: ROMAZICON IV ONE (11:58)
[2017-02-16] MEDS ORDERED: NARCAN IV ONE (11:58)
[2017-02-16 13:42] LABS: ALLEN TEST YES; BE 5.3 mmoll (-3.0-3.0); BLOOD TYPE ARTERIAL; DRAW SITE R RADIAL; METHB 1.1 % (0.0-1.5); O2(CT) 12.3 mL/dL (15.0-23.0); PCO2(98.6) 47 mmHg (35-45); PO2(98.6) 62 mmHg (60-100); SAMPLE BLOOD; SAO2 94.2 % (95.0-100.0); THB 9.5 g/dL (11.5-17.4); pH(98.6) 7.42 (7.35-7.45)
[2017-02-16 13:44] LABS: MODALITY VENTILATOR
[2017-02-16] MEDS ORDERED: CORDARONE 150 MG/D5W 150 MG/100 ML IV.SOLN IV ONE (14:07)
[2017-02-16] MEDS ORDERED: CORDARONE 360 MG/D5W 360 MG/200 ML IV.SOLN IV ONE (14:07)
[2017-02-16] MEDS: MAXIPIME 1 GM/NS 1 GM/50 ML IVPB IV SCH (16:41)
[2017-02-16] MEDS: DILAUDID IV PRN ×2 (16:41→20:00)
[2017-02-16] MEDS: HALDOL IV PRN (19:30)
[2017-02-16] MEDS ORDERED: CORDARONE 540 MG in D5W 289.2 ML IV ONE (20:00)
[2017-02-16] MEDS: LIPOSYN 20% 250 ML IV SCH (20:45)
[2017-02-16] MEDS: [UNRECOGNIZED DRUG - NUTRITION] IV SCH ×5 (21:20)
[2017-02-17] MEDS: DILAUDID IV PRN ×4 (00:20→21:35)
[2017-02-17] MEDS: ZYVOX 600 MG/D5W 600 MG/300 ML IVPB IV SCH ×2 (00:20→13:33)
[2017-02-17] MEDS: HUMALOG SUBQ SCH ×6 (00:24→20:34)
[2017-02-17] MEDS: SOLU-CORTEF IV SCH ×4 (03:00→20:31)
[2017-02-17 04:07] LABS: ALLEN TEST YES; BLOOD TYPE ARTERIAL; DRAW SITE R RADIAL; O2(CT) 14.9 mL/dL (15.0-23.0); PCO2(98.6) 47 mmHg (35-45); PO2(98.6) 84 mmHg (60-100); SAMPLE BLOOD; SAO2 97.2 % (95.0-100.0); THB 11.1 g/dL (11.5-17.4); pH(98.6) 7.43 (7.35-7.45)
[2017-02-17 04:08] LABS: MODALITY VENTILATOR
[2017-02-17] MEDS: FENTANYL 1,000 MICROGM in NS 80 ML IV SCH (05:38)
[2017-02-17 06:06] LABS: EOS# 0.01 X1000 (0.0-0.7); HEMATOCRIT 28.1 % (42.0-52.0); HEMOGLOBIN 8.5 g/dL (14.0-18.0); IMM GRAN# 0.13 X1000 (0.0-0.04); IMM GRAN% 0.6 % (0.0-0.5); LYMPH% 1.9 % (20.5-51.1); MANUAL DIFF NEEDED? YES; MCH 20.7 PG (27-31); MCHC 30.2 g/dL (33-37); MCV 68.5 FL (81-99); MONO# 0.36 X1000 (0.11-0.59); MONO% 1.7 % (1.7-9.3); NEUT% 95.8 % (42.2-75.2); PLT 223 X1000 (130-400)
[2017-02-17 06:20] LABS: BANDS 12 % (0-1); HYPOCHROM 2+; LYMPHS 2 % (21-51); MONO 2 % (1-9); TARGET CELLS OCCASIONAL
[2017-02-17 06:25] LABS: MAGNESIUM 2.5 mg/dL (1.5-2.7)
[2017-02-17 06:48] LABS: AGAP 8; BUN 78 mg/dL (8-22); CHLORIDE 106 mmol/L (98-107); COSMO 318; POTASSIUM 4.7 mmol/L (3.5-5.1); SODIUM 144 mmol/L (136-145); TCO2 30 mmol/L (25-35)
--- NOTE | 2017-02-17 06:54 | PROGRESS NOTE ---
DATE: 02/17/2017 SUBJECTIVE: The patient has been off pressors for at least 24 hours. He did not pass his weaning trial, but there is an attempt to try to do it today. I did discuss his overall case with his nurse. He did have a bowel movement also recorded. OBJECTIVE: Vital Signs: The patient is currently afebrile. His vital signs have been stable. General: Sedated on the ventilator. Cardiovascular: Regular rate and rhythm. Lungs: Referred airway noises. Abdomen soft, nondistended. Incision is healing well. Bowel sounds auscultated. LABORATORY: White blood cell count is 21.3 which is up from 20.1. Hematocrit is 28, platelet count 223,000. Remainder of labs reviewed. ASSESSMENT AND PLAN: A 71-year-old male status post exploratory laparotomy with small bowel resection. 1. Exploratory laparotomy. At this time, the patient is off pressors for 24 hours, which is a good sign. I am still concerned about the possibility of a leak in his anastomosis and having short-gut syndrome. His white blood cell count is slightly elevated from yesterday but, otherwise, his overall clinical picture has seemed to improve somewhat. He is on total parenteral nutrition and will continue this. Hopefully, he will be extubated today, and we can monitor him, so I would like to start enteral nutrition here soon. 2. Severe protein malnutrition. At this time, patient is on total parenteral nutrition. 3. Leukocytosis. He does have an increase. He is on antibiotics. 4. Acute renal failure. At this time, may hold off on any dialysis. 5. Anemia. At this time, his hematocrit is 28; will monitor. cc: Zion Saucedo MD
[2017-02-17] MEDS: QUESTRAN PO SCH ×2 (07:23→18:20)
--- NOTE | 2017-02-17 07:31 | Diag Imaging Result Doc PS360 ---
EXAM: CHEST-1 VIEW HISTORY: SOB TECHNIQUE: AP portable at 0500 COMMENT: There is an endotracheal tube with its tip at thoracic inlet. There is a left internal jugular central venous catheter with its tip in the superior vena cava. There is a pacemaker on the right. There is an NG tube with its tip in the stomach. There is cardiomegaly. There may be mild interstitial pulmonary edema. If anything, this appears to have improved slightly since 02/16/2017. IMPRESSION: Cardiomegaly. Improved pulmonary edema. Electronically signed by Darwin Dang 02/17/2017 7:29 AM
[2017-02-17] MEDS: HALDOL IV PRN ×2 (08:13→15:36)
[2017-02-17] MEDS: RANEXA PO SCH ×2 (09:14→09:28)
[2017-02-17] MEDS: PRAVACHOL PO SCH (09:14)
[2017-02-17] MEDS: LEVAQUIN 250 MG/D5W 250 MG/50 ML IVPB IV SCH (09:27)
[2017-02-17] MEDS: SODIUM CHLORIDE 0.9% INJ SCH (09:29)
[2017-02-17] MEDS: PROTONIX IV SCH ×2 (09:29→20:35)
[2017-02-17] MEDS: COREG PO SCH ×2 (09:40→20:34)
[2017-02-17] MEDS: LANTUS SUBQ SCH (09:53)
[2017-02-17] MEDS ORDERED: CALMOSEPTINE OINTMENT TOP PRN (10:11)
[2017-02-17] MEDS: CALMOSEPTINE OINTMENT TOP SCH ×3 (13:34→20:32)
--- NOTE | 2017-02-17 14:46 | PROGRESS NOTE ---
DATE: 02/17/2017 SUBJECTIVE: This patient is still on mechanical ventilation, he is not sedated, he is on CPAP mode, no acute events overnight. He has been off pressors since yesterday. We will continue with the same management for now. Hopefully he will be extubated today. OBJECTIVE: Vital Signs: Temperature 98.4 degrees, pulse 88, respiratory rate 17, blood pressure 159/68, oxygen saturation 95% on mechanical ventilation/CPAP machine. HEENT: Head normocephalic. No trauma. PERRLA. Neck: Supple. No JVD. No masses. Central trachea. Cardiovascular: RRR. No murmurs. Chest: Decreased breath sounds at the bases. The patient is placed on mechanical ventilation. Abdomen: Soft. There is a midline surgical wound that looks clean, dry and intact. Extremities: No edema. No clubbing. No cyanosis. Neurological examination: The patient is alert. He is following commands. He is not on any sedation at the moment of my evaluation. LABORATORY: WBC 21.3, hemoglobin 8.5, hematocrit 28.1, platelets 223. Sodium 144, potassium 4.7, chloride 106, bicarbonate 30. BUN 78, creatinine 0.9. Glucose 238. Phosphorus 2.3, magnesium 2.5. ASSESSMENT AND PLAN: 1. 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 This patient has been off pressors since yesterday at 6 a.m. His blood pressure has been stable. Surgery Department is following this patient. 2. Ischemic bowel disease. Surgery Department removed part of his bowel; apparently 60 cm remaining in his intestinal tract of bowel. This is concerning, because he can have an leak at the level of the anastomosis and also he can suffer from short bowel syndrome. 3. Acute kidney injury. This is getting better. The urine output is improving. He is making more urine, so far 3.9 liters. Continue to monitor. 4. Anemia. This is likely related to acute blood loss. Patient was transfused a couple days ago. We will continue to monitor. 5. Suspected gastrointestinal bleed. This is also likely related to previous surgery. Will monitor. 6. Left lower lobe pneumonia. Continue with antibiotics. He is on mechanical ventilation at this moment. CPAP mode. 7. Severe protein calorie malnutrition. Continue with total parenteral nutrition. Once this patient is extubated, we need to start this patient on enteral nutrition. 8. Leukocytosis likely secondary to septic shock. This patient also has been on Solu Cortef. 9. Type 2 diabetes. I increased the dose of Lantus to 80. Will monitor his blood sugar during the day. We will readjust the insulin as needed. 10. Gastrointestinal prophylaxis. Continue with Protonix. CRITICAL CARE TIME: 40 minutes. cc: Ashish Driver MD
[2017-02-17] MEDS: MAXIPIME 1 GM/NS 1 GM/50 ML IVPB IV SCH (15:35)
[2017-02-17] MEDS: CORDARONE 360 MG/D5W 360 MG/200 ML IV.SOLN IV SCH (18:35)
[2017-02-17] MEDS: ZOFRAN IV PRN (20:10)
[2017-02-17] MEDS: LIPOSYN 20% 250 ML IV SCH (20:29)
[2017-02-17] MEDS: [UNRECOGNIZED DRUG - NUTRITION] IV SCH ×5 (20:30)
[2017-02-18] MEDS: DILAUDID IV PRN ×4 (00:24→15:01)
[2017-02-18] MEDS: HUMALOG SUBQ SCH ×6 (00:28→21:10)
[2017-02-18] MEDS: ZYVOX 600 MG/D5W 600 MG/300 ML IVPB IV SCH ×2 (00:28→12:40)
[2017-02-18] MEDS: FENTANYL 1,000 MICROGM in NS 80 ML IV SCH ×2 (00:28→19:34)
[2017-02-18] MEDS: SOLU-CORTEF IV SCH ×4 (03:16→21:06)
[2017-02-18 04:53] LABS: ALLEN TEST YES; BLOOD TYPE ARTERIAL; DRAW SITE R RADIAL; O2(CT) 11.3 mL/dL (15.0-23.0); PO2(98.6) 85 mmHg (60-100); SAMPLE BLOOD; SAO2 98.3 % (95.0-100.0); THB 8.3 g/dL (11.5-17.4); pH(98.6) 7.48 (7.35-7.45)
[2017-02-18 04:54] LABS: MODALITY CANNULA; PCO2(98.6) 51 mmHg (35-45)
[2017-02-18 05:13] LABS: MAGNESIUM 2.1 mg/dL (1.5-2.7)
[2017-02-18 05:14] LABS: AGAP 7; BUN 49 mg/dL (8-22); CHLORIDE 108 mmol/L (98-107); COSMO 316; POTASSIUM 4.3 mmol/L (3.5-5.1); SODIUM 149 mmol/L (136-145); TCO2 34 mmol/L (25-35)
[2017-02-18] MEDS: CORDARONE 360 MG/D5W 360 MG/200 ML IV.SOLN IV SCH ×2 (05:44→17:58)
[2017-02-18 05:53] LABS: BASO% 0.2 % (0.0-0.8); HEMATOCRIT 27.3 % (42.0-52.0); HEMOGLOBIN 8.2 g/dL (14.0-18.0); IMM GRAN# 0.15 X1000 (0.0-0.04); IMM GRAN% 0.8 % (0.0-0.5); LYMPH# 0.53 X1000 (1.2-3.4); LYMPH% 2.9 % (20.5-51.1); MANUAL DIFF NEEDED? YES; MCV 69.8 FL (81-99); MONO% 2.7 % (1.7-9.3); NEUT% 93.4 % (42.2-75.2); PLT 213 X1000 (130-400); RBC 3.91 XMIL (4.7-6.1)
[2017-02-18] MEDS: QUESTRAN PO SCH ×2 (06:53→17:59)
--- NOTE | 2017-02-18 06:56 | PROGRESS NOTE ---
DATE: 02/18/2017 SUBJECTIVE: The patient was extubated yesterday and tolerated it well. He has been at activated for at least 24 hours. Discussed his overall care with the nursing staff. No major issues reported by the nursing staff. He did have a bowel movement yesterday. OBJECTIVE: Vital Signs: Patient is currently afebrile. His vital signs have been stable. He is off pressors. General: Arousable but resting. Cardiovascular: Regular rate and rhythm. Lungs: Some coarse sounds noted. Abdomen: Soft, nondistended. Incision is healing well. Bowel sounds auscultated. LABORATORY: White blood cell count is 18, which is down from 21. Hematocrit 27, platelet count 213,000. ABG reviewed. Of note, patient's pC02 is 51. ASSESSMENT/PLAN: A 71-year-old male status post exploratory laparotomy with small-bowel resection. 1. Exploratory laparotomy. At this time, patient has been off pressors for 48 hours. He has been off the vent for 24. At this time, we will start trickling tube feeds with Glucerna. I will only start it at 15 mL an hour. Would like to see how he tolerates it. There is some concern that he might have short-gut and this could be avoided. We will see how well he is doing. He is having bowel movements so I suspect that he could tolerate the tube feeds. We will need to monitor him closely. My partner, Dr. Urias will be rounding on him this weekend. 2. Severe protein malnutrition. At this time, patient is on TPN. We are starting enteral nutrition. I would like to just trickle the tube feeds for now and see how the patient does clinically. If he seems to stay relatively stable and his respiratory status appears to be stable we could consider advancing it. I do not think his mental status at this point is alert enough to tolerate actual taking food by mouth. 3. Leukocytosis at this time, he has had a decrease. His white blood cell count is down. He is on antibiotics. 4. Acute renal failure. At this time, patient is making urine and nephrology has signed off. We will continue to follow the patient. I appreciate all consultants. cc: Zion Saucedo MD
--- NOTE | 2017-02-18 07:09 | Diag Imaging Result Doc PS360 ---
EXAM: CHEST-1 VIEW HISTORY: SOB TECHNIQUE: AP portable at 0500 COMMENT: There is an NG tube which passes below the diaphragm. There is a left internal jugular central venous catheter with its tip in the superior vena cava. There is ill-defined opacity in the retrocardiac region of the left lower lobe which was also present on 02/17/2017. Overall the appearance of the chest has not changed significantly. IMPRESSION: Atelectasis and/or pneumonia left lower lobe. Electronically signed by Darwin Dang 02/18/2017 7:07 AM
[2017-02-18 07:43] LABS: BANDS 2 % (0-1); EOS 1 % (1-10); HYPOCHROM 1+; LYMPHS 1 % (21-51); MONO 1 % (1-9)
[2017-02-18] MEDS: RANEXA PO SCH (08:46)
[2017-02-18] MEDS: PROTONIX IV SCH ×2 (08:47→21:07)
[2017-02-18] MEDS: PRAVACHOL PO SCH (08:47)
[2017-02-18] MEDS: COREG PO SCH ×2 (08:48→21:07)
[2017-02-18] MEDS: CALMOSEPTINE OINTMENT TOP SCH ×4 (08:49→21:08)
[2017-02-18] MEDS: LANTUS SUBQ SCH (08:58)
[2017-02-18] MEDS: LEVAQUIN 250 MG/D5W 250 MG/50 ML IVPB IV SCH (10:02)
[2017-02-18] MEDS: HALDOL IV PRN (13:22)
--- NOTE | 2017-02-18 13:27 | PROGRESS NOTE ---
DATE: 02/18/2017 SUBJECTIVE: This patient was extubated yesterday. He is doing fine. The oxygen saturation has been stable. Today he is hypernatremic and the blood glucose is 231. I noticed that his home insulin Lantus is around 100 units per day. Here he has been receiving 80. The blood sugar today is 231. I will increase the Lantus to the level of his home medications. Hopefully we are going to be able to start nutrition today, parenteral nutrition, and with that the sodium is going to be corrected. I will repeat a BMP in the afternoon. OBJECTIVE: Vital Signs: Temperature 97.1 degrees, pulse 63, respiratory rate 17, blood pressure 140/63, O2 saturation 95% on 2 L of nasal cannula. HEENT: Head normocephalic. No trauma. PERRLA. Neck: Supple. No JVD. No masses. Central trachea. Cardiovascular: RRR. No murmurs. Chest: Decreased breath sounds at the bases. The patient is on a nasal cannula and the oxygen saturation has been stable. Abdomen: Soft. There is a midline surgical wound that looks clean, dry and intact. No edema. No clubbing. No cyanosis. Neurological: The patient is alert. He is following commands. He is able to say his name and he recognized family members. He moves all 4 extremities. LABORATORY: WBC 18.2, hemoglobin 8.2, hematocrit 27.3, platelets 213,000. Sodium 149, potassium 4.3, chloride 100, a bicarbonate 34, BUN 49, creatinine 0.7, glucose 231, calcium 8. ASSESSMENT AND PLAN: 1. 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 This patient has been off pressors for 48 hours now, the blood pressure has been stable. Surgery Department is following this patient. 2. Ischemic bowel disease. Like I mentioned before, Surgery Department is on board and they removed part of his bowel, apparently 60 cm this patient has left in his intestinal tract of bowel now and this is concerning because he can have a problem with the anastomoses and also he can suffer from short bowel syndrome. 3. Acute kidney injury much better. Basically Nephrology Department signed off. His BUN and creatinine is much better. 4. Anemia likely related to acute blood loss. Patient was transfused 3 days ago. We will continue to monitor. 5. Suspected gastrointestinal bleed. This is most likely related to previous surgery. I do not think this patient has an active bleed but we continue to monitor this patient. 6. Left lower lobe pneumonia. Continue with antibiotics. 7. Severe protein calorie malnutrition. Continue with TPN. This patient recently has been started on tube feeding, we will monitor. 8. Hypernatremia. I will repeat a BMP in the afternoon. We started today this patient on tube feeding. Hopefully this will decrease the amount of sodium. Will monitor. 9. Type 2 diabetes. I will increase the dose of Lantus from 80-100 and I will continue monitoring the blood sugar. 10. Gastrointestinal prophylaxis. Continue with Protonix. CRITICAL CARE TIME: 40 minutes. cc: Ashish Driver MD
[2017-02-18] MEDS: MAXIPIME 1 GM/NS 1 GM/50 ML IVPB IV SCH (17:11)
[2017-02-18 19:18] LABS: AGAP 5; BUN 45 mg/dL (8-22); CALCIUM 8.2 mg/dL (8.8-10.2); CHLORIDE 107 mmol/L (98-107); COSMO 311; POTASSIUM 3.9 mmol/L (3.5-5.1); SODIUM 148 mmol/L (136-145); TCO2 36 mmol/L (25-35)
[2017-02-18] MEDS: LIPOSYN 20% 250 ML IV SCH (19:32)
[2017-02-18] MEDS: [UNRECOGNIZED DRUG - NUTRITION] IV SCH ×5 (21:07)
[2017-02-19] MEDS: ZYVOX 600 MG/D5W 600 MG/300 ML IVPB IV SCH ×2 (02:02→13:07)
[2017-02-19] MEDS: SOLU-CORTEF IV SCH ×4 (02:03→20:20)
[2017-02-19] MEDS: HUMALOG SUBQ SCH ×6 (02:05→20:10)
[2017-02-19 05:10] LABS: ALLEN TEST YES; BE 14.3 mmoll (-3.0-3.0); BLOOD TYPE ARTERIAL; DRAW SITE R RADIAL; METHB 0.1 % (0.0-1.5); O2(CT) 11.4 mL/dL (15.0-23.0); PCO2(98.6) 41 mmHg (35-45); PO2(98.6) 66 mmHg (60-100); SAMPLE BLOOD; SAO2 96.8 % (95.0-100.0); THB 8.5 g/dL (11.5-17.4)
[2017-02-19 05:11] LABS: MODALITY CANNULA; pH(98.6) 7.57 (7.35-7.45)
[2017-02-19 05:18] LABS: AGAP 8; BUN 45 mg/dL (8-22); CALCIUM 7.9 mg/dL (8.8-10.2); CHLORIDE 110 mmol/L (98-107); COSMO 318; SODIUM 151 mmol/L (136-145); TCO2 33 mmol/L (25-35)
[2017-02-19 05:54] LABS: BASO% 0.1 % (0.0-0.8); HEMATOCRIT 27.8 % (42.0-52.0); HEMOGLOBIN 8.1 g/dL (14.0-18.0); IMM GRAN# 0.06 X1000 (0.0-0.04); IMM GRAN% 0.4 % (0.0-0.5); LYMPH# 0.48 X1000 (1.2-3.4); LYMPH% 2.9 % (20.5-51.1); MANUAL DIFF NEEDED? YES; MCH 20.7 PG (27-31); MCHC 29.1 g/dL (33-37); MCV 70.9 FL (81-99); MONO# 0.49 X1000 (0.11-0.59); MONO% 2.9 % (1.7-9.3); NEUT% 93.7 % (42.2-75.2); PLT 229 X1000 (130-400); RBC 3.92 XMIL (4.7-6.1)
[2017-02-19 06:11] LABS: BANDS 4 % (0-1); HYPOCHROM 2+; LARGE PLATELETS OCCASIONAL; LYMPHS 4 % (21-51)
[2017-02-19] MEDS: CORDARONE 360 MG/D5W 360 MG/200 ML IV.SOLN IV SCH (06:13)
[2017-02-19] MEDS: QUESTRAN PO SCH ×2 (06:19→18:32)
--- NOTE | 2017-02-19 08:02 | Diag Imaging Result Doc PS360 ---
EXAM: CHEST-1 VIEW INDICATION: SOB TECHNIQUE: One view COMPARISON: 02/18/2017 FINDINGS: The left central line is in stable position. The NG tube projects below the diaphragm and out of the [id number]. The left lower lobe atelectasis and/or infiltrate has improved. There are no new consolidations. Cardiac silhouette is stable. IMPRESSION: Improvement of left basilar atelectasis and/or infiltrate. Electronically signed by Juaquin Melendez 02/19/2017 8:00 AM
[2017-02-19] MEDS ORDERED: LANTUS SUBQ SCH ×2 (09:00→18:48)
[2017-02-19] MEDS: DILAUDID IV PRN ×4 (09:16→20:20)
[2017-02-19] MEDS: CALMOSEPTINE OINTMENT TOP SCH ×4 (09:21→20:21)
[2017-02-19] MEDS: COREG PO SCH ×2 (09:45→20:21)
[2017-02-19] MEDS: CORDARONE NG SCH (09:45)
[2017-02-19] MEDS: RANEXA PO SCH (09:45)
[2017-02-19] MEDS: PRAVACHOL PO SCH (09:45)
[2017-02-19] MEDS: PROTONIX IV SCH ×2 (09:46→20:20)
[2017-02-19] MEDS: LEVAQUIN 250 MG/D5W 250 MG/50 ML IVPB IV SCH (09:46)
[2017-02-19] MEDS ORDERED: INSULIN PEN NEEDLES ONE (10:11)
--- NOTE | 2017-02-19 11:04 | PROGRESS NOTE ---
DATE: 02/19/2017 SUBJECTIVE: Mr. Romain Pereira is a 71-year-old white male who underwent an extensive small bowel resection per Dr. Saucedo. OBJECTIVE: He has an NG tube in place, and tube feedings have started at 15 mL/h. He seems to be tolerating those. He has had some loose bowel movements. His abdomen is mostly soft. He is also receiving IV nutrition. He is awake and cooperative. Hemodynamically, he is satisfactory. PLAN: Will increase his tube feeding to 30 mL/h. As we can increase his tube feeding, we will stop his peripheral nutrition. He does have some serous leakage from his midline wound, and will keep the dressings changed. cc: Laurie Urias MD
--- NOTE | 2017-02-19 11:24 | PROGRESS NOTE ---
DATE: 02/19/2017 SUBJECTIVE: This patient was extubated a couple days ago. He is doing better. He is more alert. He is more oriented. He is able to recognize people and follow commands. Today, this patient is hypernatremic. I had ordered free water at the beginning 100 mL every 4 hours to see if he tolerates that. Also we have order free water through his mouth. I already asked for a new BMP for this afternoon. OBJECTIVE: Vital Signs: Temperature 99.2 degrees, pulse 76, respiratory rate 20 on the monitor, blood pressure 162/63, oxygen saturation 94% on 4 L of nasal cannula. HEENT: Head normocephalic. No trauma. PERRLA. Neck: Supple. No JVD. No masses. Central trachea. Cardiovascular: RRR. No murmurs. Chest: Decreased breath sounds at the bases with mild rales bilaterally. Abdomen: Soft. There is a midline surgical wound that looks clean, dry and intact. Extremities: No edema, no clubbing, no cyanosis. Neurological: The patient is alert. He is following commands. He is able to say his name. He had recognized family members and he moves all 4 extremities. He looks better compared with yesterday. LABORATORY: WBC 16.8, hemoglobin 8.1, hematocrit 27.8, platelets 229. Sodium 151, potassium 4, chloride 110, bicarbonate 33, BUN 45, creatinine 0.7, glucose 209, calcium 7.9. ASSESSMENT AND PLAN: 1. Septic shock, resolved. This patient is not on pressors. This is likely secondary to ischemic bowel disease. Surgery Department is following this patient. 2. Ischemic bowel disease. Like I mentioned before, Surgery Department is following this patient. They removed part of his bowel; apparently 60 cm of bowel is left in his intestinal tract. This is concerning because he can have a problem with the anastomosis, and he can have also short-bowel syndrome. 3. Acute kidney injury, resolved. 4. Anemia likely secondary to acute blood loss. Continue to monitor. Stable. 5. Hypernatremia. Today, I will start this patient on free water through the nasogastric tube; it will be 100 mL every 4 hours. Also we are going to start giving him fluid/water per mouth. 6. I will monitor the basic metabolic panel in the afternoon. 7. Left lower lobe pneumonia. Continue with antibiotics. 8. Severe protein calorie malnutrition. Continue with total parenteral nutrition and tube feeding. 9. Type 2 diabetes. The dose of Lantus has been increased yesterday. Blood sugar looks a little bit better. 10. Gastrointestinal prophylaxis. Continue with Protonix. CRITICAL CARE TIME: 40 minutes. cc: Ashish Driver MD
[2017-02-19] MEDS: MAXIPIME 1 GM/NS 1 GM/50 ML IVPB IV SCH (15:01)
[2017-02-19] MEDS: FENTANYL 1,000 MICROGM in NS 80 ML IV SCH (15:01)
[2017-02-19 16:09] LABS: AGAP 7; BUN 43 mg/dL (8-22); CALCIUM 7.7 mg/dL (8.8-10.2); CHLORIDE 109 mmol/L (98-107); COSMO 312; POTASSIUM 3.8 mmol/L (3.5-5.1); SODIUM 151 mmol/L (136-145); TCO2 35 mmol/L (25-35)
[2017-02-19] MEDS ORDERED: D50W SYRINGE ONE (20:19)
[2017-02-19] MEDS: SODIUM CHLORIDE 0.9% INJ SCH (20:20)
[2017-02-19] MEDS: D50W SYRINGE IV PRN ×3 (20:21→23:06)
[2017-02-19] MEDS: HALDOL IV PRN (22:53)
[2017-02-20] MEDS: ZYVOX 600 MG/D5W 600 MG/300 ML IVPB IV SCH ×2 (00:40→13:26)
[2017-02-20] MEDS: SOLU-CORTEF IV SCH ×4 (02:24→20:41)
[2017-02-20] MEDS: DILAUDID IV PRN ×5 (02:56→20:41)
[2017-02-20] MEDS ORDERED: D10W 1,000 ML IV SCH (03:34)
[2017-02-20 04:47] LABS: ALLEN TEST YES; BE 13.9 mmoll (-3.0-3.0); BLOOD TYPE ARTERIAL; DRAW SITE R RADIAL; METHB 0.9 % (0.0-1.5); O2(CT) 9.5 mL/dL (15.0-23.0); PCO2(98.6) 48 mmHg (35-45); PO2(98.6) 79 mmHg (60-100); SAMPLE BLOOD; SAO2 97.3 % (95.0-100.0); pH(98.6) 7.51 (7.35-7.45)
[2017-02-20 04:49] LABS: MODALITY CANNULA
[2017-02-20] MEDS: HUMALOG SUBQ SCH ×6 (05:01→20:48)
[2017-02-20 06:10] LABS: AGAP 10; BUN 42 mg/dL (8-22); CALCIUM 7.7 mg/dL (8.8-10.2); CHLORIDE 110 mmol/L (98-107); COSMO 308; POTASSIUM 3.8 mmol/L (3.5-5.1); SODIUM 151 mmol/L (136-145); TCO2 31 mmol/L (25-35)
[2017-02-20] MEDS: QUESTRAN PO SCH ×2 (06:23→18:01)
--- NOTE | 2017-02-20 07:56 | Diag Imaging Result Doc PS360 ---
EXAM: CHEST-1 VIEW INDICATION: SOB TECHNIQUE: One view COMPARISON: 02/19/2017 FINDINGS: A left central line is stable. An NG tube projects below the diaphragm and is assumed to be in the stomach. Mild left lower lobe atelectasis and/or infiltrate is approximately stable. There are no definite new consolidations. Cardiac silhouette is stable. IMPRESSION: Stable chest. Electronically signed by Juaquin Melendez 02/20/2017 7:53 AM
[2017-02-20] MEDS ORDERED: LANTUS SUBQ SCH (09:00)
[2017-02-20] MEDS: RANEXA PO SCH (09:21)
[2017-02-20] MEDS: D5W 1,000 ML IV SCH (09:22)
[2017-02-20] MEDS: PRAVACHOL PO SCH (09:22)
[2017-02-20] MEDS: PROTONIX IV SCH ×2 (09:22→20:41)
[2017-02-20] MEDS: CORDARONE NG SCH (09:22)
[2017-02-20] MEDS: LEVAQUIN 250 MG/D5W 250 MG/50 ML IVPB IV SCH (09:22)
[2017-02-20] MEDS: SODIUM CHLORIDE 0.9% INJ SCH (09:22)
[2017-02-20] MEDS: COREG PO SCH ×2 (09:22→20:41)
--- NOTE | 2017-02-20 09:27 | PROGRESS NOTE ---
DATE: 02/20/2017 SUBJECTIVE: This patient looks better. He is more alert and oriented. He is following commands and answering some of my questions. His sodium is still elevated even though he has been getting water boluses and we put some free water with the tube feeding. Also, this patient has been getting ice chips/water through his mouth. I will put this patient on D5W at 50 mL per hour. I will continue with the rest. This patient has been having also hypoglycemia. I will stop his insulin Lantus. I will keep this patient on a sliding scale insulin and I will check a BMP in the afternoon again. OBJECTIVE: Vital Signs: Temperature 97.7 degrees, pulse 58, respiratory rate 14, blood pressure 110/42, oxygen saturation 98 on 2 L of nasal cannula. HEENT: Head normocephalic. No trauma. PERRLA. Neck: Supple. No JVD. No masses. Central trachea. Cardiovascular: RRR. No murmurs. Chest: Decreased breath sounds at the bases. Abdomen: Soft. There is a midline surgical wound that looks clean, dry, and intact. The abdomen is mildly distended. Nontender. Positive bowel sounds. Extremities: No edema. No clubbing. No cyanosis. Neurological Examination: The patient is alert. He is following commands. He is able to say his name. He looks better. Laboratory: Sodium 151, potassium 3.8, chloride 110, bicarbonate 31, BUN 42, creatinine 0.6, glucose 63, calcium 7.7. ASSESSMENT AND PLAN: 1. Septic shock, resolved. This patient is not on pressors. Likely secondary to ischemic bowel disease. Surgery department is following this patient. 2. Ischemic bowel disease. Surgery is on board. Apparently 60 cm of bowel is left in his intestinal tract. This is concerning because he can have a problem with the anastomosis or have a short bowel syndrome. 3. Acute kidney injury, resolved. 4. Anemia, likely secondary to acute blood loss. Continue to monitor. Stable. 5. Hypernatremia. I will continue with the free water through the nasogastric tube, also 100 mL of water boluses every 4 hours. Also, I am going to start this patient on D5W at 50 mL per hour. I will recheck a BMP in the afternoon. 6. Hypoglycemic. I will stop the insulin Lantus and I will continue with sliding scale. This patient will be on D5W. 7. Left lower lobe pneumonia. Continue with antibiotics. 8. Severe protein calorie malnutrition. Continue with total parenteral nutrition and tube feedings. 9. Type 2 diabetes. The dose of Lantus has been stopped. We will continue with the sliding scale and pattern of blood sugar. 10. Gastrointestinal prophylaxis. Continue with Protonix. CRITICAL CARE TIME: 40 minutes. cc: Ashish Driver MD
[2017-02-20] MEDS: CALMOSEPTINE OINTMENT TOP SCH ×4 (09:37→20:40)
[2017-02-20 09:39] LABS: BASO% 0.1 % (0.0-0.8); HEMATOCRIT 27.5 % (42.0-52.0); HEMOGLOBIN 8.1 g/dL (14.0-18.0); IMM GRAN# 0.05 X1000 (0.0-0.04); IMM GRAN% 0.3 % (0.0-0.5); LYMPH% 2.7 % (20.5-51.1); MANUAL DIFF NEEDED? YES; MCH 20.9 PG (27-31); MCHC 29.5 g/dL (33-37); MCV 71.1 FL (81-99); MONO# 0.48 X1000 (0.11-0.59); MONO% 2.6 % (1.7-9.3); NEUT% 94.3 % (42.2-75.2); PLT 238 X1000 (130-400); RBC 3.87 XMIL (4.7-6.1)
[2017-02-20 10:39] LABS: BANDS 24 % (0-1); LYMPHS 2 % (21-51); MONO 2 % (1-9)
[2017-02-20 10:40] LABS: TARGET CELLS 1+
--- NOTE | 2017-02-20 11:46 | PROGRESS NOTE ---
DATE: 02/20/2017 Mr. Romain Pereira is a 71-year-old white male who is now postoperative day 7 from a small bowel resection per Dr. Saucedo. Were increasing his tube feedings which he seems to be tolerating but he is having multiple loose stools. He is having some significant serous drainage from his wound. We are changing the dressings 2-3 times a day. He is awake, cooperative. We stopped his TPN. His heart rate 63, blood pressure 151/60, O2 saturation 96%. He is afebrile. He is receiving Xifaxan, Levaquin. He is on steroids. His white blood cell count has gone from 16 to 18, hematocrit is 27%. BUN and creatinine 42 and 0.6. We will increase his tube feeding today and continue supportive care. cc: Laurie Urias MD
[2017-02-20] MEDS: FENTANYL 1,000 MICROGM in NS 80 ML IV SCH (12:08)
[2017-02-20] MEDS: D50W SYRINGE IV PRN (13:26)
[2017-02-20] MEDS: HALDOL IV PRN (15:30)
[2017-02-20] MEDS: MAXIPIME 1 GM/NS 1 GM/50 ML IVPB IV SCH (15:33)
[2017-02-20 16:20] LABS: AGAP 8; BUN 41 mg/dL (8-22); CALCIUM 7.3 mg/dL (8.8-10.2); CHLORIDE 107 mmol/L (98-107); COSMO 304; POTASSIUM 3.4 mmol/L (3.5-5.1); SODIUM 147 mmol/L (136-145); TCO2 32 mmol/L (25-35)
[2017-02-21] MEDS: ZYVOX 600 MG/D5W 600 MG/300 ML IVPB IV SCH ×2 (00:10→12:30)
[2017-02-21] MEDS: HUMALOG SUBQ SCH ×6 (00:10→20:46)
[2017-02-21] MEDS: DILAUDID IV PRN ×5 (02:43→23:19)
[2017-02-21] MEDS: SOLU-CORTEF IV SCH ×4 (02:43→20:48)
[2017-02-21] MEDS: D5W 1,000 ML IV SCH ×3 (03:37→23:51)
[2017-02-21 04:54] LABS: ALLEN TEST YES; BE 8.1 mmoll (-3.0-3.0); BLOOD TYPE ARTERIAL; DRAW SITE R RADIAL; METHB 0.6 % (0.0-1.5); O2(CT) 16.6 mL/dL (15.0-23.0); PCO2(98.6) 45 mmHg (35-45); PO2(98.6) 84 mmHg (60-100); SAMPLE BLOOD; SAO2 97.3 % (95.0-100.0); THB 12.4 g/dL (11.5-17.4); pH(98.6) 7.47 (7.35-7.45)
[2017-02-21 04:55] LABS: MODALITY CANNULA
[2017-02-21 05:12] LABS: EOS# 0.03 X1000 (0.0-0.7); EOS% 0.1 % (0.0-10.0); HEMATOCRIT 26.7 % (42.0-52.0); HEMOGLOBIN 7.8 g/dL (14.0-18.0); IMM GRAN# 0.07 X1000 (0.0-0.04); IMM GRAN% 0.3 % (0.0-0.5); LYMPH# 0.48 X1000 (1.2-3.4); LYMPH% 2.4 % (20.5-51.1); MANUAL DIFF NEEDED? YES; MCH 20.7 PG (27-31); MCHC 29.2 g/dL (33-37); MCV 70.8 FL (81-99); MONO# 0.45 X1000 (0.11-0.59); MONO% 2.2 % (1.7-9.3); PLT 215 X1000 (130-400); RBC 3.77 XMIL (4.7-6.1)
[2017-02-21 05:34] LABS: AGAP 9; BUN 40 mg/dL (8-22); CALCIUM 7.4 mg/dL (8.8-10.2); CHLORIDE 103 mmol/L (98-107); COSMO 295; POTASSIUM 3.7 mmol/L (3.5-5.1); SODIUM 142 mmol/L (136-145); TCO2 30 mmol/L (25-35)
[2017-02-21] MEDS: QUESTRAN PO SCH ×2 (06:07→18:08)
--- NOTE | 2017-02-21 06:31 | PROGRESS NOTE ---
DATE: 02/21/2017 SUBJECTIVE: Patient remained extubated over the course of the weekend. I reviewed notes from the weekend. He is tolerating his tube feeds. Of note, he has had a significant amount of output with multiple bowel movements. They do appear to be just like tube feeds. OBJECTIVE: Vital Signs: Patient is currently afebrile. His vital signs have been stable. General: Alert and talkative. Cardiovascular: Regular rate and rhythm. Lungs: Coarse sounds noted. Abdomen: Soft, nondistended. Incision is healing well. There is some serosanguineous drainage. The incision itself appears to be viable. LABORATORY: White blood cell count is 20, hematocrit 26.7, platelet count 215,000. Remainder of labs reviewed. ASSESSMENT/PLAN: A 77-year-old male status post exploratory laparotomy with small-bowel resection. On 1. Exploratory laparotomy. At this time, patient is clinically doing okay. I suspect that given the way his tube feeds are coming out that he may be showing signs that he is having short gut syndrome. We will need to follow up with his number of bowel movement and check an albumin in the next couple days to see if he is actually is increasing. At this time he is alert enough that we can try a speech eval so I will order that. We will monitor him closely. At this time, his incision is healing well. He has serosanguineous output. I do not think he has had a dehiscence but will need to monitor it closely. 2. Severe protein malnutrition. At this time, patient is off TPN and on nontube feeds completely. We will need to see how well he absorbs at this time and make sure he does have short-gut. Continue to monitor. 3. Leukocytosis. At this time his white blood cell count is 20 which is up slightly. We will need to monitor closely. 4. Acute renal failure. At this time, patient is making urine. Nephrology has signed off. He likely does not need his Vas-Cath but will defer that to Nephrology. cc: Zion Saucedo MD
[2017-02-21] MEDS: RANEXA PO SCH (08:01)
[2017-02-21] MEDS: SODIUM CHLORIDE 0.9% INJ SCH ×2 (08:02→20:48)
[2017-02-21] MEDS: CORDARONE NG SCH (08:02)
[2017-02-21] MEDS: COREG PO SCH ×2 (08:02→20:49)
[2017-02-21] MEDS: PRAVACHOL PO SCH (08:02)
[2017-02-21] MEDS: PROTONIX IV SCH ×2 (08:02→20:48)
[2017-02-21] MEDS: CALMOSEPTINE OINTMENT TOP SCH ×4 (08:03→20:49)
[2017-02-21] MEDS: FENTANYL 1,000 MICROGM in NS 80 ML IV SCH ×2 (08:30→09:52)
[2017-02-21 09:02] LABS: BANDS 6 % (0-1); LYMPHS 4 % (21-51); MONO 2 % (1-9)
[2017-02-21 09:03] LABS: HYPOCHROM 2+
--- NOTE | 2017-02-21 09:26 | PROGRESS NOTE ---
DATE: 02/21/2017 SUBJECTIVE: This patient looks much better today. He is more alert and oriented x3. He is answering all my questions. The blood sodium is normal today, as well as potassium. Blood sugar is acceptable. He has been having multiple bowel movements. This is concerning for short bowel syndrome. We will continue to monitor along with the surgery department. His WBC is a little bit elevated but he has not been having fever or chills. OBJECTIVE: Vital Signs: Temperature 97.3 degrees, pulse 58, respiratory rate 14, blood pressure 104/48, oxygen saturation 98 on 2 L of nasal cannula. HEENT: Head normocephalic. No trauma. PERRLA. Neck: Supple. No JVD. No masses. Central trachea. Cardiovascular: RRR. No murmurs. Chest: Decreased breath sounds at the bases. Abdomen: Soft. There is a midline surgical wound covered by a clean dressing. There is some yellowish secretion. Positive bowel sounds. No pain. Extremities: No edema. No clubbing. No cyanosis. Neurological Examination: The patient is alert and oriented x3. No focal deficits. Laboratory: WBC 20, hemoglobin 7.8, hematocrit 26.7, platelets 215,000. Sodium 142, potassium 3.7, chloride 103, bicarbonate 30, BUN 40, creatinine 0.6, glucose 129, calcium 7.4. ASSESSMENT AND PLAN: 1. Septic shock, resolved. This patient is not on pressors and this is likely secondary to ischemic bowel disease. Surgery department is following this patient. 2. Ischemic bowel disease. Like I mentioned before, surgery is on board. Apparently 60 cm of bowel is left in his intestinal tract. This is concerning because he can have a problem with the anastomoses or short-bowel syndrome. 3. Acute kidney injury, resolved. 4. Anemia, likely secondary to acute blood loss. Continue to monitor. Stable. 5. Hypernatremia, resolved. We will continue for now with the same management. I will decrease the rate of the D5W to 30. 6. Hypoglycemia, resolved. Continue with the same management for now. 7. Left lower lobe pneumonia. Continue with antibiotics. 8. Severe protein calorie malnutrition. This patient is on tube feeding, not total parenteral nutrition. 9. Type 2 diabetes. Continue with sliding scale insulin and pattern of blood sugar. Blood glucose looks better. 10. Gastrointestinal prophylaxis. Continue with Protonix. CRITICAL CARE TIME: 35 minutes. cc: Ashish Driver MD
[2017-02-21] MEDS: LEVAQUIN 250 MG/D5W 250 MG/50 ML IVPB IV SCH (09:54)
[2017-02-21] MEDS: MAXIPIME 1 GM/NS 1 GM/50 ML IVPB IV SCH (17:59)
[2017-02-22] MEDS: ZYVOX 600 MG/D5W 600 MG/300 ML IVPB IV SCH ×2 (00:13→13:49)
[2017-02-22] MEDS: HUMALOG SUBQ SCH ×6 (00:16→21:57)
[2017-02-22] MEDS: SOLU-CORTEF IV SCH ×4 (02:15→20:00)
[2017-02-22] MEDS: DILAUDID IV PRN ×3 (02:15→22:41)
[2017-02-22] MEDS: FENTANYL 1,000 MICROGM in NS 80 ML IV SCH (04:00)
[2017-02-22 04:47] LABS: ALLEN TEST YES; BE 9.2 mmoll (-3.0-3.0); BLOOD TYPE ARTERIAL; DRAW SITE R RADIAL; PCO2(98.6) 43 mmHg (35-45); PO2(98.6) 57 mmHg (60-100); SAMPLE BLOOD; THB < 3.0 g/dL (11.5-17.4)
[2017-02-22 04:50] LABS: MODALITY CANNULA
[2017-02-22 05:01] LABS: EOS# 0.01 X1000 (0.0-0.7); HEMATOCRIT 28.3 % (42.0-52.0); HEMOGLOBIN 8.6 g/dL (14.0-18.0); IMM GRAN# 0.09 X1000 (0.0-0.04); IMM GRAN% 0.3 % (0.0-0.5); LYMPH# 0.47 X1000 (1.2-3.4); LYMPH% 1.7 % (20.5-51.1); MANUAL DIFF NEEDED? NO; MCH 21.3 PG (27-31); MCHC 30.4 g/dL (33-37); MONO# 0.64 X1000 (0.11-0.59); MONO% 2.4 % (1.7-9.3); NEUT% 95.6 % (42.2-75.2); PLT 180 X1000 (130-400); RBC 4.04 XMIL (4.7-6.1)
[2017-02-22 05:17] LABS: AGAP 12; BUN 44 mg/dL (8-22); CALCIUM 7.4 mg/dL (8.8-10.2); CHLORIDE 100 mmol/L (98-107); COSMO 287; POTASSIUM 4.2 mmol/L (3.5-5.1); SODIUM 139 mmol/L (136-145); TCO2 27 mmol/L (25-35)
[2017-02-22] MEDS: QUESTRAN PO SCH ×2 (06:23→18:13)
[2017-02-22] MEDS: PRAVACHOL PO SCH (08:01)
[2017-02-22] MEDS: COREG PO SCH ×2 (08:01→20:00)
[2017-02-22] MEDS: SODIUM CHLORIDE 0.9% INJ SCH ×2 (08:01→20:00)
[2017-02-22] MEDS: CORDARONE NG SCH (08:01)
[2017-02-22] MEDS: PROTONIX IV SCH ×2 (08:01→20:00)
[2017-02-22] MEDS: RANEXA PO SCH (08:01)
[2017-02-22] MEDS: CALMOSEPTINE OINTMENT TOP SCH ×4 (08:02→20:00)
--- NOTE | 2017-02-22 08:39 | PROGRESS NOTE ---
DATE: 02/22/2017 SUBJECTIVE: No major changes. He is still having some drainage come out of his midline incision. It sounds like it is serous. He is tolerating a GI soft diet. OBJECTIVE: Vital Signs: Patient is currently afebrile. His vital signs are stable. General Examination: No acute distress. Resting comfortably. Cardiovascular: Regular rate and rhythm. Lungs: Grossly clear. Abdomen: Soft. Incision healing okay. Some minimal serous drainage noted from the midline. Laboratory: White blood cell count is 26, hematocrit is 28, platelet count 180,000. ASSESSMENT/PLAN: A 77-year-old, male status post exploratory laparotomy with small- bowel resection. 1. Exploratory laparotomy. At this time, the patient is clinically doing okay. His white blood cell count is up slightly. If it continues to increase, may need to repeat a CT scan of his abdomen to rule out any kind of intra-abdominal abscess. He also has the potential for pneumonia which may contributing to his leukocytosis. He is on cefepime, Zyvox, and Levaquin. He is, at this point, tolerating oral intake. We need to clinically watch him to make sure he does not develop signs of short-gut. May need to assess the prealbumin and albumin in the next couple of days. 2. Severe protein malnutrition. Please see above. The patient is tolerating tube feeds. We can remove his nasogastric tube. 3. Leukocytosis. Please see above. If it is continuing to go up, we need to repeat a CAT scan. 4. Acute renal failure. At this time, seems to be resolved. cc: Zion Saucedo MD
[2017-02-22] MEDS: LEVAQUIN 250 MG/D5W 250 MG/50 ML IVPB IV SCH (09:18)
[2017-02-22] MEDS ORDERED: D5 1/2 NS 1,000 ML IV SCH (09:44)
[2017-02-22] MEDS: ASPIRIN PO SCH (12:00)
[2017-02-22] MEDS: D50W SYRINGE IV PRN (13:00)
[2017-02-22] MEDS ORDERED: D5 NS 1,000 ML IV SCH ×2 (15:52→16:00)
[2017-02-22] MEDS: D5 NS 1,000 ML IV SCH (17:33)
[2017-02-22] MEDS: MAXIPIME 1 GM/NS 1 GM/50 ML IVPB IV SCH (17:36)
--- NOTE | 2017-02-22 17:41 | PROGRESS NOTE ---
DATE: 02/22/2017 SUBJECTIVE: When I evaluated this patient in the morning he was looking fine. Actually I was about to transfer this patient to the floor. Physical therapy saw the patient and they sat this patient on a chair. When the nurse noticed that this patient was pale and a little bit confused, they checked the blood sugar and it was more than 70, but the blood pressure was low. Also she states that this patient had a bowel movement while he was sitting but I do not think that was related to the episode of confusion and decreased blood pressure. He was transferred back to the bed and I will start this patient on D5 normal saline 1 L bolus and then we will continue with IV fluids with D5 NS as well. I examined the patient and this patient's abdomen is more tender than it was in the morning so I told the nurse to call the surgeon to evaluate this patient as well. OBJECTIVE: Vital Signs: Temperature 96.8 degrees, pulse 70, respiratory rate 15. Blood pressure on the monitor has been between 80s and 110. O2 saturation 100% on a nonrebreathing mask. HEENT: Head normocephalic. No trauma. PERRLA. Neck: Supple. No JVD. No masses. Central trachea. Cardiovascular: RRR. No murmurs. Chest: Decreased breath sounds at the bases. Abdomen: Soft, but generalized tenderness to palpation. Questionable signs of peritoneal irritation. Positive bowel sounds. Extremities: No edema. No clubbing. No cyanosis. Neurological: The patient is alert and he is oriented x2 on and off. LABORATORY: WBC 26.9, hemoglobin 8.4, hematocrit 28.3, platelets 180,000. Sodium 139, potassium 4.2, chloride 100, bicarbonate 27, BUN 44, creatinine 0.7, glucose 74, calcium 7.4. ASSESSMENT AND PLAN: 1. Septic shock. Today in the morning this patient was doing fine but the blood pressure at this moment is around 80s and 90s. He is receiving a bolus of normal saline with D5 because also this patient's blood sugar has been borderline. Surgery Department is following this patient. 2. Ischemic bowel disease. Like I mentioned before, Surgery is on board. Apparently 60 cm of bowel is left in his intestinal tract. This is concerning because he can have a problem with the anastomosis or short-bowel syndrome. 3. Acute kidney injury. This is getting better. 4. Anemia likely secondary to acute blood loss. Continue to monitor. Stable. 5. Hyponatremia. Resolved. 6. Hypoglycemia. This patient is receiving glucose IV. 7. Confusion and hypotension. I will bolus this patient 1 L of D5 NS. I will ask for troponins and a new EKG. 8. Left lower lobe pneumonia. Continue with antibiotics. 9. Severe protein calorie malnutrition. The tube feedings were removed. This patient has been started on a diet. We will monitor. 10. Type 2 diabetes. Continue with sliding scale insulin. Actually the blood sugar has been normal but in the low range. 11. Gastrointestinal prophylaxis. Continue with Protonix. CRITICAL CARE TIME: 45 minutes. cc: Ashish Driver MD
--- NOTE | 2017-02-22 19:14 | CONSULTATION ---
DATE OF CONSULTATION: 02/22/2017 CONCLUSION: The patient is seen in intensive care unit. He recently had small bowel resection. He is readmitted now. He has a marked leukocytosis the exact etiology of which is uncertain to me. Certainly an intraabdominal infection is considered, however his incision looks fine and when I pushed on his abdomen it did not seem to hurt him much. On chest x-ray there is on the left side possible pneumonia which could be responsible for a leukocytosis. RECOMMENDATIONS: I have discontinued the patient's current antibiotics namely cefepime, Levaquin and Zyvox and placed him on a combination of micafungin and meropenem. DISCUSSION: The patient is unable provide a history. The history was taken from the chart the patient was admitted in the hospital initially with shortness of breath and swelling. He has developed a marked leukocytosis. He has had a stool for Clostridium difficile toxin which was negative. Sputum culture is negative. Chest x-ray shows a possible left pneumonia. Creatinine is 0.7. GFR is 60. The patient's CBC shows a white count of 26,950 hemoglobin 8.6 and platelet count 180,000. The patient's blood gases show a pH of 7.5, PO2 of 57, pCO2 of 43. The patient's creatinine today is 0.7. GFR is greater than 60. PAST MEDICAL HISTORY: Positive for congestive heart failure, hypertension, hyperlipidemia, coronary artery disease and peripheral vascular disease. Patient also had some type of cardiac arrhythmia which necessitated the placement of a permanent pacemaker. PREVIOUS SURGICAL HISTORY: Positive for appendectomy, right femoral bypass of the lower extremity, left stenting of the lower extremity, a cholecystectomy, pacemaker implantation and small bowel obstruction with small bowel resection. ALLERGIES: Include cimetidine and codeine. FAMILY HISTORY: Positive for diabetes, coronary artery disease, myocardial infarction. SOCIAL HISTORY: The patient smokes cigarillos, he did have history of alcohol abuse but he has not had a drink in years. He does not do illicit drugs. MEDICATIONS: At home include insulin, albuterol, Ranexa, pravastatin, valsartan, furosemide, Xarelto and diltiazem. PHYSICAL EXAMINATION: Vital Signs: Temperature is 99.6 degrees, pulse 66, respirations 19, blood pressure 102/43. General: This is an ill-appearing elderly male who is in no acute distress. Head, eyes, ears, nose, and throat: He can hear my spoken words, see near objects. No drainage noted from the nose or ears. Neck: No meningismus. Thorax: Increased AP diameter of the chest. Lungs: Clear to auscultation. Cardiovascular: Irregular heart rate. There is edema of the legs with diminished peripheral pulses. Abdomen: Was soft, it was not tender to light palpation. The patient's incision is intact and right now I do not see any drainage coming from it. Neurologic: Patient is awake. He did move his extremities to request. There was no tremor. Integument: No rash noted. Thank you for the consult. cc: Lewis Kulkarni MD
[2017-02-22] MEDS: MERREM 1 GM in NS 50 ML IV SCH (19:51)
[2017-02-22] MEDS: MYCAMINE 100 MG in NS 100 ML IV SCH (19:53)
[2017-02-22] MEDS: NEO-SYNEPHRINE 50 MG in NS 250 ML IV SCH (23:06)
[2017-02-22] MEDS: HALDOL IV PRN (23:38)
[2017-02-23] MEDS ORDERED: NS 500 ML IV ONE (00:58)
[2017-02-23] MEDS: HUMALOG SUBQ SCH ×6 (01:05→20:21)
[2017-02-23] MEDS: MERREM 1 GM in NS 50 ML IV SCH ×3 (01:31→17:50)
[2017-02-23] MEDS: SOLU-CORTEF IV SCH ×4 (02:22→20:21)
[2017-02-23 04:49] LABS: ALLEN TEST YES; BE 0.9 mmoll (-3.0-3.0); BLOOD TYPE ARTERIAL; DRAW SITE R RADIAL; METHB 0.8 % (0.0-1.5); O2(CT) 12.5 mL/dL (15.0-23.0); PCO2(98.6) 38 mmHg (35-45); PO2(98.6) 82 mmHg (60-100); SAMPLE BLOOD; SAO2 97.3 % (95.0-100.0); THB 9.3 g/dL (11.5-17.4); pH(98.6) 7.43 (7.35-7.45)
[2017-02-23 04:50] LABS: MODALITY CANNULA
[2017-02-23 05:27] LABS: EOS# 0.01 X1000 (0.0-0.7); HEMATOCRIT 29.4 % (42.0-52.0); HEMOGLOBIN 9.2 g/dL (14.0-18.0); IMM GRAN# 0.07 X1000 (0.0-0.04); IMM GRAN% 0.3 % (0.0-0.5); LYMPH# 0.64 X1000 (1.2-3.4); MANUAL DIFF NEEDED? YES; MCH 21.6 PG (27-31); MCHC 31.3 g/dL (33-37); MCV 69.2 FL (81-99); MONO# 0.71 X1000 (0.11-0.59); MONO% 3.3 % (1.7-9.3); NEUT% 93.4 % (42.2-75.2); PLT 214 X1000 (130-400); RBC 4.25 XMIL (4.7-6.1)
[2017-02-23] MEDS: QUESTRAN PO SCH ×2 (06:24→18:22)
[2017-02-23] MEDS: D5 NS 1,000 ML IV SCH (06:24)
[2017-02-23 06:33] LABS: POTASSIUM 4.2 mmol/L (3.5-5.1)
--- NOTE | 2017-02-23 06:43 | PROGRESS NOTE ---
DATE: 02/23/2017 SUBJECTIVE: Patient had to be started back on Pavel-Synephrine last night. His blood pressure has dropped. He was given IV boluses. His urine output has also decreased. OBJECTIVE: Vital Signs: Currently, his heart rate is in the 70s, his blood pressure is 108 systolic, currently on Pavel-Synephrine. Respiratory rate is nonlabored in the 20s. O2 saturations is in the 90s. General Examination: Resting comfortably. Cardiovascular: Regular rate and rhythm. Lungs: Some coarse sounds noted. Abdomen: Soft, nondistended. No current drainage noted from his midline incision. It is healing well. Laboratory: White blood cell count is 21.6, hematocrit 29, platelet count 214,000. CMP pending. ASSESSMENT AND PLAN: A 71-year-old, male status post small bowel resection. 1. Exploratory laparotomy. At this time, patient had somewhat of a decline in the last 24 hours. His white blood cell count has gone back down slightly to 21. He is back on pressors. We may need to consider doing a CT scan if his overall clinical picture does not improve. I would probably hold off on any kind of contrast at this point, given his urine output decreasing. Would need to continue to resuscitate him at this point. 2. Severe protein malnutrition. At this time, patient is on diet. We will reassess his prealbumin and albumin in the next 24 hours. 3. Leukocytosis. At this time, it has decreased slightly but there is a concern given his overall clinical picture that he may have some kind of intra-abdominal process occurring versus his pneumonia. Again, may need to consider CT scan. 4. Acute renal failure at this time. Initially, it had resolved but his urine output has decreased. This is concerning that it might be also playing into his overall clinical picture. cc: Zion Saucedo MD
--- NOTE | 2017-02-23 06:49 | EKG Report ---
Test Performed on : 02/22/2017 5:47:27 PM Test Reason : DYSRHYTHMIAS Blood Pressure : / mmHG Vent. Rate : 070 BPM Atrial Rate : 065 BPM P-R Int : 000 ms QRS Dur : 104 ms QT Int : 464 ms P-R-T Axes : 000 018 091 degrees QTc Int : 501 ms Atrial fibrillation. Abnormal QRS-T angle, consider primary T wave abnormality Abnormal ECG When compared with ECG of 09-FEB-2017 06:18, Atrial fibrillation. has replaced Sinus rhythm. Left bundle branch block is no longer present Confirmed by Lang ARAUJO, Chuck Josue ([id number]) on 02/23/2017 2:56:04 PM
[2017-02-23 07:00] LABS: BANDS 16 % (0-1); HYPOCHROM 2+; LYMPHS 6 % (21-51); MONO 2 % (1-9)
[2017-02-23 07:01] LABS: LARGE PLATELETS 1+
[2017-02-23] MEDS: SODIUM CHLORIDE 0.9% INJ SCH (08:31)
[2017-02-23] MEDS: PROTONIX IV SCH ×2 (08:31→20:21)
[2017-02-23] MEDS: ASPIRIN PO SCH (08:32)
[2017-02-23] MEDS: RANEXA PO SCH (08:32)
[2017-02-23] MEDS: PRAVACHOL PO SCH (08:32)
[2017-02-23] MEDS: COREG PO SCH ×2 (08:33→20:05)
[2017-02-23] MEDS: CALMOSEPTINE OINTMENT TOP SCH ×4 (08:33→20:21)
[2017-02-23] MEDS: DILAUDID IV PRN ×2 (08:44→13:52)
[2017-02-23] MEDS ORDERED: CORDARONE PO SCH (09:00)
--- NOTE | 2017-02-23 09:37 | Diag Imaging Result Doc PS360 ---
CHEST-PORTABLE - 02/23/2017 INDICATION: SOB TECHNIQUE: COMPARISON: 02/20/2017 FINDINGS: The nasogastric tube has been removed. Stable left central line. Stable significant cardiomegaly. Stable CABG changes and right-sided pacemaker. Lung volumes are critically low with central crowding but no obvious infiltrates. There is suggestion of perhaps some intraperitoneal air visible under the right hemidiaphragm. A CT has already been ordered to further evaluate this. IMPRESSION: 1. Cardiomegaly and critically low lung volumes. 2. Possible intraperitoneal free air. The patient is status post intra-abdominal surgery anyway. Electronically signed by Rio Mathew 02/23/2017 9:35 AM
--- NOTE | 2017-02-23 10:36 | Diag Imaging Result Doc PS360 ---
THORAX/ABDOMEN/PELVIS W/O CONT - 02/23/2017 INDICATION: S/P abdominal surgery, pneumonia, sepsis TECHNIQUE: A CT dose reduction protocol was used. COMPARISON: 02/09/2017 FINDINGS: CHEST: There are trace pleural effusions. There is some minimal dependent atelectasis similar to prior. Stable mediastinal lipomatosis giving the appearance of significant cardiomegaly. Stable right-sided pacemaker in good position. No substantial infiltrates. Abdomen pelvis: There is moderate ascites and peritoneal free air. There are cholecystectomy clips. There are small bowel resection staple lines. These are mostly in the left mid abdomen. There is some gas and stool in the colon and rectum which appears fairly unremarkable. Rodriguez catheter in the urinary bladder. Prostate is normal. There is severe vascular disease. There are moderate degenerative changes of the spine. No acute or suspicious bony lesion. IMPRESSION: 1. Small pleural effusions and small amount of atelectasis, increased from prior. 2. Small amount of ascites and moderate peritoneal free air. Concerning for perforation. 3. Critical results were immediately called to the patient's surgeon. Electronically signed by Rio Mathew 02/23/2017 10:34 AM
--- NOTE | 2017-02-23 10:59 | PROGRESS NOTE ---
DATE: 02/23/2017 SUBJECTIVE: I was asked to see Mr. Pereira ordered again because of a rise in his creatinine. He had acute kidney injury on presentation and receives dialysis transiently. His renal function had normalized and his dialysis catheter removed. His creatinine was 0.7 on the . However, yesterday he had deterioration in his clinical course. He developed atrial fibrillation with rapid ventricular response, as well as worsening abdominal pain and decreased sensorium. This morning he is awake and alert. He is able to relate that he is feeling worse. He does relate abdominal pain. No nausea or vomiting. Some shortness of breath. OBJECTIVE: Vital Signs: Blood pressure 86/57, heart rate 77, respirations 21, afebrile. Intake 4.3 L, output 680 mL. General Appearance: Chronically ill elderly man, lying at 45 degrees, in no acute distress. Skin: Somewhat pale and dry. Conjunctivae are pink. Pupils are equal. Oropharynx is dry. Neck: Supple. Neck veins are distended. Heart: Irregular and tachycardiac. Lungs: Have equal breath sounds. Shallow. Few crackles. Abdomen: Firm and diffusely tender. Bowel sounds are not appreciated. Extremities: Have 1+ edema. No clubbing or cyanosis. LABORATORY DATA: Sodium 139, potassium 4.2, chloride 102, bicarbonate 23. BUN 60, creatinine 1.6. Anion gap 14. Hemoglobin 9.2, white blood cell count 72448. PH 7.43, pCO2 38, PO2 82, lactate of 2.3. IMPRESSION: Acute kidney injury. Likely secondary to his decline in clinical status with hypotension, tachycardia, abdominal pain, etc. I have spoken directly with Dr. Ambrocio this morning. He has plans for CT of the abdomen and pelvis without contrast today, as well as CT of the chest. No other imaging is required regarding his kidneys. We will check urine electrolytes. Will stop his supplemental IV fluids at this time, pending is urine electrolytes. He does have a prerenal pattern, but I think this is because of cardiac decompensation not cause of volume contraction. cc: Alan Lopez MD
[2017-02-23] MEDS: NEO-SYNEPHRINE 50 MG in NS 250 ML IV SCH ×2 (11:33→19:53)
--- NOTE | 2017-02-23 11:59 | PROGRESS NOTE ---
DATE: 02/23/2017 SUBJECTIVE: I was informed by Dr. Mathew the results of the CT scan that were ordered that showed a moderate amount of free air in the peritoneum concerning for the fact that this might be a perforation. I discussed the results with Dr. Ambrocio in the ICU and discussed the results with the family in the ICU. His overall clinical status is still deteriorating in the last 24 hours. This is likely because of the perforation. I discussed with the family with Dr. Ambrocio present at the bedside that I suspect that any outcome is going to be poor prognosis for him. I discussed with him that the patient probably would not tolerate and intra-abdominal surgery at this time. After a lengthy discussion with both the patient and the family, we have elected to do a nonoperative management of this current situation. I will make the patient n.p.o. and replace him back on TPN. I discussed with the family that this might still ultimately have a poor prognosis but I suspect that this route would be less likely to cause that in the current time. I discussed that at a later date we will do another CT scan with p.o. contrast to evaluate the actual perforation. They voiced understanding and agreed with said plan. cc: Zion Saucedo MD
[2017-02-23] MEDS ORDERED: CORDARONE 540 MG in D5W 289.2 ML IV ONE (12:40)
[2017-02-23] MEDS: D50W SYRINGE IV PRN (12:46)
[2017-02-23] MEDS: CORDARONE 360 MG/D5W 360 MG/200 ML IV.SOLN IV SCH (13:08)
[2017-02-23 13:19] LABS: URINE SOURCE CLEAN CATCH
[2017-02-23 13:25] LABS: UR CREAT RANDOM 181.7 mg/dL (14-26); UR PROT RANDOM 115.4 mg/dL
[2017-02-23] MEDS: LIPOSYN 20% 250 ML IV SCH (13:52)
[2017-02-23] MEDS: [UNRECOGNIZED DRUG - NUTRITION] IV SCH ×5 (13:52)
--- NOTE | 2017-02-23 15:16 | PROGRESS NOTE ---
DATE: 02/23/2017 SUBJECTIVE: This patient is lying comfortably in bed. He has confusion on and off. He is complaining about belly pain. Family members at the bedside. We had a large conversation along with the surgery department about the prognosis of this patient. This patient's anastomosis is probably leaking and that could be the cause of his abdominal pain. We ordered a CT scan of the chest, abdomen, and pelvis this morning and that showed a small pleural effusion and small amount of atelectasis. Also a small amount of ascites and moderate peritoneal free air concerning for perforation but we do believe that this could be also related to the anastomosis. OBJECTIVE: Vital Signs: Temperature 97.9 degrees, pulse 75, respiratory rate 25, blood pressure 89/61, oxygen saturation 96% on 5 L of nasal cannula. HEENT: Head normocephalic. No trauma. PERRLA. Neck: Supple. No JVD. No masses. Central trachea. Chest: Decreased breath sounds at the bases. Abdomen: Abdomen is not soft. He has generalized tenderness to palpation. Decreased bowel sounds. Extremities: No edema. No clubbing. No cyanosis. Neurological: The patient is alert and he is oriented on and off. LABORATORY: WBC 21.6, hemoglobin 9.2, hematocrit 29.4, platelets 214,000. Sodium 139, potassium 4.2, chloride 102, bicarbonate 23, BUN 60, creatinine 1.6, glucose 78, calcium 7, albumin 1.5. ASSESSMENT AND PLAN: 1. Septic shock. Continue with pressors. The blood pressure has been borderline low. He is on fluids as well and broad-spectrum antibiotics. Infectious disease department is following this patient. 2. 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 Surgery is on board. We are concerned about an anastomosis problem and probably this is why this patient has abdominal pain and increased air inside the abdomen. 3. Acute kidney injury. Probably this is related with acute decrease of blood pressure. Nephrology department is on board. 4. Anemia, likely secondary to acute blood loss. Continue to monitor. 5. Hyponatremia, resolved. 6. Hypoglycemia. Continue with the same management. The glucose is normal. 7. Confusion and hypotension. Continue with pressors and IV fluids. 8. Left lower lobe pneumonia. Continue with antibiotics. 9. Severe protein calorie malnutrition. We are going to put this patient back on TPN. 10. Type 2 diabetes. Continue with the pattern of blood sugar and sliding scale insulin. 11. Gastrointestinal prophylaxis. Continue with Protonix. I had a large conversation with his daughter about his DNR status and she decided to put this patient DNR level 2. She does not want any aggressive measures. She only wants IV medication but she does not want chest compression, cardioversion, intubation, or mechanical ventilation. CRITICAL CARE TIME: One hour. cc: Ashish Driver MD
[2017-02-23 17:37] LABS: BILIRUBIN URINE MODERATE (NEGATIVE); BLOOD URINE MODERATE (NEGATIVE); CLARITY CLEAR (CLEAR); COLOR AMBER; GLUCOSE URINE NEGATIVE (NEGATIVE); LEUKOCYTES URINE TRACE (NEGATIVE); NITRITE URINE POSITIVE (NEGATIVE); PH URINE 5.5; PROTEIN URINE 100 mg/dL (NEGATIVE); SP GRAVITY URINE >= 1.030
--- NOTE | 2017-02-23 17:39 | PROGRESS NOTE ---
DATE: 02/23/2017 PRESENT ILLNESS: The patient recently had a small bowel resection. He came back in the hospital. He has leukocytosis and has renal failure. He also has free air in his abdomen. MEDICATIONS: Patient currently is receiving a combination of meropenem and micafungin. PHYSICAL EXAMINATION: Vital Signs: Temperature is 98.7 degrees, pulse 68, respirations 22, blood pressure 140/86. General: This is an ill-appearing, elderly male. He is in no acute distress. Thorax: The patient has an increased AP diameter to the chest. He has a pacemaker in place. Lungs: Clear to auscultation. Cardiovascular: Regular heart rate. Abdomen: Soft, but tender. The patient's incision is intact. Neurologic: Patient is lethargic. LABORATORY AND X-RAY: CT scan of the abdomen shows basilar atelectasis, pleural effusions and in the abdomen ascites with free air. Patient's CBC shows a white count of 21,660 , hemoglobin 9.2, and platelet count 214,000. Patient's blood gases show a pH of 7.43, a PO2 of 82, and a pCO2 of 38. Creatinine is 1.6. GFR is 43. ASSESSMENT AND PLAN: The patient is admitted after having a small bowel resection. He may be septic, but I am not exactly sure where the sepsis if it exists comes from. For right now, I am plan to continue with the current antibiotic treatment. COMORBIDITY: Very recent surgery, elderly. cc: Lewis Kulkarni MD MTDD
[2017-02-23 17:46] LABS: URINE EPITHELIAL CELLS <10 /HPF (<10); URINE WBC <10 /HPF (<10)
[2017-02-23] MEDS: MYCAMINE 100 MG in NS 100 ML IV SCH (17:50)
[2017-02-24] MEDS: CORDARONE 360 MG/D5W 360 MG/200 ML IV.SOLN IV SCH ×2 (00:14→11:40)
[2017-02-24] MEDS: HUMALOG SUBQ SCH ×6 (00:15→21:12)
[2017-02-24] MEDS: MERREM 1 GM in NS 50 ML IV SCH ×3 (02:43→16:53)
[2017-02-24] MEDS: SOLU-CORTEF IV SCH ×4 (02:43→21:11)
[2017-02-24 03:37] LABS: BASO% 0.1 % (0.0-0.8); HEMATOCRIT 32.2 % (42.0-52.0); HEMOGLOBIN 10.1 g/dL (14.0-18.0); IMM GRAN# 0.12 X1000 (0.0-0.04); IMM GRAN% 0.6 % (0.0-0.5); LYMPH# 0.45 X1000 (1.2-3.4); LYMPH% 2.3 % (20.5-51.1); MANUAL DIFF NEEDED? YES; MCH 21.7 PG (27-31); MCHC 31.4 g/dL (33-37); MCV 69.1 FL (81-99); MONO# 0.54 X1000 (0.11-0.59); MONO% 2.7 % (1.7-9.3); NEUT% 94.3 % (42.2-75.2); PLT 226 X1000 (130-400); RBC 4.66 XMIL (4.7-6.1)
[2017-02-24 03:54] LABS: MAGNESIUM 1.9 mg/dL (1.5-2.7)
[2017-02-24 03:57] LABS: ALBUMIN 1.5 g/dL (3.5-5.0); POTASSIUM 4.2 mmol/L (3.5-5.1); PREALBUMIN 7.2 mg/dL (20-40); TOTAL BILIRUBIN 1.97 mg/dL (0.20-1.00); TOTAL PROTEIN 3.3 g/dL (6.3-8.3)
[2017-02-24 04:25] LABS: PREALBUMIN 7.3 mg/dL (20-40)
[2017-02-24 04:28] LABS: ALLEN TEST YES; BE -1.2 mmoll (-3.0-3.0); BLOOD TYPE ARTERIAL; DRAW SITE R RADIAL; METHB 0.8 % (0.0-1.5); PCO2(98.6) 39 mmHg (35-45); PO2(98.6) 87 mmHg (60-100); SAMPLE BLOOD; SAO2 97.4 % (95.0-100.0); THB 10.4 g/dL (11.5-17.4); pH(98.6) 7.39 (7.35-7.45)
[2017-02-24 04:29] LABS: MODALITY CANNULA
[2017-02-24 05:06] LABS: BANDS 24 % (0-1); LYMPHS 2 % (21-51)
[2017-02-24 05:07] LABS: LARGE PLATELETS OCCASIONAL
[2017-02-24] MEDS: NEO-SYNEPHRINE 50 MG in NS 250 ML IV SCH (05:29)
[2017-02-24] MEDS ORDERED: NS 500 ML IV ONE (06:04)
[2017-02-24] MEDS: QUESTRAN PO SCH ×2 (06:23→18:08)
--- NOTE | 2017-02-24 07:31 | PROGRESS NOTE ---
DATE: 02/24/2017 SUBJECTIVE: The patient is still on Pavel-Synephrine. Discussed his course with his nurse. Overnight, no major changes. The patient is not complaining of significant abdominal pain. He was restarted on his TPN. He is currently NPO. His urine output has increased slightly. OBJECTIVE: Vital Signs: Patient is currently afebrile. Most recent pulse 66, respiratory rate 21 and nonlabored, blood pressure 115/58, on Pavel-Synephrine 85 mcg. Urine output has been anywhere between 20 to 60 through the course of the night. General: Resting comfortably. Cardiovascular: Regular rate and rhythm. Lungs: Some coarse sounds noted. Abdomen: Soft. Minimal distention. No current drainage. No real significant tenderness. Incisions well healed. LABORATORY: White blood cell count is 19, which is down from 21. Hematocrit 32, platelet count 226,000 and lactate is 2.5. Creatinine is 2.1. Albumin 1.5. Prealbumin 7.3. ASSESSMENT AND PLAN: A 71-year-old male status post small-bowel resection. 1. Exploratory laparotomy. At this time, the patient's decline might be related to a leak at his anastomosis. He did have a CT scan yesterday that showed free air in his abdomen, although his clinical exam is not consistent with a significant amount of free air. This may be related to somewhat altered mental status but I do not give him peritonitis on exam. Given this, we made him nothing by mouth and restarted him on total parenteral nutrition. His albumin is very low 1.5. His pre-albumin is 7.2, which is suggestive that even though we had him on enteral nutrition, he was not absorbing enough to get significant protein intake. 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 Regardless, we will keep him on total parenteral nutrition to monitor him closely. I plan on repeating the CT scan or at least a small-bowel series in the next few days with p.o. contrast only to see if he is actually extravasating from his intestine. If he is not, may consider restarting tube feeds, but I would like to continue total parenteral nutrition also. So, I suspect he is not going to be able to tolerate and be adequate on nutrition by just enteral routes alone. 2. Severe protein malnutrition. At this time, again the patient is on total parenteral nutrition; please see above. 3. Leukocytosis. At this time, it has decreased slightly likely related to the intra-abdominal processes occurring. 4. Acute renal failure. At this time, his creatinine is going up. His lactic acid is going up, and his base deficit is increasing. Suspect there is a potential that he might need further resuscitation with IV fluids. He currently has IV fluids, total parenteral nutrition and lipids, but he may need increased fluids. Nephrology is on board. I will defer to them. At this time, he is making urine. cc: Zion Saucedo MD
[2017-02-24] MEDS: PROTONIX IV SCH ×2 (09:04→21:34)
[2017-02-24] MEDS: SODIUM CHLORIDE 0.9% INJ SCH (09:04)
[2017-02-24] MEDS: ASPIRIN PR SCH (09:04)
[2017-02-24] MEDS: COREG PO SCH ×2 (09:05→21:12)
[2017-02-24] MEDS: CALMOSEPTINE OINTMENT TOP SCH ×4 (09:05→21:12)
[2017-02-24] MEDS: PRAVACHOL PO SCH (09:12)
[2017-02-24] MEDS: RANEXA PO SCH (09:12)
[2017-02-24] MEDS: DILAUDID IV PRN ×2 (09:21→16:29)
[2017-02-24] MEDS: ALBUMIN 25% IV SCH (09:59)
--- NOTE | 2017-02-24 09:59 | PROGRESS NOTE ---
DATE: 02/24/2017 SUBJECTIVE: This patient is lying comfortably in bed. He looks more alert and oriented today. He is still complaining of abdominal pain but, compared with yesterday, it is better. No family members at the bedside. He is still on pressors/ the urine output is a little bit better. He made around 300 mL of urine from 7:00 p.m. to 7:00 a.m. We will continue to monitor, but the creatinine is getting worse. WBC is a little bit better. Albumin and pre-albumin is low. OBJECTIVE: Vital Signs: Temperature 97.6 degrees, pulse 66, respiratory rate 21, blood pressure 115/54, oxygen saturation 97% on 4 L of nasal cannula. HEENT: Head normocephalic. No trauma. PERRLA. Neck: Supple. No JVD. No masses. Central trachea. Chest: Decreased breath sounds at the bases with mild rales bilaterally. Abdomen soft. He has generalized tenderness to palpation. I do not think this patient has signs of peritoneal irritation. Extremities: No edema. No clubbing. No cyanosis. Neurologic: The patient is alert and oriented x2. He is not oriented in time. He follows commands. He is moving all 4 extremities. LABORATORY: WBC 19.8, hemoglobin 10.1, hematocrit 32.2, platelets 226,000. Sodium 137, potassium 4.2, chloride 98, bicarbonate 26. BUN 79, creatinine 2.1, glucose 244. Calcium 7. Albumin 1.5. Pre-albumin 7.3. ASSESSMENT AND PLAN: 1. Septic shock. Continue with pressors. Blood pressure has been borderline low. He is on fluids as well, around 100 mL/hour including total parenteral nutrition and he continues medication. He is on broad-spectrum antibiotics. Infectious Disease Department is following this patient. WBC is a little bit better today. 2. Ischemic bowel disease. Surgery is on board. We are concerned about anastomosis leaking and short bowel syndrome, will monitor. 3. Acute kidney injury. Probably, this is related to acute decrease of blood pressure. Nephrology Department is on board. This patient is starting to make a little bit of urine. 4. Anemia likely secondary to acute blood loss. Continue to monitor. 5. Hyponatremia, resolved. 6. Hypoglycemia, resolved. 7. Confusion and hypotension. Continue with pressors. This patient is more alert and oriented today. 8. Left lower lobe pneumonia. Continue with antibiotics. I think this is already resolved. 9. Severe protein calorie malnutrition. Continue with total parenteral nutrition. 10. Type 2 diabetes. Continue with pattern of blood sugar and sliding scale insulin. 11. Gastrointestinal prophylaxis with proton pump inhibitors. 12. This patient is DNR LEVEL 2. All the medications can be used. CRITICAL CARE TIME: 40 minutes. cc: Ashish Driver MD
[2017-02-24] MEDS ORDERED: LASIX IV ONE (10:47)
[2017-02-24] MEDS: [UNRECOGNIZED DRUG - NUTRITION] IV SCH ×5 (14:29)
[2017-02-24] MEDS: LIPOSYN 20% 250 ML IV SCH (14:29)
--- NOTE | 2017-02-24 15:25 | PROGRESS NOTE ---
DATE: 02/24/2017 SUBJECTIVE: Patient resting in bed. He does awaken to verbal and tactile stimuli. He does appear confused. OBJECTIVE: Vital Signs: Temperature 97.8 degrees, pulse 59, respiratory rate 15, blood pressure 129/57. Intake 3.2 L. Output 445 mL. General: Chronically ill-appearing, elderly gentleman resting in bed. He is in no acute distress. HEENT: Normocephalic, atraumatic. EPHRAIM, conjunctivae pink. His oral mucosa is moist. Neck: Supple. Trachea midline. There is positive JVD. Cardiovascular: Irregular rhythm. Rate controlled. Abdomen: Round, soft. Positive bowel sounds. Genitourinary: Not inspected. He has a Rodriguez catheter with light tigre urine. Extremities: He has 1+ pretibial edema. There are vascular changes noted. No clubbing or cyanosis. Skin: Pale, warm, and dry. LABORATORY DATA: WBC of 19.8, hemoglobin 10.1, hematocrit 32.2, and platelets of 226,000. Sodium 137, potassium 4.2, CO2 of 26, BUN 79, and creatinine 2.1. His albumin is 1.5. ASSESSMENT AND PLAN: 1. Acute kidney injury secondary to decline in clinical status, hypotension, tachycardia, and atrial fibrillation. The patient's renal function has not improved overnight. We have dosed him with 50 g of albumin x3 today. His urine output has picked up. He has no indication for intervention at this time. We will check labs in the morning. He did have a low FENa score, but, again, this was felt to be secondary to cardiac decompensation. 2. Electrolytes, acid-base balance, anemia. These are all stable. 3. Fluid volume. He is in positive territory overnight. Again, he has received albumin and urine output has picked up. Follow closely. Seen, data reviewed, discussed with James Oh on 02/24/17. I agree with the above assessment and plan of care. rg Dictated by YOHAN Sorto for Alan Lopez MD cc: Alan Lopez MD [facility]
--- NOTE | 2017-02-24 15:34 | PROGRESS NOTE ---
DATE: 02/24/2017 PRESENT ILLNESS: The patient recently had a small bowel resection. He is readmitted to the hospital in a septic condition including leukocytosis and acute renal failure. The patient also has free air in his abdomen. MEDICATIONS: Patient is receiving a combination of meropenem and micafungin for 2 days now. PHYSICAL EXAMINATION: Vital Signs: Temperature is 97.5 degrees, pulse 59, respirations 15, blood pressure 120/57. General: This is an ill-appearing elderly male who is in no acute distress. He is talking now. Lungs: Clear to auscultation. Cardiovascular: Heart rate is regular. Thorax: Patient has a R side pacemaker in place. The site is not swollen or tender. Neurologic: Patient is lethargic. Abdomen: Soft, nontender, incision intact and not red. LAB AND X-RAY: Do not have a new x-ray. The lab for today shows a CBC with a white count of 19,840, hemoglobin 10.1, and platelet count of 226,000. Creatinine is 2.1. GFR is 31. Blood gases show a pH of 7.39, a PO2 of 87 and a pCO2 of 39. ASSESSMENT AND PLAN: The patient was admitted after small bowel resection and now he I do not think he fits the definition of sepsis. My plan is to continue with his current antimicrobial regimen. COMORBIDITY: He is elderly and he recently had a major surgery. cc: Lewis Kulkarni MD [facility]
[2017-02-24] MEDS: MYCAMINE 100 MG in NS 100 ML IV SCH (18:06)
[2017-02-25] MEDS: CORDARONE 360 MG/D5W 360 MG/200 ML IV.SOLN IV SCH ×2 (00:26→12:42)
[2017-02-25] MEDS: HUMALOG SUBQ SCH ×6 (00:43→21:59)
[2017-02-25] MEDS: MERREM 1 GM in NS 50 ML IV SCH ×3 (00:44→17:40)
[2017-02-25] MEDS: DILAUDID IV PRN ×3 (00:50→21:53)
[2017-02-25] MEDS: SOLU-CORTEF IV SCH ×4 (02:55→21:58)
[2017-02-25 04:34] LABS: ALLEN TEST YES; BE 3.2 mmoll (-3.0-3.0); BLOOD TYPE ARTERIAL; DRAW SITE R RADIAL; METHB 0.9 % (0.0-1.5); PCO2(98.6) 42 mmHg (35-45); PO2(98.6) 70 mmHg (60-100); SAMPLE BLOOD; SAO2 94.7 % (95.0-100.0); THB 13.1 g/dL (11.5-17.4); pH(98.6) 7.43 (7.35-7.45)
[2017-02-25 04:36] LABS: MODALITY CANNULA
[2017-02-25 05:27] LABS: MAGNESIUM 1.9 mg/dL (1.5-2.7)
[2017-02-25 05:53] LABS: BASO% 0.1 % (0.0-0.8); EOS# 0.03 X1000 (0.0-0.7); EOS% 0.2 % (0.0-10.0); HEMATOCRIT 27.9 % (42.0-52.0); HEMOGLOBIN 8.8 g/dL (14.0-18.0); IMM GRAN# 0.08 X1000 (0.0-0.04); IMM GRAN% 0.6 % (0.0-0.5); LYMPH% 2.2 % (20.5-51.1); MANUAL DIFF NEEDED? YES; MCH 21.6 PG (27-31); MCHC 31.5 g/dL (33-37); MCV 68.6 FL (81-99); MONO# 0.46 X1000 (0.11-0.59); MONO% 3.3 % (1.7-9.3); NEUT% 93.6 % (42.2-75.2); PLT 165 X1000 (130-400); RBC 4.07 XMIL (4.7-6.1)
[2017-02-25] MEDS: QUESTRAN PO SCH ×2 (06:10→18:38)
[2017-02-25] MEDS: NEO-SYNEPHRINE 50 MG in NS 250 ML IV SCH (06:46)
--- NOTE | 2017-02-25 06:59 | PROGRESS NOTE ---
DATE: 02/25/2017 SUBJECTIVE: No major issues per the nursing staff. His urine output has increased through the course of the day yesterday and through the evening. His Pavel-Synephrine has been decreasing. He is on amiodarone and TPN. OBJECTIVE: Vital Signs: The patient is currently afebrile. Most recent pulse in the 70s, most recent blood pressure is 95 systolic. The remainder of vital signs reviewed. General: No acute distress. Alert, interactive, not complaining of significant amount of abdominal pain. Cardiovascular: Regular rate and rhythm. Lungs: Some coarse sounds. Abdomen: Soft. Minimally distended. No significant signs of peritoneal irritation or peritonitis. LABORATORY DATA: White blood cell count 13, hematocrit 27, platelet count 165,000. Remainder of labs reviewed. ASSESSMENT AND PLAN: A 71-year-old male, status post small bowel resection. 1. Status post small bowel obstruction. At this time, the patient is doing relatively okay. I think the change in his leukocytosis and his hematocrit and platelet counts are likely related to resuscitation. He is not complaining of abdominal pain at this point. I do not get peritonitis on exam at this point, and given this and his overall improvement, I will get a CT scan with just oral contrast of the abdomen and pelvis to evaluate for potential leak. If he is not leaking, we may continue on tube feeds while still continuing the total parenteral nutrition. I suspect that he will have short gut syndrome. 2. Severe protein malnutrition. At this time, the patient is on total parenteral nutrition. 3. Leukocytosis. At this time, decrease may be related to resuscitation. 4. Acute renal failure. At this time, his most recent creatinine is pending. His urine output has improved with some resuscitation. We will continue to follow. cc: Zion Saucedo MD
[2017-02-25 07:26] LABS: BANDS 6 % (0-1); LYMPHS 2 % (21-51); MONO 2 % (1-9)
[2017-02-25 07:27] LABS: HYPOCHROM 2+
[2017-02-25 07:58] LABS: CALCIUM 7.3 mg/dL (8.8-10.2); POTASSIUM 3.6 mmol/L (3.5-5.1)
--- NOTE | 2017-02-25 08:19 | PROGRESS NOTE ---
DATE: 02/25/2017 SUBJECTIVE: He has less abdominal pain today. Still coughing. OBJECTIVE: Vital Signs: Blood pressure 142/78, heart rate 82, respirations 23. Afebrile. Intake 3.1 L. Output 3.3 L. General: No acute distress. Skin: Warm and dry. Neck: Veins are not distended. Trachea is midline. Heart: Regular with a soft murmur. Lungs: Equal breath sounds. No crackles. Abdomen: Less tender. Bowel sounds are present but decreased. Soft. Extremities: There is 1+ edema. No clubbing or cyanosis. LABORATORY DATA: Pending but GFR is posted at 60. IMPRESSION: Acute kidney injury. Improving again. Excellent urine output and rising glomerular filtration rate. Nothing further to add today. cc: Alan Lopez MD
--- NOTE | 2017-02-25 08:55 | Diag Imaging Result Doc PS360 ---
CT ABD/PELVIS ORAL CONTR ONLY - 02/25/2017 INDICATION: Evaluate for leak TECHNIQUE: A CT dose reduction protocol was used. COMPARISON: 02/23/2017 FINDINGS: Oral contrast was administered. This is all within the stomach, which is very dilated. There is been no progression of contrast beyond the stomach. There are trace pleural effusions. There is moderate peritoneal free air stable from prior. There is [id number] ascites stable from prior. IMPRESSION: No change from prior. The stomach is very dilated and there is no progress of contrast beyond the stomach. Stable abdominal free air and free fluid. Electronically signed by Rio Mathew 02/25/2017 8:53 AM
[2017-02-25] MEDS: CALMOSEPTINE OINTMENT TOP SCH ×4 (09:47→22:13)
[2017-02-25] MEDS: ASPIRIN PR SCH (09:47)
[2017-02-25] MEDS: ALBUMIN 25% IV SCH (09:47)
[2017-02-25] MEDS: RANEXA PO SCH (09:48)
[2017-02-25] MEDS: PRAVACHOL PO SCH (09:49)
[2017-02-25] MEDS: COREG PO SCH ×2 (09:52→22:15)
[2017-02-25] MEDS: PROTONIX IV SCH ×3 (10:15→22:12)
[2017-02-25 11:52] LABS: ALBUMIN 2.2 g/dL (3.5-5.0); TOTAL BILIRUBIN 2.43 mg/dL (0.20-1.00)
[2017-02-25] MEDS: LIPOSYN 20% 250 ML IV SCH (13:59)
[2017-02-25] MEDS: [UNRECOGNIZED DRUG - NUTRITION] IV SCH ×5 (14:34)
[2017-02-25] MEDS: LASIX IV SCH ×2 (16:50→21:58)
--- NOTE | 2017-02-25 17:13 | PROGRESS NOTE ---
DATE: 02/25/2017 SUBJECTIVE: This patient looks better today. He is more alert and oriented today. He is still complaining of abdominal pain but compared with yesterday and the day before, it is much better. No family members at the bedside. At this moment he is not on pressors and the urine output is much better as well as the BUN and creatinine. OBJECTIVE: Vital Signs: Temperature 97.7. Pulse 83. Respiratory rate 23. Blood pressure 148/74. Oxygen saturation 96 on 4 liters nasal cannula. HEENT: Head normocephalic. No trauma. PERRLA. Neck: Supple. No JVD. No masses. Central trachea. Chest: Decreased breath sounds at the bases with mild rales bilaterally. Abdomen: Soft. He had generalized tenderness to palpation mostly at the level of the periumbilical area. Extremities: No edema. No clubbing. No cyanosis. Neurological: The patient is alert and oriented x2. He is not oriented to time. He follows commands. He moves all 4 extremities. LABORATORY: WBC 13.8, hemoglobin 8.8, hematocrit 27.9, platelets 165. Sodium 138, potassium 3.6, chloride 98, bicarbonate 25, BUN 76, creatinine 1.2, glucose 283, calcium 7.3, albumin 2.2. ASSESSMENT AND PLAN: 1. Septic shock. He has been off pressors since this noon, blood pressure has been stable. We will continue with total parenteral nutrition and fluids, continue with broad spectrum antibiotics. Infectious disease department is following with this patient. WBC is getting better. 2. Ischemic bowel disease. Surgery is on board. We will continue to follow with their recommendations. 3. Acute kidney injury. Probably this is related to decreased blood pressure but this is getting much better. The urine output is around 3300 mL. 4. Anemia, likely secondary to acute blood loss. Continue to monitor. 5. Altered mental status, confusion. This is getting better, continue to monitor. 6. Left lower lobe pneumonia, probably resolved. 7. Severe protein calorie malnutrition. Continue with total parenteral nutrition. 8. Gastrointestinal prophylaxis with proton pump inhibitor. 9. This patient is do not resuscitate level 2. CRITICAL CARE TIME: Thirty-five minutes. cc: Ashish Driver MD
--- NOTE | 2017-02-25 17:25 | PROGRESS NOTE ---
DATE: 02/25/2017 PRESENT ILLNESS: The patient is status post small bowel resection and was readmitted following the surgery in a septic condition which included leukocytosis, acute renal failure and possible and possible pneumonia. The patient had free air in his abdomen. MEDICATIONS: The patient has received a combination of meropenem and micafungin for 3 days. PHYSICAL EXAMINATION: Vital Signs: Temperature is 97.5 degrees pulse 71, respirations 16, blood pressure 142/57. General: This is a somewhat ill-appearing, elderly male. He is in no acute distress. He is talking today and seems to be feeling much better. Lungs: Clear to auscultation. Cardiovascular: Heart rate is regular. Abdomen: Soft and nontender. The patient's incision is intact. It is not draining and there is no surrounding erythema. Thorax: Patient has a right-sided pacemaker in place. The site is not swollen or erythematous. LAB AND X-RAY: The CT scan of the abdomen shows a dilated stomach with free air and free fluid in the [place]. [place] [address], hemoglobin 8.8, and platelet count 165,000. Patient's blood gases show a pH of 7.43, a PO2 of 70 and a pCO2 of 42. Patient's creatinine is 1.2. The GFR is 60. ASSESSMENT AND PLAN: Patient was readmitted after small bowel resection in a septic condition which has improved. My plan will be to continue his current antimicrobial regimen. COMORBIDITIES: The patient is elderly and he had recently had a major surgery. cc: Lewis Kulkarni MD
[2017-02-25] MEDS: MYCAMINE 100 MG in NS 100 ML IV SCH (17:40)
[2017-02-26] MEDS: HUMALOG SUBQ SCH ×6 (01:12→20:41)
[2017-02-26] MEDS: CORDARONE 360 MG/D5W 360 MG/200 ML IV.SOLN IV SCH ×3 (01:20→23:56)
[2017-02-26] MEDS: DILAUDID IV PRN ×5 (01:21→23:51)
[2017-02-26] MEDS: MERREM 1 GM in NS 50 ML IV SCH ×3 (02:03→18:01)
[2017-02-26] MEDS: SOLU-CORTEF IV SCH ×4 (03:32→20:58)
[2017-02-26 05:53] LABS: BASO% 0.2 % (0.0-0.8); EOS# 0.02 X1000 (0.0-0.7); EOS% 0.2 % (0.0-10.0); HEMATOCRIT 26.7 % (42.0-52.0); HEMOGLOBIN 8.2 g/dL (14.0-18.0); IMM GRAN# 0.04 X1000 (0.0-0.04); IMM GRAN% 0.4 % (0.0-0.5); LYMPH# 0.36 X1000 (1.2-3.4); LYMPH% 3.2 % (20.5-51.1); MANUAL DIFF NEEDED? YES; MCH 21.4 PG (27-31); MCHC 30.7 g/dL (33-37); MCV 69.7 FL (81-99); MONO# 0.59 X1000 (0.11-0.59); MONO% 5.2 % (1.7-9.3); NEUT% 90.8 % (42.2-75.2); PLT 157 X1000 (130-400); RBC 3.83 XMIL (4.7-6.1)
[2017-02-26 06:01] LABS: MAGNESIUM 1.7 mg/dL (1.5-2.7)
[2017-02-26 06:26] LABS: AGAP 11; ALBUMIN 2.4 g/dL (3.5-5.0); ALKALINE PHOSPHATASE 147 U/L (32-122); BUN 60 mg/dL (8-22); CALCIUM 7.6 mg/dL (8.8-10.2); CHLORIDE 100 mmol/L (98-107); COSMO 309; GOT 35 U/L (10-34); GPT 31 U/L (10-44); POTASSIUM 2.9 mmol/L (3.5-5.1); SODIUM 144 mmol/L (136-145); TCO2 33 mmol/L (25-35); TOTAL BILIRUBIN 2.58 mg/dL (0.20-1.00); TOTAL PROTEIN 4.4 g/dL (6.3-8.3)
[2017-02-26 06:58] LABS: BANDS 20 % (0-1); LYMPHS 2 % (21-51); MONO 2 % (1-9)
[2017-02-26 07:03] LABS: HYPOCHROM 3+; LARGE PLATELETS 1+; TARGET CELLS 1+
--- NOTE | 2017-02-26 08:29 | Diag Imaging Result Doc PS360 ---
CHEST-PORTABLE - 02/26/2017 INDICATION: abnormal exam TECHNIQUE: COMPARISON: 02/23/2017 FINDINGS: Stable left central line. Stable CABG changes and pacemaker. Stable cardiomegaly. No focal infiltrates pneumothorax or large effusion. Lung volumes remain somewhat low. IMPRESSION: No change from prior. Electronically signed by Rio Mathew 02/26/2017 8:27 AM
--- NOTE | 2017-02-26 08:33 | PROGRESS NOTE ---
DATE: 02/26/2017 SUBJECTIVE: Much more alert this morning. Feels okay. He says the abdomen is feeling better. OBJECTIVE: No fevers. Pulses have been in the 70. Blood pressure 172/81, oxygen saturation 95% on 4 L. General: He is alert in no acute distress. Vitals have been stable. His abdomen is soft, mildly tender but no obvious peritonitis. Incision looks okay. Some lower extremity edema. White count is down to 11, hematocrit 26. Creatinine 0.9 and glucose is 260. Bilirubin is up to 2.58. AST/ALT 35 and 11. Alkaline phosphatase 147. ASSESSMENT AND PLAN: This 71-year-old male is status post small bowel resection involving the majority of his jejunum and ileum. He has got anastomosis and possibility of an anastomotic leak. The family and the patient elected not to pursue further surgery, although clinically he seems to be improving. We will continue to monitor him. He is on antibiotics. No fevers. He is on parenteral nutrition. Would avoid any PO at this point. Continue to follow along. cc: González Shepherd MD MTDD
[2017-02-26] MEDS: ALBUMIN 25% IV SCH (09:00)
[2017-02-26] MEDS: RANEXA PO SCH ×2 (09:00→09:39)
[2017-02-26] MEDS: LASIX IV SCH ×2 (09:01→20:58)
[2017-02-26] MEDS: ASPIRIN PR SCH (09:01)
[2017-02-26] MEDS: PRAVACHOL PO SCH ×2 (09:01→09:36)
[2017-02-26] MEDS: PROTONIX IV SCH ×2 (09:01→20:58)
[2017-02-26] MEDS: COREG PO SCH ×3 (09:01→23:39)
[2017-02-26] MEDS: CALMOSEPTINE OINTMENT TOP SCH ×4 (09:05→23:57)
[2017-02-26] MEDS ORDERED: POTASSIUM CHLORIDE 40 MEQ/SWI 40 MEQ/100 ML IVPB IV ONE (09:06)
[2017-02-26] MEDS: QUESTRAN PO SCH ×2 (09:34→22:46)
--- NOTE | 2017-02-26 11:01 | PROGRESS NOTE ---
DATE: 02/26/2017 SUBJECTIVE: This patient does look better today, he is alert and oriented. Family members at the bedside. Urine output is much better. He is answering all my questions and following commands. OBJECTIVE: Vital Signs: Temperature 97.8 degrees, pulse 71, respiratory rate 20, blood pressure 148/72 on the monitor. O2 saturation 96 on 4 L of nasal cannula. HEENT: Head normocephalic. No trauma. PERRLA. Neck: Supple. No JVD. No masses. Central trachea. Chest: Decreased breath sounds at the bases. Abdomen: Soft. Mild tenderness around the surgical wound. Extremities: 2+ lower extremity edema. No clubbing. No cyanosis. Neurological: The patient is alert and oriented x3. No focal neurological deficits. LABORATORY: WBC 11.3, hemoglobin 8.2, hematocrit 26.7, platelets 157,000. Sodium 144, potassium 2.9, chloride 100, bicarbonate 33, BUN 60, creatinine 0.9, glucose 192, calcium 7.6. Albumin 2.4. ASSESSMENT AND PLAN: 1. Septic shock, resolved. This patient has been off pressors since yesterday. Continue to monitor in the ICU. WBC is getting much better. We will continue will continue with broad spectrum antibiotics. Infectious Disease Department is following this patient. 2. Ischemic bowel disease. Surgery is on board. We will continue to follow their recommendations. For now, this patient is NPO with TPN. 3. Acute kidney injury. Resolved. This patient's urine output is better. 4. Anemia likely secondary to acute blood loss. Continue to monitor. 5. Altered mental status resolved. 6. Left lower lobe pneumonia resolved. 7. Severe protein calorie malnutrition. Continue with TPN. 8. Gastrointestinal prophylaxis with PPIs. 9. This patient is DNR level 2. CRITICAL CARE TIME: 35 minutes. cc: Ashish Driver MD
--- NOTE | 2017-02-26 13:28 | PROGRESS NOTE ---
DATE: 02/26/2017 SUBJECTIVE: He states he is feeling well today. Improving. OBJECTIVE: Blood pressure 152/58, heart rate 91, respiration 23. Afebrile. Intake is 2.6 L. Output 2.5 L. PHYSICAL EXAMINATION: No acute distress. Skin is warm and dry. Neck veins are not distended. Heart is regular without gallops. Lungs have equal breath sounds. No crackles. Abdomen soft, nontender. Bowel sounds are present. Extremities have no edema, clubbing, or cyanosis. LABORATORY DATA: Sodium 144, potassium 2.9, chloride 100, bicarbonate 33. BUN 60, creatinine 0.9. IMPRESSION: 1. Acute kidney injury, resolved. 2. Hypokalemia. This was treated by the primary team. I will sign off. If I can be of further assistance, please do not hesitate to call. cc: Alan Lopez MD
[2017-02-26] MEDS: [UNRECOGNIZED DRUG - OTHER] IV SCH ×7 (14:23)
[2017-02-26] MEDS: LIPOSYN 20% 250 ML IV SCH (14:23)
[2017-02-26] MEDS: MAGNESIUM SULFATE IV SCH ×7 (14:23)
[2017-02-26] MEDS: TPN ELECTROLYTES IV SCH ×7 (14:23)
[2017-02-26] MEDS: M V I IV SCH ×7 (14:23)
--- NOTE | 2017-02-26 16:06 | PROGRESS NOTE ---
DATE: 02/26/2017 CHIEF COMPLAINT: Irregular heartbeat and chest discomfort. SUBJECTIVE: Mr. Pereira is generally feeling better. He has some residual incisional pain in the abdomen. He has been coughing up some phlegm. Otherwise, he feels like he is improving symptomatically. OBJECTIVE: Vital Signs: Blood pressure is 162/58, temperature 98.8, pulse 91, and respirations 23. General: He is awake, alert, and chronically ill. No distress. HEENT: Unremarkable. Chest: Bilateral rhonchi. Cardiac: Heart sounds are irregularly irregular. No definite gallop or murmur. Abdomen: His abdomen is diffusely distended a mild degree and tender. Bowel sounds are present and slightly diminished. Neurological: He follows commands and moves all extremities. Extremities: The extremities show no obvious edema. LABORATORY DATA: Blood work shows his albumin level to be 2.4. BUN is 60, creatinine 0.6, potassium 2.9, and sodium 144. Hemoglobin is 8.2. MCV is low at 69. White count is 11,380. IMPRESSION: 1. Patient with ischemic bowel status post laparotomy on 02/12/2017 with extensive small bowel resection and reoperation or second look on 02/13/2017. 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 2. Chronic atrial fibrillation. 3. Coronary artery disease. 4. Ischemic cardiomyopathy with a low ejection fraction. 5. Iron deficiency anemia, macrocytic hypochromic anemia. 6. Malnutrition. RECOMMENDATIONS: Continue supportive care. The overall prognosis of this patient is pretty grim. His imaging studies indicate that his ejection fraction is 30%. He has chronic atrial fibrillation that cannot be treated with oral medicines because of the short gut syndrome. It is doubtful that he will be able to maintain an adequate nutritional status. We will leave it up to the admitting service and the surgical consultants the decision about discussing with the family and patient comfort measures only and hospice care. cc: Delano Bedolla MD [facility] CENTERCoretta
[2017-02-26] MEDS: MYCAMINE 100 MG in NS 100 ML IV SCH (18:02)
[2017-02-27] MEDS: HUMALOG SUBQ SCH ×6 (00:33→20:05)
[2017-02-27] MEDS: SOLU-CORTEF IV SCH ×4 (03:08→20:05)
[2017-02-27] MEDS: DILAUDID IV PRN ×5 (04:54→21:26)
[2017-02-27] MEDS: QUESTRAN PO SCH ×2 (06:51→22:13)
[2017-02-27] MEDS: PROTONIX IV SCH ×2 (08:00→20:04)
[2017-02-27] MEDS: LASIX IV SCH ×2 (08:00→20:04)
[2017-02-27] MEDS: MERREM 1 GM in NS 50 ML IV SCH ×4 (08:00→16:02)
[2017-02-27] MEDS: ASPIRIN PR SCH (08:00)
[2017-02-27] MEDS: CALMOSEPTINE OINTMENT TOP SCH ×4 (08:01→23:29)
[2017-02-27] MEDS: RANEXA PO SCH (08:01)
[2017-02-27] MEDS: COREG PO SCH ×2 (08:01→23:26)
[2017-02-27] MEDS: PRAVACHOL PO SCH (08:01)
[2017-02-27 08:02] LABS: BASO% 0.2 % (0.0-0.8); EOS# 0.02 X1000 (0.0-0.7); EOS% 0.2 % (0.0-10.0); HEMATOCRIT 25.6 % (42.0-52.0); HEMOGLOBIN 7.8 g/dL (14.0-18.0); IMM GRAN# 0.05 X1000 (0.0-0.04); IMM GRAN% 0.6 % (0.0-0.5); LYMPH# 0.29 X1000 (1.2-3.4); LYMPH% 3.3 % (20.5-51.1); MANUAL DIFF NEEDED? YES; MCH 21.6 PG (27-31); MCHC 30.5 g/dL (33-37); MCV 70.9 FL (81-99); MONO# 0.42 X1000 (0.11-0.59); MONO% 4.8 % (1.7-9.3); NEUT% 90.9 % (42.2-75.2); PLT 131 X1000 (130-400); RBC 3.61 XMIL (4.7-6.1)
[2017-02-27 08:10] LABS: AGAP 9; ALBUMIN 2.2 g/dL (3.5-5.0); ALKALINE PHOSPHATASE 166 U/L (32-122); BUN 47 mg/dL (8-22); CALCIUM 7.5 mg/dL (8.8-10.2); CHLORIDE 102 mmol/L (98-107); COSMO 307; GOT 57 U/L (10-34); GPT 45 U/L (10-44); MAGNESIUM 1.6 mg/dL (1.5-2.7); POTASSIUM 3.2 mmol/L (3.5-5.1); SODIUM 145 mmol/L (136-145); TCO2 34 mmol/L (25-35); TOTAL BILIRUBIN 2.56 mg/dL (0.20-1.00); TOTAL PROTEIN 4.2 g/dL (6.3-8.3)
[2017-02-27] MEDS ORDERED: POTASSIUM CHLORIDE 40 MEQ/SWI 40 MEQ/100 ML IVPB IV ONE (08:27)
[2017-02-27 09:58] LABS: BANDS 4 % (0-1); HYPOCHROM 2+; LYMPHS 2 % (21-51)
[2017-02-27] MEDS ORDERED: NS 500 ML ONE (10:08)
--- NOTE | 2017-02-27 10:38 | PROGRESS NOTE ---
DATE: 02/27/2017 SUBJECTIVE: No events. He was sleeping this morning. I did not wake him but speaking with the nurse, he is doing okay. No fevers. PHYSICAL EXAMINATION: Heart rates been in the 110s. Blood pressure 112/87, oxygen saturation is mid 90s on 3-4 L. He is resting comfortably with no increased work of breathing. LABS: I reviewed his labs. White count is 8, hematocrit is 25, platelets are 131,000. Creatinine 0.5, potassium is better at 3.2. Bilirubin is mildly elevated at 2.56. ASSESSMENT/PLAN: A 71-year-old male with multiple abdominal operations including resection of a large portion of the small bowel. He has a known likely contained perforation of his anastomosis but clinically he is doing quite well. A decision was made to not operate on this by the patient and the family, and Dr. Saucedo. Continue parental support, holding any enteral nutrition at this time, given the findings on his recent CT scan. He is on broad-spectrum antibiotics. A grim prognosis but clinically stable at this point. cc: González Shepherd MD
--- NOTE | 2017-02-27 11:01 | PROGRESS NOTE ---
DATE: 02/27/2017 SUBJECTIVE: This patient looks stable today. He is alert. He is oriented. No family members at the bedside. Urine output stable. He is answering my questions and following commands. OBJECTIVE: Vital Signs: Temperature 97.9 degrees, pulse 115, respiratory rate 21, blood pressure 112/87, oxygen saturation 94% on 3 L of nasal cannula. HEENT: Head normocephalic. No trauma. PERRLA. Neck: Supple. No JVD. No masses. Central trachea. Chest: Decreased breath sounds at the bases. Abdomen: Soft. Mild tenderness around the surgical wound. Extremities: There is 2+ lower extremity edema. No clubbing. No cyanosis. Neurological Examination: The patient is alert and oriented x3. No focal neurological deficits. Laboratory: WBC 8, hemoglobin 7.8, hematocrit 25.6, platelets 131,000. Sodium 145, potassium 3.2, chloride 102, bicarbonate 34, BUN 47, creatinine 0.5, glucose 216, calcium 7.5. Magnesium 1.6. ASSESSMENT AND PLAN: 1. Septic shock, resolved. This patient has been off pressors for the past 2 days. Continue to monitor in the intensive care unit. WBC is better. We will continue with broad spectrum antibiotics. Infectious disease department is following this patient. 2. Ischemic bowel disease. Surgery is on board. We will continue following their recommendations. For now, this patient will continue nothing per oral with total parenteral nutrition. 3. Possible short bowel syndrome. In this case, most of his medications will not be absorbed because of the decreased amount of the bowel so probably this patient will need to continue with total parenteral nutrition even as an outpatient. Of course, we are going to try to start feeding this patient here if surgery agrees with that in the near future. Overall, this patient has a poor prognosis. If he goes home or any long-term acute care with total parenteral nutrition, there is a high risk of having again sepsis or fungemia. 4. Acute kidney injury, resolved. 5. Anemia. His hemoglobin today is low. I will transfuse this patient. 6. Hypokalemia. I will replace the potassium. 7. Severe left lower lobe pneumonia, resolved. 8. Severe protein calorie malnutrition. Continue with total parenteral nutrition. 9. Gastrointestinal prophylaxis with proton pump inhibitors. 10. This patient is uv-cip-[id number] level 2. CRITICAL CARE TIME: 35 minutes. cc: Ashish Driver MD
[2017-02-27] MEDS: CORDARONE 360 MG/D5W 360 MG/200 ML IV.SOLN IV SCH (12:45)
[2017-02-27] MEDS: TPN ELECTROLYTES IV SCH ×7 (13:27)
[2017-02-27] MEDS: [UNRECOGNIZED DRUG - OTHER] IV SCH ×7 (13:27)
[2017-02-27] MEDS: MAGNESIUM SULFATE IV SCH ×7 (13:27)
[2017-02-27] MEDS: LIPOSYN 20% 250 ML IV SCH (13:27)
[2017-02-27] MEDS: M V I IV SCH ×7 (13:27)
[2017-02-27] MEDS: MYCAMINE 100 MG in NS 100 ML IV SCH (17:36)
[2017-02-28] MEDS: CORDARONE 360 MG/D5W 360 MG/200 ML IV.SOLN IV SCH ×2 (00:29→11:47)
[2017-02-28] MEDS: HUMALOG SUBQ SCH ×6 (00:45→20:02)
[2017-02-28] MEDS: MERREM 1 GM in NS 50 ML IV SCH ×3 (00:52→17:58)
[2017-02-28] MEDS: DILAUDID IV PRN ×6 (03:13→23:22)
[2017-02-28] MEDS: SOLU-CORTEF IV SCH ×4 (03:55→21:17)
--- NOTE | 2017-02-28 07:15 | Diag Imaging Result Doc PS360 ---
EXAM: CHEST-PORTABLE HISTORY: abnormal exam TECHNIQUE: Erect AP portable at 0520 COMMENT: The inspiration is suboptimal. The appearance of the chest has not changed appreciably since 01/26/2017. IMPRESSION: Stable chest. Electronically signed by Darwin Dang 02/28/2017 7:12 AM
--- NOTE | 2017-02-28 07:21 | PROGRESS NOTE ---
DATE: 02/28/2017 SUBJECTIVE: No major issues reported by the nursing staff. Patient did report some right lower quadrant tenderness. He is having bowel movements. His urine output has been increasing. He did get Lasix. He is off the Pavel-Synephrine but still on amiodarone. I reviewed his CT scan from Tuesday. Contrast did not make it past the stomach to evaluate if there is an active leak, but he still had a pneumoperitoneum. His abdominal film this morning is still pending but I did not see contrast outside the intestinal tract. I do not see a specifically dilated stomach. There is air in the colon. OBJECTIVE: Vital Signs: Patient is currently afebrile. Most recent heart rate in the 107s which looks more consistent with potential atrial fib. Blood pressure 119/79. O2 saturation 96%. General: No acute distress. Resting comfortably. Cardiovascular: Irregularly irregular. Lungs: Some coarse breath sounds. Abdomen: Soft, mildly distended. Appropriately tender. No peritoneal signs. Incision is well healed. LABORATORY: From this morning still pending. His albumin from yesterday was 2.2 which is up from previous days. His white blood cell count is 8, which is down from 11. Hematocrit is 25. ASSESSMENT/PLAN: A 71-year-old male status post small bowel resection. 1. Status post small bowel resection. At this time, patient is doing relatively okay all things considered. His repeat CT scan done on Tuesday did not show active extravasation but it also did not have contrast that made it down to the anastomosis to really evaluate this fully. He does still have free air and some fluid down in his pelvis. He is having bowel movements. At this time, I would still like to hold off on any kind of p.o. intake. May want to consider a repeat CT scan with p.o. and IV contrast here at the end of the week. Regardless I still want the patient to stay on TPN and suspect he will have short-gut syndrome. 2. Severe protein malnutrition. At this time, patient is on TPN. We will continue thus far. If his repeat CT scan later on in the week shows no extravasation, can consider p.o. intake but I suspect he will not have the ability to absorb enough to remain purely on p.o. intake at home. 3. Leukocytosis at this time is declining. 4. Acute renal failure. At this time his creatinine is improving. His urine output is improving. I suspect this is related to resuscitation. We will continue to monitor. cc: Zion Saucedo MD
--- NOTE | 2017-02-28 07:28 | Diag Imaging Result Doc PS360 ---
EXAM: KUB ABDOMEN HISTORY: distention TECHNIQUE: KUB portable at 0520 COMMENT: There are surgical skin clips from the epigastrium to the pelvis. There are surgical clips in the right upper quadrant. There is gas throughout the colon. No appreciable small bowel or gastric distention is present. Much less stool is present in the colon than on the previous study of 02/04/2017. There is extensive atherosclerotic calcification in the aorta and iliac arteries. No evidence of organomegaly or mass is present. IMPRESSION: Postsurgical changes. Nonspecific abdomen. Electronically signed by Darwin Dang 02/28/2017 7:26 AM
[2017-02-28 07:30] LABS: BASO% 0.8 % (0.0-0.8); EOS# 0.01 X1000 (0.0-0.7); EOS% 0.1 % (0.0-10.0); HEMOGLOBIN 10.2 g/dL (14.0-18.0); IMM GRAN# 0.11 X1000 (0.0-0.04); IMM GRAN% 0.9 % (0.0-0.5); LYMPH# 0.59 X1000 (1.2-3.4); LYMPH% 4.8 % (20.5-51.1); MANUAL DIFF NEEDED? YES; MCH 22.5 PG (27-31); MCHC 30.9 g/dL (33-37); MCV 72.8 FL (81-99); MONO# 0.29 X1000 (0.11-0.59); MONO% 2.4 % (1.7-9.3); PLT 117 X1000 (130-400); RBC 4.53 XMIL (4.7-6.1)
--- NOTE | 2017-02-28 07:31 | PROGRESS NOTE ---
DATE: 02/28/2017 PRESENT ILLNESS: The patient was readmitted to the hospital following small bowel resection in a septic condition with leukocytosis, acute renal failure, and possible pneumonia. He also had free air in his abdomen, which could have been from his previous surgery. MEDICATIONS: This is day 6 of treatment with micafungin and meropenem. PHYSICAL EXAMINATION: Vital Signs: Temperature is 97.8 degrees, pulse 97, respirations 9, blood pressure 97/74. Generally: This is a somewhat ill-appearing elderly male. He is in no acute distress. Lungs: Clear to auscultation. Cardiovascular: Irregular heart rate. Abdomen: Soft and nontender. The patient's incision is intact. Thorax: The patient has a pacemaker present on the right side. The area is not erythematous or tender. LABORATORIES AND X-RAY: Chest x-ray shows clear lung burgos. The patient's CBC shows a white count of 8800, hemoglobin 7.8, and platelet count 131,000. Creatinine is 0.5. GFR is greater than 60. ASSESSMENT AND PLAN: The patient was septic, but he is improving quite a bit. My plan is to continue with micafungin and meropenem. COMORBIDITIES: The patient's comorbidities, he is elderly and he recently had surgery. cc: Lewis Kulkarni MD
[2017-02-28] MEDS: QUESTRAN PO SCH ×2 (07:40→18:13)
[2017-02-28 07:50] LABS: ALBUMIN 2.5 g/dL (3.5-5.0); DIRECT BILIRUBIN 1.4 mg/dL (0.00-0.20); MAGNESIUM 1.7 mg/dL (1.5-2.7); PREALBUMIN 8.9 mg/dL (20-40); TOTAL BILIRUBIN 2.6 mg/dL (0.20-1.00); TOTAL PROTEIN 4.4 g/dL (6.3-8.3)
[2017-02-28 07:53] LABS: AGAP 7; BUN 50 mg/dL (8-22); CALCIUM 7.5 mg/dL (8.8-10.2); CHLORIDE 101 mmol/L (98-107); COSMO 308; POTASSIUM 3.4 mmol/L (3.5-5.1); SODIUM 144 mmol/L (136-145); TCO2 36 mmol/L (25-35)
[2017-02-28 07:56] LABS: BANDS 18 % (0-1); EOS 2 % (1-10)
[2017-02-28 07:57] LABS: HYPOCHROM 2+; LARGE PLATELETS 1+; LYMPHS 2 % (21-51); MONO 2 % (1-9)
[2017-02-28] MEDS: LASIX IV SCH ×2 (09:01→21:17)
[2017-02-28] MEDS: PROTONIX IV SCH ×2 (09:02→21:17)
[2017-02-28] MEDS: SODIUM CHLORIDE 0.9% INJ SCH ×2 (09:02→21:17)
[2017-02-28] MEDS: ASPIRIN PR SCH (09:04)
[2017-02-28] MEDS: CALMOSEPTINE OINTMENT TOP SCH ×4 (09:04→23:22)
[2017-02-28] MEDS: COREG PO SCH ×3 (09:05→21:20)
[2017-02-28] MEDS: PRAVACHOL PO SCH (09:06)
[2017-02-28] MEDS: RANEXA PO SCH (09:06)
[2017-02-28] MEDS: [UNRECOGNIZED DRUG - OTHER] IV SCH ×7 (14:56)
[2017-02-28] MEDS: M V I IV SCH ×7 (14:56)
[2017-02-28] MEDS: MAGNESIUM SULFATE IV SCH ×7 (14:56)
[2017-02-28] MEDS: LIPOSYN 20% 250 ML IV SCH (14:56)
[2017-02-28] MEDS: TPN ELECTROLYTES IV SCH ×7 (14:56)
[2017-02-28] MEDS ORDERED: MAGNESIUM SULFATE 2 GM/S.W.I. 2 GM/50 ML IVPB IV ONE (15:11)
[2017-02-28] MEDS ORDERED: POTASSIUM PHOSPHATE 30 MMOL in NS 250 ML IV ONE (16:00)
[2017-02-28] MEDS: MYCAMINE 100 MG in NS 100 ML IV SCH (18:05)
[2017-03-01] MEDS: CORDARONE 360 MG/D5W 360 MG/200 ML IV.SOLN IV SCH ×2 (00:26→12:46)
[2017-03-01] MEDS: MERREM 1 GM in NS 50 ML IV SCH ×3 (00:29→16:38)
[2017-03-01] MEDS: HUMALOG SUBQ SCH ×6 (00:29→20:18)
[2017-03-01] MEDS: DILAUDID IV PRN ×6 (02:53→21:07)
[2017-03-01] MEDS: SOLU-CORTEF IV SCH ×4 (02:59→20:53)
[2017-03-01 06:20] LABS: AGAP 10; BASO% 0.5 % (0.0-0.8); BUN 60 mg/dL (8-22); CALCIUM 7.3 mg/dL (8.8-10.2); CHLORIDE 100 mmol/L (98-107); COSMO 312; EOS# 0.01 X1000 (0.0-0.7); EOS% 0.1 % (0.0-10.0); HEMATOCRIT 32.8 % (42.0-52.0); IMM GRAN# 0.21 X1000 (0.0-0.04); IMM GRAN% 1.4 % (0.0-0.5); LYMPH# 0.77 X1000 (1.2-3.4); LYMPH% 5.1 % (20.5-51.1); MANUAL DIFF NEEDED? YES; MCH 22.5 PG (27-31); MCHC 30.5 g/dL (33-37); MCV 73.7 FL (81-99); MONO# 0.31 X1000 (0.11-0.59); MONO% 2.1 % (1.7-9.3); NEUT% 90.8 % (42.2-75.2); PLT 125 X1000 (130-400); POTASSIUM 3.9 mmol/L (3.5-5.1); RBC 4.45 XMIL (4.7-6.1); SODIUM 144 mmol/L (136-145); TCO2 34 mmol/L (25-35)
[2017-03-01 06:21] LABS: PREALBUMIN 8.2 mg/dL (20-40)
[2017-03-01] MEDS: QUESTRAN PO SCH ×2 (07:26→18:29)
[2017-03-01 07:50] LABS: BANDS 9 % (0-1); EOS 3 % (1-10); LYMPHS 3 % (21-51); MONO 7 % (1-9); NRBC 1 % (0-0); POLYCHROM OCCASIONAL
[2017-03-01 07:51] LABS: TARGET CELLS OCCASIONAL
--- NOTE | 2017-03-01 08:13 | PROGRESS NOTE ---
DATE: 03/01/2017 SUBJECTIVE: No major issues reported by the nursing staff. No bowel movement in the last 24 hours. His urine output has been okay. OBJECTIVE: Vital Signs: Patient is currently afebrile. The most recent pulse is in the 100s. Blood pressure 100/73. He is currently on amiodarone. General: No acute distress. Resting comfortably. Cardiovascular: Irregularly irregular. Lungs: Some coarse sounds noted. Abdomen: Soft. Some distention, appropriately tender. No active drainage but there is some drainage noted on dressing in his midline. Otherwise the incision looks like it is healing well. LABORATORY: Reviewed from this morning. White blood cell count is 15 which is up slightly from 12. Hematocrit 32, platelet count 125,000, preop BUN is 8.2. Remainder of labs reviewed. ASSESSMENT AND PLAN: A 31-year-old male status post small bowel resection. 1. Small-bowel resection. At this time, patient is doing relatively okay. His white blood cell count is starting to be elevated up to 15. The CT scan done Tuesday was re-reviewed. I suspect that he might be developing an abscess where the fluid collections were located, and the white blood cell count continues to be elevated. May need to consider repeat CT scan to see if there is a drainable fluid collection. He does have some drainage coming out of his midline but does not appeared to be significant. I will start him on some sips of clears and it okay for him to have hard candy. We will need to monitor if the drainage increases out of his midline suggesting maybe development of a fistula. If he does develop a fistula, I still think that he would be best managed nonoperatively because it would be essentially the same as if we did for surgical intervention because we would have to bring up a very proximal jejunal ostomy. I still want to keep the patient on TPN for right now. 2. Severe protein malnutrition. At this time, patient is on TPN. 3. Leukocytosis. At this time it has been increasing slightly. Please see above. May need a repeat CT scan in the next several days and potentially at the end of the week. 4. Acute renal failure. At this time his creatinine is improving. We will continue to monitor. cc: Zion Saucedo MD
[2017-03-01] MEDS: PROTONIX IV SCH ×2 (08:49→20:53)
[2017-03-01] MEDS: SODIUM CHLORIDE 0.9% INJ SCH ×2 (08:49→20:53)
[2017-03-01] MEDS: LASIX IV SCH (08:50)
[2017-03-01] MEDS: ASPIRIN PR SCH (08:52)
[2017-03-01] MEDS: CALMOSEPTINE OINTMENT TOP SCH ×4 (08:53→21:08)
[2017-03-01] MEDS: COREG PO SCH ×2 (08:53→20:12)
[2017-03-01] MEDS: RANEXA PO SCH (08:54)
[2017-03-01] MEDS: PRAVACHOL PO SCH (08:54)
[2017-03-01 12:20] LABS: DIRECT BILIRUBIN 1.1 mg/dL (0.00-0.20); TOTAL BILIRUBIN 2.04 mg/dL (0.20-1.00); TOTAL PROTEIN 3.9 g/dL (6.3-8.3)
[2017-03-01] MEDS: LIPOSYN 20% 250 ML IV SCH (14:14)
[2017-03-01] MEDS: M V I IV SCH ×7 (14:14)
[2017-03-01] MEDS: [UNRECOGNIZED DRUG - OTHER] IV SCH ×7 (14:14)
[2017-03-01] MEDS: MAGNESIUM SULFATE IV SCH ×7 (14:14)
[2017-03-01] MEDS: TPN ELECTROLYTES IV SCH ×7 (14:14)
[2017-03-01] MEDS ORDERED: NS 250 ML IV ONE (16:22)
--- NOTE | 2017-03-01 16:33 | PROGRESS NOTE ---
DATE: 03/01/2017 SUBJECTIVE: The patient is resting comfortably in bed. He has no complaints. No acute events noted overnight. OBJECTIVE: Vital Signs: Temperature 97 degrees, blood pressure 105/46, heart rate 117, respirations 20, O2 saturations 97% on 4 L nasal cannula. General: This is an elderly male lying comfortably in bed in no acute distress. Head: Normocephalic, atraumatic. Heart: S1, S2. Normal. Irregularly irregular rhythm and rate. Lungs: Equal air entry bilaterally, no crackles, no rales. Abdomen: Positive bowel sounds. Patient's incision is clean and dry. Extremities: Trace pedal edema, no cyanosis, no calf tenderness. Neuro: Patient is alert and oriented x3. LAB: White blood cell count 15, hemoglobin 10, hematocrit 32, platelets 125,000. Sodium 144, potassium 3.9, chloride 100, CO2 34, BUN 60, creatinine 0.7, glucose 243, calcium 7.3, magnesium 2, phosphorus 3.7. ASSESSMENT AND PLAN: 1. Status post exploratory laparotomy with bowel resection x2 and small-bowel anastomosis secondary to ischemic bowel. Management as per the general surgeon. 2. Chronic atrial fibrillation. Continue on the amiodarone drip. Cardiology is following. 3. Suspected short-gut syndrome. Aware. The patient is currently on TPN. 4. Leukocytosis. The patient's white blood cell count is slightly elevated. Will continue on Merrem and micafungin as directed by Dr. Lewis Kulkarni. 5. Diabetes mellitus type 2. Will add Lantus to the patient's insulin regimen. 6. Morbid obesity. Aware. 7. Pneumonia. Continue on the current IV antibiotic regimen. 8. Acute kidney injury. Resolved. 9. Septic shock. Resolved. 10. Severe protein calorie malnutrition. Continue on TPN. 11. Gastrointestinal prophylaxis. Continue on Protonix. 12. Deep vein thrombosis prophylaxis. Continue with SCDs. cc: Carolyn Salvador MD
[2017-03-01] MEDS ORDERED: VANCOMYCIN IV PER PHARMACY MISC SCH (17:15)
[2017-03-01] MEDS: NEO-SYNEPHRINE 50 MG in NS 250 ML IV SCH (17:20)
--- NOTE | 2017-03-01 17:32 | PROGRESS NOTE ---
DATE: 03/01/2017 PRESENT ILLNESS: The patient was readmitted to the hospital following small bowel resection with possible sepsis and leukocytosis, acute renal failure and possible pneumonia. His white count has been steadily increasing and I am concerned that he may have a bacteremia originated from his left internal jugular catheter. MEDICATIONS: This is day 7 of treatment with micafungin and meropenem. PHYSICAL EXAMINATION: Vital Signs: Temperature is 97.5 degrees, pulse 117, respirations 29, blood pressure 80/44. General: This is an ill-appearing elderly male. He is in no acute distress. Lungs: Clear to auscultation. Cardiovascular: Heart rate was irregular. Abdomen: Soft and nontender. The incision is intact. There is a very small amount of clear, yellow drainage coming from the lower part of the incision. Thorax: The patient has a pacemaker present on the right side. The site is not tender or draining. Musculoskeletal: The patient has a left-sided internal jugular catheter. The site is not swollen or red. LABORATORY RESULTS AND CHEST X-RAY RESULTS: There is no new chest x-ray today. The CBC shows a white count of 15,060, hemoglobin 10, platelet count 125,000. Creatinine 0.7. GFR is greater than 60. Liver function studies are elevated, but they are improving now. ASSESSMENT AND PLAN: 1. The patient has sepsis. He is doing fairly well, but his white count continues to increase. I am concerned that this may be due to infection from his left internal jugular catheter. I have ordered 2 blood cultures and empirically started the patient on vancomycin. 2. Comorbidities include that he is elderly and he recently had surgery. cc: Lewis Kulkarni MD
[2017-03-01] MEDS: MYCAMINE 100 MG in NS 100 ML IV SCH (17:33)
[2017-03-01] MEDS ORDERED: VANCOMYCIN 2 GM in NS 500 ML IV SCH (20:00)
[2017-03-01] MEDS: LOVENOX SUBQ SCH (20:52)
[2017-03-02] MEDS: LASIX IV SCH ×3 (01:21→20:45)
[2017-03-02] MEDS: MERREM 1 GM in NS 50 ML IV SCH ×3 (01:22→17:11)
[2017-03-02] MEDS: CALMOSEPTINE OINTMENT TOP SCH ×6 (01:22→22:53)
[2017-03-02 01:39] LABS: BASO% 0.7 % (0.0-0.8); EOS# 0.01 X1000 (0.0-0.7); HEMATOCRIT 36.9 % (42.0-52.0); HEMOGLOBIN 11.4 g/dL (14.0-18.0); IMM GRAN% 2.1 % (0.0-0.5); LYMPH# 1.73 X1000 (1.2-3.4); LYMPH% 7.2 % (20.5-51.1); MANUAL DIFF NEEDED? YES; MCH 22.7 PG (27-31); MCHC 30.9 g/dL (33-37); MCV 73.4 FL (81-99); MONO# 0.55 X1000 (0.11-0.59); MONO% 2.3 % (1.7-9.3); NEUT% 87.7 % (42.2-75.2); PLT 123 X1000 (130-400); RBC 5.03 XMIL (4.7-6.1)
[2017-03-02] MEDS: HUMALOG SUBQ SCH ×6 (01:45→20:56)
[2017-03-02 01:54] LABS: CALCIUM 7.1 mg/dL (8.8-10.2); POTASSIUM 4.1 mmol/L (3.5-5.1)
[2017-03-02] MEDS: SOLU-CORTEF IV SCH ×4 (03:47→20:48)
[2017-03-02] MEDS: NEO-SYNEPHRINE 50 MG in NS 250 ML IV SCH (03:49)
[2017-03-02] MEDS ORDERED: ALBUMIN 25% IV ONE ×2 (06:17→08:00)
[2017-03-02] MEDS: NS 1,000 ML IV SCH (06:28)
[2017-03-02] MEDS: CORDARONE 360 MG/D5W 360 MG/200 ML IV.SOLN IV SCH (06:31)
--- NOTE | 2017-03-02 06:38 | PROGRESS NOTE ---
DATE: 03/02/2017 SUBJECTIVE: Patient started back on Pavel-Synephrine yesterday. They have had to increase it up to 90 mcg. He is still on amiodarone. He has been tolerating his sips of clears. His output from his midline has not increased significantly. It does not look bilious at this time. It is like serosanguineous. It does not look like infection. His incision does not look like there is infection. He did have a bowel movement yesterday. His urine output also has decreased slightly. OBJECTIVE: Vital Signs: Patient is currently afebrile. Most recent pulse is 92. Most recent respiratory rate 27. Most recent blood pressure 91/69. He is currently on Pavel-Synephrine. General Examination: Resting comfortably. Appears in no acute distress. Cardiovascular: Regular rate and rhythm with amiodarone and Pavel-Synephrine. Lungs: Grossly clear. Abdomen: Soft, mildly distended. Incision is well healed. There is some mild serous drainage noted around his umbilicus. Does not have a bile tinge to it. There is no erythema noted. Is and Os: His urine looks concentrated. Laboratory: White blood cell count is 24 which is up from 15, hematocrit 36, platelet count 125,000. BUN 75 and creatinine 1.6, both are increased. ASSESSMENT AND PLAN: A 71-year-old, male status post small-bowel obstruction. 1. Small bowel obstruction. At this time, patient has had a slight decline. He had to go back on pressors. His white blood cell count is trending up. Blood cultures have been sent. He has had his left internal jugular vein central line in place since his 2nd operation. We need to follow up with the preliminaries on those cultures. If positive, I would recommend removing and placing a PICC line. He has had bilateral lower extremity femoral bypass which makes a femoral line difficult. He also has had a pacemaker placed on his right side which makes right-sided catheterization difficult so a PICC line might be a good compromise. At this time, given the characteristics of the fluid coming from his midline, I do not think that he has developed a fistula, although I cannot completely rule this out. I will keep him on his current sips of clears. 2. Severe protein malnutrition. At this time, patient is on TPN. Would recommend to continue. 3. Leukocytosis. At this time, the patient is increasing again. He has blood cultures pending. He is on multiple antibiotics and antifungals. If it persists again tomorrow, I would recommend a CT scan with p.o. contrast only. I suspect we need to hold off on his IV contrast given his creatinine going up and his urine output going down. I am also going to start the patient on some maintenance fluids. I suspect he is periodically getting dehydrated with the volume that he needs. 4. Acute renal failure. Please see above. His creatinine is increasing. I will start him on some on low-dose IV fluids and continue to monitor. cc: Zion Saucedo MD
[2017-03-02] MEDS: QUESTRAN PO SCH ×2 (06:48→18:06)
[2017-03-02 07:23] LABS: URINE SOURCE CATH
[2017-03-02 07:39] LABS: BANDS 38 % (0-1); LYMPHS 3 % (21-51); MONO 2 % (1-9); NRBC 4 % (0-0); POLYCHROM 1+
[2017-03-02 07:40] LABS: BILIRUBIN URINE SMALL (NEGATIVE); BLOOD URINE TRACE (NEGATIVE); COLOR YELLOW; GLUCOSE URINE TRACE mg/dL (NEGATIVE); LEUKOCYTES URINE NEGATIVE (NEGATIVE); NITRITE URINE NEGATIVE (NEGATIVE); PROTEIN URINE 50 mg/dL (NEGATIVE); SP GRAVITY URINE 1.028; TURBIDITY URINE HAZY (CLEAR); UROBILINOGEN URINE 2 mg/dL (NORMAL)
[2017-03-02 07:51] LABS: UR EPITHELIAL CELLS <10 /HPF (<10); URINE BACTERIA NEGATIVE /HPF; URINE MICRO REVIEW NEEDED? YES; URINE WBC <10 /HPF (<10)
[2017-03-02] MEDS: DILAUDID IV PRN ×3 (07:54→22:46)
[2017-03-02] MEDS: ASPIRIN PR SCH (08:02)
[2017-03-02] MEDS: COREG PO SCH ×2 (08:02→22:46)
[2017-03-02] MEDS: PROTONIX IV SCH ×2 (08:02→22:53)
[2017-03-02] MEDS: PRAVACHOL PO SCH (08:02)
[2017-03-02] MEDS: RANEXA PO SCH (08:04)
[2017-03-02 08:10] LABS: URINE CASTS NONE SEEN
[2017-03-02 09:40] LABS: CALCIUM 7.4 mg/dL (8.8-10.2); MAGNESIUM 2.1 mg/dL (1.5-2.7); POTASSIUM 4.3 mmol/L (3.5-5.1)
[2017-03-02] MEDS: ZAROXOLYN PO SCH (11:30)
[2017-03-02] MEDS: TPN ELECTROLYTES IV SCH ×7 (14:14)
[2017-03-02] MEDS: M V I IV SCH ×7 (14:14)
[2017-03-02] MEDS: MAGNESIUM SULFATE IV SCH ×7 (14:14)
[2017-03-02] MEDS: [UNRECOGNIZED DRUG - OTHER] IV SCH ×7 (14:14)
[2017-03-02] MEDS: LIPOSYN 20% 250 ML IV SCH (14:14)
--- NOTE | 2017-03-02 14:21 | PROGRESS NOTE ---
DATE: 03/02/2017 SUBJECTIVE: The patient is awake and alert. He remains on a Pavel-Synephrine drip. Also, his urine output has decreased over the last 24 hours. OBJECTIVE: Vital Signs: Temperature 97.1 degrees, blood pressure 141/83, heart rate 87, respirations 26. O2 saturations 92% on 4 L nasal cannula. Intake 2.7 liters. Output 555 mL. General: This is a morbidly obese male, lying in bed, in no acute distress. Head: Normocephalic, atraumatic. Heart: S1, S2. Normal. Irregularly irregular rhythm. Lungs: Equal air entry bilaterally. No crackles. No rales. Abdomen: Positive bowel sounds. Soft, nondistended. Extremities: +1 edema. No cyanosis. No calf tenderness. Neurologic: The patient is alert and oriented x3. LABORATORY DATA: White blood cell count 24, hemoglobin 11, hematocrit 36, platelets 123,000. Sodium 141, potassium 4.3, chloride 98, CO2 of 29. BUN 85, creatinine 1.5, glucose 221. Calcium 7.4. ASSESSMENT AND PLAN: 1. Sepsis. The patient currently has blood cultures pending. Continue on IV antibiotic regimen as directed by Dr. Kulkarni. 2. Status post exploratory laparotomy with bowel resection x2 and small bowel anastomosis secondary to ischemic bowel. Management as per the general surgeon. 3. Chronic atrial fibrillation. Continue on amiodarone. Cardiology is following. 4. Short-gut syndrome, aware. 5. Acute kidney injury. Multifactorial. The patient's urine output has decreased over the last 24 hours. He is hypotensive and septic and back on pressor support. Will check urine studies. and reconsult . 6. Hypotension. Will continue to try and wean the patient off of the Pavel- Synephrine. 7. Leukocytosis. This is worse today. IV antibiotics as per Dr. Kulkarni. 8. Diabetes mellitus, type 2. Continue on sliding scale insulin. 9. Severe protein calorie malnutrition. The patient is currently on total parenteral nutrition. 10. Gastrointestinal prophylaxis. Continue on IV Protonix. 11. Deep vein thrombosis prophylaxis. Continue with sequential compression devices. 12. The patient is a DNR LEVEL 2. The patient remains critically ill with a high risk of mortality. cc: MD JIM Burks
--- NOTE | 2017-03-02 14:30 | PROGRESS NOTE ---
DATE: 03/02/2017 SUBJECTIVE: I was asked to see Mr. Pereira again because over the last 24 hours his urine output has dropped and his creatinine has risen from 0.7 on yesterday to 1.5 today. He has not really responded to diuretic therapy. He personally denies any new symptoms. No abdominal pain. No nausea or vomiting. No shortness of breath. He has been treated with IV diuretics and oral metolazone without any benefit. OBJECTIVE: Vital Signs: Blood pressure 145/114, heart rate 78, respirations 24, afebrile. Intake 3.7 L. Output 600 mL. General Appearance: Elderly man, lying at 30 degrees left lateral decubitus. No distress. Skin: Warm and dry. Conjunctivae are pink. Neck: Neck veins are distended. Trachea is midline. Heart: Regular with a gallop. Lungs: Have equal breath sounds. No crackles. Abdomen: Distended and soft. Bowel sounds are diminished or absent. Nontender. Extremities: Have 2+ edema extending up onto the abdominal wall. LABORATORY DATA: Sodium 141, potassium 4.3, chloride 98, bicarbonate 29. BUN 85, creatinine 1.5. IMPRESSION: Acute kidney injury. He has 2 recent episodes of acute kidney injury. He has poor glomerular autoregulation and episodes of hypotension have resulted in decreased renal perfusion pressure and decreased GFR. The last time he responded to maneuvers, that increased his volume status. I expect the same condition is present currently. Urine electrolytes could be difficult to interpret, given that he has been given diuretics. I will forego this. I agree with giving albumin. I will give further doses over the next 2-3 days and observe his response. He is clinically volume overloaded despite his low urine output. Certainly, he is at risk to develop recurrent acute tubular necrosis in the context of hypotension, because his impaired autoregulation and tissue at risk. cc: Alan Lopez MD
--- NOTE | 2017-03-02 17:37 | PROGRESS NOTE ---
DATE: 03/02/2017 PRESENT ILLNESS: The patient is status post surgery for a small-bowel obstruction. He appeared to be septic. He has leukocytosis and acute renal failure and possible pneumonia. His white count is increasing steadily. MEDICATIONS: This is day 8 of treatment with micafungin and meropenem. Vancomycin was started yesterday, however with his rising creatinine I think we need to stop it. PHYSICAL EXAMINATION: Vital Signs: Temperature is 97.6 degrees, pulse 78, respiration is 24, blood pressure 145/114. Generally: This is an ill-appearing, elderly male. He is in no acute distress. Lungs: Clear to auscultation. Cardiovascular: Regular heart rate. Abdomen: Soft and not tender. Incision is intact. Thorax: Patient has a pacemaker present on the right side. The pacemaker site is not swollen or red. Neck: Patient has a left- sided internal jugular catheter in place. The catheter site is not erythematous or swollen. LAB AND X-RAY: CBC today shows an increase in the white count to 24,080, hemoglobin 11.4, and platelet count 123,000. Creatinine is 1.5. The GFR is 46. Urinalysis shows no white cells or bacteria. Culture from the IV catheters is negative. Blood cultures are pending. Creatinine is 1.5. ASSESSMENT AND PLAN: Patient has sepsis. My plan would be to continue his meropenem and micafungin, and discontinue vancomycin because of the rise in creatinine. COMORBIDITIES: Include being elderly, and recently having abdominal surgery. cc: Lewis Kulkarni MD MTDD
[2017-03-02] MEDS: MYCAMINE 100 MG in NS 100 ML IV SCH (18:06)
[2017-03-02] MEDS: LOVENOX SUBQ SCH (20:49)
[2017-03-02] MEDS: SODIUM CHLORIDE 0.9% INJ SCH (22:53)
[2017-03-03] MEDS: HUMALOG SUBQ SCH ×6 (00:16→21:22)
[2017-03-03] MEDS: MERREM 1 GM in NS 50 ML IV SCH ×3 (01:04→16:49)
[2017-03-03] MEDS: HALDOL IV PRN ×2 (02:15→23:21)
[2017-03-03 02:51] LABS: BASO% 0.3 % (0.0-0.8); EOS# 0.01 X1000 (0.0-0.7); EOS% 0.1 % (0.0-10.0); HEMATOCRIT 30.5 % (42.0-52.0); HEMOGLOBIN 9.6 g/dL (14.0-18.0); IMM GRAN# 0.19 X1000 (0.0-0.04); LYMPH% 4.3 % (20.5-51.1); MANUAL DIFF NEEDED? YES; MCH 22.9 PG (27-31); MCHC 31.5 g/dL (33-37); MCV 72.8 FL (81-99); MONO# 0.36 X1000 (0.11-0.59); MONO% 1.9 % (1.7-9.3); NEUT% 92.4 % (42.2-75.2); PLT 89 X1000 (130-400); RBC 4.19 XMIL (4.7-6.1)
[2017-03-03 02:59] LABS: ALBUMIN 1.8 g/dL (3.5-5.0); DIRECT BILIRUBIN 1.2 mg/dL (0.00-0.20); TOTAL BILIRUBIN 2.46 mg/dL (0.20-1.00); TOTAL PROTEIN 4.1 g/dL (6.3-8.3)
[2017-03-03 03:15] LABS: CALCIUM 7.1 mg/dL (8.8-10.2); POTASSIUM 4.3 mmol/L (3.5-5.1)
[2017-03-03] MEDS: SOLU-CORTEF IV SCH ×4 (03:22→21:21)
[2017-03-03 03:43] LABS: BANDS 34 % (0-1); HYPOCHROM OCCASIONAL; LYMPHS 4 % (21-51); MONO 4 % (1-9)
[2017-03-03] MEDS: NS 1,000 ML IV SCH (06:28)
[2017-03-03] MEDS: QUESTRAN PO SCH ×2 (06:33→20:05)
--- NOTE | 2017-03-03 07:16 | Diag Imaging Result Doc PS360 ---
CHEST-PORTABLE - 03/03/2017 INDICATION: Coarse Breath Sounds TECHNIQUE: COMPARISON: 02/28/2017 FINDINGS: Stable pacemaker and central line. Stable CABG changes. Stable significant cardiomegaly. Stable hazy infiltrates/edema in the lung bases. There are some stable free air underneath the right hemidiaphragm which has been present for several days now. IMPRESSION: No change from prior. Electronically signed by Rio Mathew 03/03/2017 7:14 AM
[2017-03-03] MEDS: VENTOLIN HFA INH PRN (07:45)
--- NOTE | 2017-03-03 07:45 | PROGRESS NOTE ---
DATE: 03/03/2017 SUBJECTIVE: Patient is off his Pavel-Synephrine, off his amiodarone, but he has increased confusion. He has been tolerating sips of clears. His urine output has increased with the albumin and intermittent fluid bolus. He still is having some drainage coming from his midline but it looks serosanguineous and it does not look bilious. Again, the major change in him is that he has been off the Pavel-Synephrine and amiodarone but had increased confusion per the nurse. OBJECTIVE: Vital Signs: Patient is currently afebrile. Most recent temperature 97.2 degrees, most recent pulse 86, most recent respiratory rate 16, most recent blood pressure 123/89, O2 saturation 92%. General Examination: No acute distress. Resting comfortably. Cardiovascular: Regular rate and rhythm. Lungs: Some coarse sounds noted bilaterally. Abdomen: Soft, mildly distended. Incision is well healed. There is some mild serous drainage noted at the mid aspect of the incision. No erythema. Is and Os: His urine output has increased and appears less concentrated. Laboratory: White blood cell count is now 18 which is down from 24, hematocrit is 35, platelet count 89,000. BUN is 97, creatinine 2, albumin 1.8. ASSESSMENT AND PLAN: A 71-year-old, male status post small bowel resection. 1. Small bowel resection. At this time, the patient has had a relatively stable course, although his mental status has declined. His urine output is improving secondary to the intravenous fluid boluses. Thus far, his cultures from his blood have been negative. I suspect we have some dilutional aspect of his white blood cell count and hematocrit that explains his decrease. At this time, would continue to monitor him. I am going to ask dietary to give some blue food coloring in his clear liquids to see if he is showing any signs of fistula development. If he does have blue food coloring come out his midline, want to keep him nothing per oral completely. 2. Severe protein malnutrition. At this time, he is on TPN. Recommend to continue. His albumin is still low. His prealbumin is still low. 3. Leukocytosis. Please see above but his white blood cell count has slightly decreased. This may be dilutional. His blood cultures are negative thus far. I will continue to monitor him closely. We will hold off right now on CT scan. 4. Acute renal failure. At this time, his urine output is increased but his BUN and creatinine have also increased. Dr. Lopez is on board. I recommend to continue resuscitation, although his lungs have sounded a little more coarse today which may represent that he is suffering the side effects of resuscitation so may need to be judicious with application of volume resuscitation. He may just need albumin for its oncotic potential. I will continue to follow with you. cc: Zion Saucedo MD
[2017-03-03] MEDS: ALBUMIN 25% IV SCH (09:06)
[2017-03-03] MEDS: PROTONIX IV SCH ×2 (09:06→21:21)
[2017-03-03] MEDS: SODIUM CHLORIDE 0.9% INJ SCH ×2 (09:06→21:21)
[2017-03-03] MEDS: LASIX IV SCH ×2 (09:07→21:21)
[2017-03-03] MEDS: RANEXA PO SCH (09:08)
[2017-03-03] MEDS: CORDARONE PO SCH (09:08)
[2017-03-03] MEDS: PRAVACHOL PO SCH (09:08)
[2017-03-03] MEDS: COREG PO SCH ×2 (09:09→21:22)
[2017-03-03] MEDS: ASPIRIN PR SCH (09:09)
[2017-03-03] MEDS: ZAROXOLYN PO SCH (09:09)
[2017-03-03] MEDS: CALMOSEPTINE OINTMENT TOP SCH ×4 (09:10→21:23)
--- NOTE | 2017-03-03 09:47 | PROGRESS NOTE ---
DATE: 03/03/2017 SUBJECTIVE: He is about the same today. He denies shortness of breath or abdominal pain. He has not had any bowel movements or flatus that he can relate. OBJECTIVE: Vital Signs: Blood pressure 147/57, heart rate 87, respirations 16, afebrile. Intake 4.1 L. Output 500 mL. General Appearance: No acute distress. Skin: Warm and dry. HEENT: Conjunctivae are pink. Neck: Neck veins are not appreciated. Heart: Regular with occasional early beats. Lungs: Have equal breath sounds. Coarse. No crackles. Abdomen: Soft and nontender. Bowel sounds are not appreciated. Extremities: Have 3+ edema with pitting on the abdominal wall. LABORATORY DATA: Sodium 139, potassium 4.3, chloride 97, bicarbonate 29. BUN 97, creatinine 2.0. Hemoglobin 9.6. IMPRESSION: Acute kidney injury. He has had recurrent episodes of acute kidney injury, which are presumably acute tubular necrosis, as well as some prerenal with poor glomerular autoregulation. He is currently volume overloaded by exam, but his urine is concentrated and urine sodium was less than 10 with a My expectation is that he has low renal perfusion pressure based on the third spacing and profound hypoalbuminemia, coupled with poor glomerular autoregulation following recent episodes of acute tubular necrosis. However, he certainly does not need more fluid and may in fact developed respiratory compromise if he was volume overloaded further. I stopped his IV fluids and continuing his IV albumin over the next several days. His urine output seems to have picked up this morning. He has had over 100 mL in hour and a half. We will follow. cc: Alan Lopez MD
--- NOTE | 2017-03-03 14:18 | PROGRESS NOTE ---
DATE: 03/03/2017 SUBJECTIVE: The patient is off of pressor support. He is a little more confused today. OBJECTIVE: Vital Signs: Temperature 97 degrees, blood pressure 147/57, heart rate 87, respirations 16. O2 saturations 95% on 5 L nasal cannula. General: This is a chronically ill- appearing, elderly male, lying in bed, in no acute distress. Head: Normocephalic, atraumatic. Heart: S1, S2 normal. Lungs: Coarse breath sounds. No crackles. No rales. Abdomen soft. The abdominal incision is clean and appears to be healing well. Extremities: 3+ edema. No cyanosis. No calf tenderness. Neurologic: The patient is awake but has periods of confusion. He is able to move all 4 extremities. LABORATORY DATA: White blood cell count 18, hemoglobin 9.6, hematocrit 30, platelets 89,000. Sodium 139, potassium 4.3, chloride 97, CO2 of 29. BUN 97, creatinine 2, glucose 191. Magnesium 2. Total bilirubin 2.4. Direct bilirubin 1.2. AST 51, ALT 47. ASSESSMENT AND PLAN: 1. Sepsis. Continue with supportive measures. The patient is currently on IV antibiotic therapy. He is off pressor support. We will continue to monitor closely. The repeat blood cultures remain negative so far. 2. Acute kidney injury. Multifactorial. Management as per the demolition expert. 3. Status post exploratory laparotomy with bowel resection x2 with small bowel anastomosis secondary to ischemic bowel. The patient remains n.p.o. Further management as per the general surgeon. 4. Chronic atrial fibrillation, stable. 5. Leukocytosis, improved. 6. Continue on IV antibiotic therapy. 7. Diabetes mellitus, type 2. Continue on sliding scale insulin. 8. Thrombocytopenia. We will discontinue the Lovenox and monitor the platelet count closely. 9. Severe protein calorie malnutrition. The patient remains n.p.o. Continue on TPN as directed by the general surgeon. 10. The patient is a DNR LEVEL 2. 11. The patient remains critically ill with a high risk of mortality. cc: Carolyn Salvador MD
[2017-03-03] MEDS: LIPOSYN 20% 250 ML IV SCH (14:48)
[2017-03-03] MEDS: [UNRECOGNIZED DRUG - OTHER] IV SCH ×7 (14:49)
[2017-03-03] MEDS: M V I IV SCH ×7 (14:49)
[2017-03-03] MEDS: MAGNESIUM SULFATE IV SCH ×7 (14:49)
[2017-03-03] MEDS: TPN ELECTROLYTES IV SCH ×7 (14:49)
--- NOTE | 2017-03-03 16:39 | PROGRESS NOTE ---
DATE: 03/03/2017 PRESENT ILLNESS: The patient is status post surgery for small-bowel obstruction. He appeared to be septic, but has been improving. Yesterday, he had a marked leukocytosis and also his kidneys began to fail. MEDICATIONS: This is day 9 of treatment with micafungin and meropenem. Vancomycin was being given, but was stopped yesterday because of the patient's rising creatinine. PHYSICAL EXAMINATION: Vital Signs: Temperature is 97.5 degrees, pulse 87, respirations 16, blood pressure 147/57. General: This is an ill-appearing elderly male. He is in no acute distress. Lungs: Clear to auscultation. Cardiovascular: Regular heart rate. Thorax: Patient has a pacemaker present on the right side. The site is not swollen or tender. Abdomen: Soft and nontender. The patient's midline incision is intact. There is no surrounding erythema and no drainage. The patient's IV catheter site is not erythematous or swollen. LABORATORY AND X-RAY: Chest x-ray shows bibasilar infiltrates. Creatinine is 2. GFR is 33. CBC shows a white count of 18,690, hemoglobin 9.6, and platelet count 89,000. ASSESSMENT AND PLAN: The patient is being treated for sepsis. His white count, after rising quite a bit, now is coming down. Unfortunately, the patient's kidneys are beginning to fail. COMORBIDITIES: Include being elderly and recently having abdominal surgery. cc: Lewis Kulkarni MD
[2017-03-03] MEDS: MYCAMINE 100 MG in NS 100 ML IV SCH (18:32)
[2017-03-03] MEDS: DILAUDID IV PRN ×2 (20:17→23:21)
[2017-03-04] MEDS: HUMALOG SUBQ SCH ×7 (01:21→22:45)
[2017-03-04] MEDS: MERREM 1 GM in NS 50 ML IV SCH ×3 (01:39→16:32)
[2017-03-04] MEDS: SOLU-CORTEF IV SCH ×4 (03:44→20:50)
[2017-03-04] MEDS: DILAUDID IV PRN ×2 (03:45→16:32)
[2017-03-04] MEDS: QUESTRAN PO SCH ×2 (06:09→18:21)
--- NOTE | 2017-03-04 06:19 | Diag Imaging Result Doc PS360 ---
EXAM: CHEST-PORTABLE HISTORY: dyspnea TECHNIQUE: Portable COMPARISON: 03/03/2017 FINDINGS: There are sternal wires and surgical clips. Patient has a right-sided pacemaker the left jugular line. No pneumothoraces. The heart remains enlarged. Poor inspiratory effort. No consolidation. The vessels are not distended. IMPRESSION: Stable chest. Electronically signed by Corby Phillips 03/04/2017 6:16 AM
[2017-03-04 06:22] LABS: BASO% 0.3 % (0.0-0.8); EOS# 0.01 X1000 (0.0-0.7); EOS% 0.1 % (0.0-10.0); HEMOGLOBIN 9.5 g/dL (14.0-18.0); IMM GRAN# 0.14 X1000 (0.0-0.04); IMM GRAN% 1.2 % (0.0-0.5); LYMPH# 0.68 X1000 (1.2-3.4); LYMPH% 5.9 % (20.5-51.1); MANUAL DIFF NEEDED? NO; MCH 22.6 PG (27-31); MCHC 30.6 g/dL (33-37); MCV 73.6 FL (81-99); MONO# 0.23 X1000 (0.11-0.59); NEUT% 90.5 % (42.2-75.2); PLT 67 X1000 (130-400); RBC 4.21 XMIL (4.7-6.1)
--- NOTE | 2017-03-04 06:27 | PROGRESS NOTE ---
DATE: 03/04/2017 SUBJECTIVE: The patient did have some increased drainage from his midline, although he took in the blue food coloring with liquids. There is no blue. It is coming from the midline. Looks a little more like potential purulence at this time than just straight serosanguineous fluid. He may be decompressing some of his intra-abdominal processes out his incision, but at this time the food does not look bilious or blue. He still off his Pavel-Synephrine and amiodarone. OBJECTIVE: Vital Signs: Patient is currently afebrile. Most recent pulse 79, most recent respiratory rate 16 and nonlabored. Most recent blood pressure 87/56. General Examination: No acute distress. Resting comfortably. Cardiovascular: Regular rate and rhythm. Lungs: Some coarse sounds noted bilaterally. Abdomen: Soft, mildly distended. Incision looks like it is healing well. There is some drainage again noted on his dressing. I could not actively express any drainage while in the room. There is no erythema. His urine output has still been somewhat low. LABORATORY: Currently pending. ASSESSMENT AND PLAN: A 71-year-old male, status post small bowel resection. 1. Small-bowel resection. At this time, the patient is relatively is the same compared to yesterday. His labs are pending for this morning so I cannot assess the change. His recent blood cultures are negative at this point. We will continue to monitor with the blue food coloring to see if any comes out of the incision, suggestive of a fistula developing, but otherwise continue to monitor him. 2. Severe protein malnutrition. At this time, the patient is on TPN. Even with TPN, his albumin is remaining at 1.8 and his pre-albumin 7. 3. Leukocytosis. At this time his labs are pending. His white count yesterday had decreased slightly. If it continues to increase, may need to consider CT scan. 4. Acute renal failure. At this time his urine output still somewhat marginal. His labs from this morning are pending. His BUN and creatinine have gone up. Dr. Lopez is on board. Will follow with his recommendations. cc: Zion Saucedo MD
[2017-03-04 06:38] LABS: MAGNESIUM 2.1 mg/dL (1.5-2.7)
[2017-03-04 06:43] LABS: ALBUMIN 2.1 g/dL (3.5-5.0); DIRECT BILIRUBIN 1.1 mg/dL (0.00-0.20); TOTAL BILIRUBIN 2.75 mg/dL (0.20-1.00); TOTAL PROTEIN 4.1 g/dL (6.3-8.3)
[2017-03-04 07:15] LABS: CALCIUM 7.1 mg/dL (8.8-10.2); POTASSIUM 4.3 mmol/L (3.5-5.1)
[2017-03-04] MEDS: RANEXA PO SCH (08:08)
[2017-03-04] MEDS: ASPIRIN PR SCH (08:08)
[2017-03-04] MEDS: COREG PO SCH ×2 (08:08→20:53)
[2017-03-04] MEDS: CORDARONE PO SCH (08:08)
[2017-03-04] MEDS: PRAVACHOL PO SCH (08:08)
[2017-03-04] MEDS: ALBUMIN 25% IV SCH (08:08)
[2017-03-04] MEDS: CALMOSEPTINE OINTMENT TOP SCH ×4 (08:09→21:00)
[2017-03-04] MEDS: SODIUM CHLORIDE 0.9% INJ SCH (09:28)
[2017-03-04] MEDS: PROTONIX IV SCH ×2 (09:28→20:51)
--- NOTE | 2017-03-04 11:10 | PROGRESS NOTE ---
DATE: 03/04/2017 SUBJECTIVE: He does not feels well today. He does not really answer my questions, though he is arousable. OBJECTIVE: Vital Signs: Blood pressure 119/68, heart rate 81, respirations 22, afebrile. Intake is 2.8 L. Output 1.6 L. General: Mental status as above. No acute distress. Skin: Warm and dry. Neck: Neck veins are not appreciated. Heart: Regular. Lungs: Have equal breath sounds. Few scattered crackles. Abdomen: Soft, nontender. Bowel sounds are minimal to absent. Extremities: Have 3+ edema. No clubbing or cyanosis. LABORATORY DATA: Sodium 137, potassium 4.3, chloride 94, bicarbonate 28, BUN 117 creatinine 2.1, hemoglobin is 9.5. IMPRESSION: Acute kidney injury. Labs continue to slowly worsen. His urine output was better in the last 24 hours than it has been in the previous 2 days. His status, however, remains inherently unstable with his ongoing issues with bowel ischemia. It is likely that his renal function will continue to deteriorate. He does not have any acute indications for dialysis today but it is likely these will evolve over the next 48-72 hours. He is really not a good candidate for dialysis given that he has this unresolved issue with his GI tract. He is markedly malnourished and physically debilitated and consequently, rehabilitation under the best of circumstances will be poor. From my perspective, I think a gennaro discussion with the family regarding goals of care should proceed any further escalation of his treatment. Ultimately I do not think dialysis will change his outcome. cc: Alan Lopez MD
[2017-03-04] MEDS: TPN ELECTROLYTES IV SCH ×7 (13:33)
[2017-03-04] MEDS: LIPOSYN 20% 250 ML IV SCH ×2 (13:33→17:33)
[2017-03-04] MEDS: MAGNESIUM SULFATE IV SCH ×7 (13:33)
[2017-03-04] MEDS: M V I IV SCH ×7 (13:33)
[2017-03-04] MEDS: [UNRECOGNIZED DRUG - OTHER] IV SCH ×7 (13:33)
--- NOTE | 2017-03-04 15:46 | PROGRESS NOTE ---
DATE: 03/04/2017 SUBJECTIVE: The patient is resting comfortably in bed. He has some oozing from his abdominal incision. OBJECTIVE: Vital Signs: Temperature 97.9 degrees, blood pressure 136/73, heart rate 78, respirations 21, O2 saturations 100% on 5 L nasal cannula. General: This is an elderly male lying in bed in no acute distress. Head: Normocephalic, atraumatic. Heart: S1, S2 normal. Regular rate. Lungs: Coarse breath sounds bilaterally. No crackles. Abdomen : Distended. The patient does have drainage coming from the abdominal incision. Extremities: 3 + edema. No cyanosis. No calf tenderness. Neurologic: The patient is awake and alert. He is able to move all 4 extremities. LABS: White blood cell count 11, hemoglobin 9.5, hematocrit 31, platelets 67, 000. Sodium 137, potassium 4.3, chloride 94, CO2 28, BUN 117, creatinine 2.1, glucose 241, total bilirubin 2.7, direct bilirubin 1.1, AST 43, ALT 37, alkaline phosphatase 99, albumin 2.1. ASSESSMENT AND PLAN: 1. Sepsis. Continue with IV antibiotic therapy. Blood cultures remain negative. Dr. Kulkarni is following. 2. Acute kidney injury. Unchanged. The patient is currently receiving albumin infusion. Further management as per the veterinarian. 3. Status post exploratory laparotomy with bowel resection x2 with small bowel anastomosis secondary to ischemic bowel. The patient has been having drainage from his abdominal incision. That fluid was sent for culture and is currently pending. Further management as per the general surgeon. 4. Arrhythmia. The patient's rate is currently controlled. Continue on amiodarone. 5. Leukocytosis. Improved. Continue on the current antibiotic and antifungal treatment. 6. Diabetes mellitus type 2. Continue on sliding scale insulin. 7. Thrombocytopenia. The patient's platelet count is lower today. This may be secondary to sepsis. Will continue to treat the underlying infection. 8. Severe protein calorie malnutrition. Continue on TPN. 9. Volume overload. Continue on daily albumin infusions. 10. The patient is a DNR level 2. cc: Carolyn Salvador MD [facility]OVE HOSPITALCoretta
--- NOTE | 2017-03-04 16:48 | PROGRESS NOTE ---
DATE: 03/04/2017 PRESENT ILLNESS: The patient is status post surgery for small-bowel obstruction. He has been doing well except for recently he has developed drainage coming from his lower abdominal incision. He has had leukocytosis but the white count is actually coming down. MEDICATIONS: Patient has been receiving micafungin and meropenem now for 10 days. PHYSICAL EXAMINATION: Vital Signs: Temperature is 97.4 degrees, pulse 91, respirations 27, blood pressure 111/66. General: This is a somewhat ill-appearing, elderly male. He is in no acute distress. Lungs: Clear to auscultation. Thorax: Patient has a pacemaker present on the right side. The site is not erythematous or swollen. Cardiovascular: Heart rate was regular. Lungs: Clear to auscultation. Abdomen: Soft and nontender. The incision is intact but there is a drainage coming from the wound which has been sent already for culture. LAB AND RADIOLOGY: Chest x-ray shows no pneumonia. The patient's CBC shows a white count now is down to 11,490, hemoglobin 9.5, platelet count is 67,000. Creatinine is 2.1. GFR is 31. ASSESSMENT AND PLAN: The patient has been treated for sepsis and is doing well. He does unfortunately have some drainage coming from the abdomen, the culture of which is pending. The patient's white count is coming down as mentioned above. His creatinine still is going up a little bit. It was 2 yesterday and today it is 2.1. COMORBIDITIES: Include he is elderly and he recently had abdominal surgery. cc: Lewsi Kulkarni MD
[2017-03-04] MEDS: MYCAMINE 100 MG in NS 100 ML IV SCH (17:13)
[2017-03-05] MEDS: HALDOL IV PRN (00:51)
[2017-03-05] MEDS: LIPOSYN 20% 250 ML IV SCH (01:19)
[2017-03-05] MEDS: MERREM 1 GM in NS 50 ML IV SCH ×3 (01:20→16:49)
[2017-03-05] MEDS: HUMALOG SUBQ SCH ×7 (01:20→21:23)
[2017-03-05] MEDS: SOLU-CORTEF IV SCH ×4 (02:49→21:23)
[2017-03-05] MEDS: QUESTRAN PO SCH ×2 (06:04→21:23)
[2017-03-05 06:56] LABS: BASO% 0.7 % (0.0-0.8); HEMATOCRIT 29.7 % (42.0-52.0); HEMOGLOBIN 9.2 g/dL (14.0-18.0); IMM GRAN# 0.12 X1000 (0.0-0.04); IMM GRAN% 1.1 % (0.0-0.5); LYMPH# 0.84 X1000 (1.2-3.4); LYMPH% 7.6 % (20.5-51.1); MANUAL DIFF NEEDED? YES; MCH 22.9 PG (27-31); MCV 73.9 FL (81-99); MONO% 2.7 % (1.7-9.3); NEUT% 87.9 % (42.2-75.2); RBC 4.02 XMIL (4.7-6.1)
[2017-03-05 06:58] LABS: PLT 33 X1000 (130-400)
[2017-03-05 07:05] LABS: BANDS 40 % (0-1); HYPOCHROM 2+; LYMPHS 4 % (21-51); NRBC 1 % (0-0); POLYCHROM 1+
[2017-03-05 07:13] LABS: CALCIUM 7.5 mg/dL (8.8-10.2); MAGNESIUM 2.2 mg/dL (1.5-2.7); POTASSIUM 4.2 mmol/L (3.5-5.1)
[2017-03-05 07:16] LABS: ALBUMIN 2.4 g/dL (3.5-5.0); DIRECT BILIRUBIN 1.5 mg/dL (0.00-0.20); TOTAL BILIRUBIN 3.48 mg/dL (0.20-1.00); TOTAL PROTEIN 4.6 g/dL (6.3-8.3)
[2017-03-05] MEDS: DILAUDID IV PRN ×2 (08:03→18:19)
[2017-03-05] MEDS: ALBUMIN 25% IV SCH (09:17)
[2017-03-05] MEDS: ASPIRIN PR SCH (09:17)
[2017-03-05] MEDS: PROTONIX IV SCH ×2 (09:18→21:25)
[2017-03-05] MEDS: RANEXA PO SCH (09:18)
[2017-03-05] MEDS: CALMOSEPTINE OINTMENT TOP SCH ×4 (09:19→21:26)
[2017-03-05] MEDS: COREG PO SCH ×2 (09:19→21:25)
[2017-03-05] MEDS: CORDARONE PO SCH (09:19)
[2017-03-05] MEDS: PRAVACHOL PO SCH (09:19)
--- NOTE | 2017-03-05 14:07 | PROGRESS NOTE ---
DATE: 03/05/2017 SUBJECTIVE: About the same. He is spontaneously awake and answers questions, though it is not clear that he understands. OBJECTIVE: Vital Signs: Blood pressure 94/64, heart rate 84, respirations 30, afebrile. Intake 3 L. Output 600 mL. General: No acute distress. Skin: Warm and dry. Conjunctivae are pink. Neck: Neck veins are distended. Trachea is midline. Heart: Irregular and tachycardic. Lungs: Equal breath sounds. Coarse. A few crackles scattered. Abdomen: Distended and firm, and tender diffusely. No bowel sounds really appreciated today. Extremities: Have 3+ edema. No clubbing or cyanosis. LABORATORY DATA: Sodium 135, potassium 4.2, chloride 93, bicarbonate 28, BUN 134, creatinine 2.5. IMPRESSION: Acute kidney injury, nonoliguric. BUN is now 134. I discussed the case with Dr. Salvador and Dr. Purvis today, and with Dr. Saucedo in the recent past. He really has no surgical options for his bowel leak. As such, he has a problem that is most likely to be fatal with regard to his gastrointestinal tract. He is, therefore, not really a candidate for an escalation of his care with the institution of hemodialysis. This, therefore, will not be offered. Dr. Salvador has reached out to the family, and they understand and are ready to begin to limit the intervention. No other changes. cc: Alan Lopez MD
--- NOTE | 2017-03-05 14:17 | PROGRESS NOTE ---
DATE: 03/05/2017 SUBJECTIVE: The patient is confused this morning. His urine output has dropped and he remains hypotensive. OBJECTIVE: Vital Signs: Temperature 97 degrees, blood pressure 94/64, heart rate 84, respirations 30, O2 saturations 100% on 3 L nasal cannula. General: This is a chronically ill- appearing elderly male lying in bed in no acute distress. Heart: S1, S2 normal. Regular rate and rhythm. Lungs: Coarse breath sounds bilaterally. Mild rhonchi. Abdomen: Distended. Hypoactive bowel sounds. Minimal drainage coming from the abdominal incision. Extremities: 3+ edema up to the knees. No cyanosis, no calf tenderness. Neuro: The patient is awake but confused. He is able to move all 4 extremities. LABS: White blood cell count 11, hemoglobin 9.2, hematocrit 29, platelets 33, 000. Sodium 135, potassium 4.2, chloride 93, CO2 28, BUN 134, creatinine 2.5, glucose 130, calcium 7.5, phosphorus 6, total bilirubin 3.4, direct bilirubin 1.5, AST 46. ASSESSMENT AND PLAN: 1. Sepsis. So far the cultures have remained negative. The patient remains on broad-spectrum antibiotics. 2. Acute kidney injury. The patient's renal function continues to worsen and his urine output has decreased over the last several days. I had a discussion with Dr. Lopez regarding further treatment for the patient's renal failure and it is unlikely that this will improve the patient's outcome. I have spoken to the patient's power of securities attorney Mickie Gomez who stated that she is interested in meeting with palliative care and possibly cutting back on any further intervention. 3. Severe thrombocytopenia. The patient's platelet count has continued to drop over the last several days. A HIT antibody was done that was noted to be negative. This may represent sepsis. Will consult Hematology for further recommendations. 4. Status post exploratory laparotomy with bowel resection x2 with small bowel anastomosis secondary to ischemic bowel. The patient's abdomen remains distended. The patient continues to have drainage from the abdominal incision. The patient is not getting any better. Again this was discussed with the patient's power of securities attorney. Will continue to follow closely. 5. Hypotension. Aware. 6. Atrial flutter. The patient continues on amiodarone. 7. Severe protein calorie malnutrition. Continue on TPN. 8. Volume overload. Unchanged. 9. Disposition. The patient remains critically ill with a high risk of mortality. I had a discussion with the patient's power of securities attorney Vandana Gomez and she is in agreement with palliative care being involved. cc: Carolyn Salvador MD MTDD
[2017-03-05] MEDS: TPN ELECTROLYTES 20 ML, MAGNESIUM SULFATE 5 MEQ, POTASSIUM CHLORIDE 20 MEQ, M.V.I.-12 1... IV SCH ×12 (14:21→15:20)
--- NOTE | 2017-03-05 17:11 | CONSULTATION ---
DATE OF CONSULTATION: 03/05/2017 REQUESTING PHYSICIAN: Dr. Salvador. REASON FOR CONSULTATION: Thrombocytopenia. HISTORY OF PRESENT ILLNESS: Mr. Pereira was actually admitted to the hospital back on 02/02/2017 with increasing shortness of breath and swelling. It appears that he was found to have ischemic bowel and underwent a exploratory laparotomy with bowel resection. He has had some developed sepsis and is now in the ICU on IV antibiotics. Patient's platelet count was normal on admission and has slowly been trending downward and has significantly dropped within the last 3 days. He has a platelet count of 33,000 at this time. He does not appear to have any gennaro bleeding per the patient's report, and per the report of his family members at bedside. He has also developed acute renal failure during this hospitalization. We have been consulted due to the acute drop in his platelets. PAST MEDICAL HISTORY: 1. Congestive heart failure. 2. Hypertension. 3. Hyperlipidemia. 4. Coronary artery disease. 5. Peripheral vascular disease. 6. Ischemic bowel. PREVIOUS SURGERIES: 1. Appendectomy. 2. Right femoral bypass of the lower extremities. 3. Left stenting of the lower extremities. 4. Cholecystectomy. 5. Pacemaker placement. 6. Colon resection. 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 He uses smokeless tobacco in the form of dip. He also smokes cigars. The patient denies any illicit drug use. The patient also has a history of alcohol abuse, but has not had a drink in several years. FAMILY HISTORY: Father has diabetes and coronary disease. His father from an HI at the age of 68. Brother had an HI as well, passing away at age 68. REVIEW OF SYSTEMS: A 10 point review of systems has been conducted and is negative, except for what is expressed in the history of present illness. PHYSICAL EXAMINATION: Vital Signs: Temperature 97 degrees, heart rate 84, respirations 30, blood pressure 94/64, O2 saturations 100% on 3 L nasal cannula. General: Elderly, chronically ill appearing gentleman lying in hospital bed with 2 family members at bedside. HEENT: Head normocephalic atraumatic. Eyes: Pupils equal, round, reactive. Ears, nose, throat, neck, and mouth: Oral mucosa appears to be normal. Neck: Trachea is midline. Cardiovascular: S1, S2 heard. Respiratory: Essentially clear to auscultation. Gastrointestinal: Abdomen is soft, nontender, nondistended. Positive bowel sounds. Musculoskeletal: Some chronic osteoarthritis changes noted. Extremities: Patient has edema x4 extremities that is trace. Neurologic: Patient is alert and awake. Does not seem very oriented. LABS AND STUDIES: White blood cells 11.07, hemoglobin 9.2, hematocrit 29.7, platelet count 33. Sodium 135, potassium 4.2, chloride 93, CO2 is 28, BUN is 134, creatinine is 2.5, glucose is 130, total bilirubin 3.48. ASSESSMENT AND PLAN: 1. Thrombocytopenia. Likely secondary to sepsis with underlying multiorgan failure. We will go ahead and check a disseminated intravascular coagulation panel. This has been ordered. We will also go ahead and check heparin antibodies. Further treatment based off of those results. Last void heparin at this time. Would try to keep his platelet count greater than 20,000. Otherwise, transfuse for any bleeding. No bleeding at this time. 2. Sepsis. Continue intravenous antibiotics. Multiple doctors are involved in this patient's care at this time, including infectious disease. 3. Acute kidney injury. The patient is receiving albumin infusions. Management per nephrology. 4. Status post ischemic bowel with bowel resection. Management per general surgery. 5. Arrhythmia. Rate controlled at this time per cardiology. 6. Volume overload. Continue daily albumin. 7. Leukocytosis. Improving slowly. I want to thank you for consulting us and allowing us to participate in Mr. Pereira care. Will continue to follow along and adjust our treatment plan per his hospital course. Dictated by ROXANA Johnson for Ami Westbrook MD cc: Ami Westbrook MD
[2017-03-05] MEDS: MYCAMINE 100 MG in NS 100 ML IV SCH (18:17)
[2017-03-06] MEDS: LIPOSYN 20% 250 ML IV SCH ×3 (01:36→01:38)
[2017-03-06] MEDS: MERREM 1 GM in NS 50 ML IV SCH ×2 (01:37→09:23)
[2017-03-06] MEDS: HUMALOG SUBQ SCH ×3 (01:37→09:24)
[2017-03-06] MEDS: SOLU-CORTEF IV SCH ×2 (03:30→09:23)
[2017-03-06] MEDS: QUESTRAN PO SCH (06:04)
[2017-03-06 06:30] LABS: BASO% 0.4 % (0.0-0.8); EOS# 0.01 X1000 (0.0-0.7); EOS% 0.1 % (0.0-10.0); HEMATOCRIT 28.1 % (42.0-52.0); HEMOGLOBIN 8.6 g/dL (14.0-18.0); IMM GRAN# 0.11 X1000 (0.0-0.04); IMM GRAN% 1.4 % (0.0-0.5); LYMPH# 0.65 X1000 (1.2-3.4); LYMPH% 8.1 % (20.5-51.1); MANUAL DIFF NEEDED? YES; MCH 22.8 PG (27-31); MCHC 30.6 g/dL (33-37); MCV 74.3 FL (81-99); MONO# 0.19 X1000 (0.11-0.59); MONO% 2.4 % (1.7-9.3); NEUT% 87.6 % (42.2-75.2); PLT 40 X1000 (130-400); RBC 3.78 XMIL (4.7-6.1)
[2017-03-06 06:38] LABS: INR 1.24; PROTIME 13.2 Seconds (9.2-11.7)
[2017-03-06] MEDS: DILAUDID IV PRN ×2 (06:42→20:04)
[2017-03-06 06:58] LABS: BANDS 8 % (0-1); LYMPHS 4 % (21-51); MONO 5 % (1-9); POLYCHROM OCCASIONAL
[2017-03-06 06:59] LABS: HYPOCHROM OCCASIONAL
[2017-03-06 07:02] LABS: MAGNESIUM 2.4 mg/dL (1.5-2.7)
[2017-03-06 07:05] LABS: ALBUMIN 2.3 g/dL (3.5-5.0); DIRECT BILIRUBIN 1.9 mg/dL (0.00-0.20); TOTAL BILIRUBIN 3.99 mg/dL (0.20-1.00); TOTAL PROTEIN 4.3 g/dL (6.3-8.3)
[2017-03-06 07:30] LABS: CALCIUM 7.6 mg/dL (8.8-10.2); POTASSIUM 4.4 mmol/L (3.5-5.1)
[2017-03-06] MEDS ORDERED: COREG PO SCH (09:00)
[2017-03-06] MEDS: CORDARONE PO SCH (09:23)
[2017-03-06] MEDS: PRAVACHOL PO SCH (09:24)
[2017-03-06] MEDS: RANEXA PO SCH (09:24)
[2017-03-06] MEDS: PROTONIX IV SCH (09:24)
[2017-03-06] MEDS: CALMOSEPTINE OINTMENT TOP SCH (09:25)
[2017-03-06] MEDS: ASPIRIN PR SCH (09:26)
[2017-03-06] MEDS ORDERED: ATIVAN IV PRN (11:31)
[2017-03-06] MEDS ORDERED: TRANSDERM-SCOP TD SCH (11:45)
--- NOTE | 2017-03-06 13:58 | PROGRESS NOTE ---
DATE: 03/06/2017 SUBJECTIVE: The patient is resting comfortably in bed. He complains of generalized abdominal pain. He has had more drainage from the incision overnight and even this morning. OBJECTIVE: Vital Signs: Temperature 97 degrees, blood pressure 81/57, heart rate 85, respirations 14, O2 saturation is 100% on 2 L nasal cannula. General: This is a chronically ill- appearing, elderly male, lying in bed, in no acute distress. Heart: S1, S2, normal. Regular rate. Lungs: Coarse breath sounds bilaterally. No crackles. Abdomen: Distended. No bowel sound. Continuous drainage noted from the abdominal incision. Extremities: There is 3+ edema to the knees. No cyanosis. No calf tenderness. Neurologic: The patient is awake and alert with periods of confusion. LABS: White blood cell count 7.9, hemoglobin 8.6, hematocrit 28, platelets 40, 000. Sodium 132, potassium 4.4, chloride 97, CO2 26, BUN 152, creatinine 3, glucose 224, phosphorus 6.1. ASSESSMENT: 1. Sepsis. 2. Acute kidney injury 3. Severe thrombocytopenia. 4. Status post exploratory laparotomy with bowel resection x2 secondary to ischemic bowel. 5. Atrial flutter. 6. Severe protein calorie malnutrition. 7. Volume overload 8. DM type 2 9. Anemia of chronic disease PLAN: I had an extensive discussion with Petra Vasquez, who is the Power of [employer] for the patient. She is in agreement with making the patient comfort measures only. The POA also had a discussion with Dr. Purvis early this morning. At this time we will discontinue all lab draws and imaging. Will discontinue all medications except for medications to keep the patient comfortable. The patient is now a DNR level 1. We will transfer the patient to a private room on the medical floor. cc: Carolyn Salvador MD [facility]
[2017-03-06] MEDS: DUONEB (A & A) INH SCH ×2 (16:23→22:42)
[2017-03-07] MEDS: DUONEB (A & A) INH SCH ×2 (04:02→11:44)
[2017-03-07] MEDS: DILAUDID IV PRN ×4 (04:25→14:18)
--- NOTE | 2017-03-07 06:45 | PROGRESS NOTE ---
DATE: 03/07/2017 SUBJECTIVE: Reviewed notes from over the weekend. Reviewed Dr. Salvador's note of the patient. The patient has now been made comfort care measures only. All other aggressive interventions have been stopped. OBJECTIVE: Vital Signs: Patient is currently afebrile. His vital signs are stable. General Examination: Resting comfortably. Cardiovascular: Regular rate and rhythm. Lungs: Some coarse sounds noted bilaterally. Abdomen: Distended. Drainage noted from the midline incision. There is an ostomy appliance catching it all. Laboratories: None. ASSESSMENT AND PLAN: A 71-year-old, male status post small-bowel resection. Postoperative state. At this time, reviewed notes from the weekend and agree with comfort care measures. Patient's overall prognosis is poor. There is not an ideal surgical intervention at this time. We will continue to follow peripherally with you through the course of this stay. At this point, given the comfort care measures and the lack of any surgical intervention, I agree that this is the likely best course of action for the patient given the overall clinical picture. cc: Zion Saucedo MD
[2017-03-07 08:02] VITALS: BP 87/53
[2017-03-07 08:03] LABS: ALBUMIN 2.2 g/dL (3.5-5.0); CALCIUM 7.6 mg/dL (8.8-10.2); POTASSIUM 5.7 mmol/L (3.5-5.1)
--- NOTE | 2017-03-07 15:41 | PROGRESS NOTE ---
DATE: 03/07/2017 SUBJECTIVE: The patient is currently resting comfortably. He is not having any pain as per family members present at the bedside. OBJECTIVE: Vital Signs: Temperature 97 degrees, blood pressure 87/63, heart rate 70. Respirations 18, O2 saturation 94% on 4 L nasal cannula. General: This is a chronically ill- appearing, elderly male, lying in bed, in no acute distress. Head: Normocephalic, atraumatic. Heart: S1, S2. Normal. Regular rate. Lungs: Coarse breath sounds bilaterally. Abdomen: Hypoactive bowel sounds. Distended. Extremities: 3+ edema. ASSESSMENT: 1. Sepsis. 2. Acute kidney injury. 3. Severe thrombocytopenia. 4. Atrial flutter. 5. Bowel resection x2. PLAN: We will continue with comfort measures. The patient's family members were updated at the bedside today. cc: Carolyn Salvador MD
--- NOTE | 2017-03-07 21:44 | DISCHARGE SUMMARY ---
ADMISSION DATE: 02/02/2017 DISCHARGE DATE: 03/07/2017 FINAL DISCHARGE DIAGNOSES: 1. Sepsis. 2. Status post exploratory laparotomy with bowel resection x2 secondary to ischemic bowel. 3. Acute kidney injury. 4. Thrombocytopenia. 5. Atrial flutter. 6. Severe protein calorie malnutrition. 7. Volume overload. 8. Anemia of chronic disease. 9. Diabetes mellitus type 2. CONSULTATIONS REQUESTED DURING THIS HOSPITAL STAY: 1. Nephrology consultation with Dr. Lopez. 2. General Surgery consultation with Dr. Saucedo. 3. Pulmonary consultation with Dr. Addison. 4. Infectious Disease consultation with Dr. Kulkarni. 5. Cardiology consultation with Dr. Bedolla. PROCEDURES PERFORMED DURING THIS HOSPITAL STAY: 1. Right femoral vein ultrasound-guided Vas-Cath placement performed on 2016. 2. Exploratory laparotomy with small bowel resection performed on 02/12/2017. 3. Re-exploration of the recent laparotomy with small bowel resection x2 with small bowel anastomosis and delayed abdominal closure. HOSPITAL COURSE: Mr. Pereira is a 71-year-old male with a history of multiple medical problems who initially presented with a chief complaint of increasing shortness of breath. The patient was initially thought to have CHF exacerbation. An abdominal x-ray was done on admission that revealed constipation. This was later followed up with a CT of the abdomen and pelvis which revealed no evidence of bowel obstruction. The patient was noted to have worsening renal function so Nephrology was consulted. The patient continued to worsen so a CT of the chest, abdomen, and pelvis without contrast was performed that revealed left lower lobe pneumonia as well as an occluded. SMA. In light of this finding, General Surgery was consulted and the patient had a right femoral vein ultrasound-guided Vas-Cath placed. Two days later the patient was taken to the OR for an exploratory laparotomy with small-bowel resection. On 02/13/2017 the patient was taken again to the OR for re-exploration and resection again with small bowel anastomosis. The patient eventually had a waxing and waning hospitalization complicated by sepsis, hypotension and atrial flutter as well as pneumonia. The patient was dialyzed for several weeks while hospitalized. The patient's renal function improved, however, started to worsen again and the patient was noted to have draining from his abdominal incision. The patient's volume status continued to worsen and this was discussed with the patient and his power of insurance attorney, and they both opted to focus on comfort measures only. On 03/06/2017, the patient was made a DNR level 1 and switched to comfort measures. The patient was then transferred to the medical floor. On 03/07/2017 , at 14:42 the patient was pronounced . The patient's family was present at the time of . cc: Carolyn Salvador MD MTDD
== END 2017-03-07 14:42 | disposition expired ==
LOC: ED 12:11 → 3N 22:05 → SUATTDRO 22:05 → ICU 02-09 06:24 → 3N 03-06 13:28
PROVIDERS: ATTEND Internal Medicine